=== PATIENT | male | born 1935 | race Caucasian/White ===

== ENCOUNTER 2017-10-26 20:41 | Outpatient (CLI) | payer MEDICARE, OTHER ==
--- NOTE | 2017-10-26 22:54 | Ultrasound Report ---
Procedure Date: 10/26/2017 Accession Number: [id number] / [id number] Procedure: US - Retroperitoneal CPT Code: FULL RESULT: EXAM: RENAL ULTRASOUND EXAM DATE: 10/26/2017 09:22 PM. CLINICAL HISTORY: RENAL TUBULO-INTERSTITIAL DISEASE, UNSPECIFIED. COMPARISON: None. TECHNIQUE: Real-time scanning was performed with static images obtained. FINDINGS: Right Kidney: 9.5 x 5.1 x 5.5 cm. Normal echotexture with no stones, contour-deforming masses, or hydronephrosis. Left Kidney: 10.4 x 4.3 x 4.9 cm. Normal echotexture with no stones, contour-deforming masses, or hydronephrosis. Bladder: Bilateral jets seen. The prevoid bladder volume was 571 cc. The postvoid bladder volume was 405 cc. Other: None. IMPRESSION: 1. Kidneys are unremarkable. 2. Large postvoid residual measuring 405 cc. 3. Bilateral ureteral jets are seen in the bladder. [facility] The call report notification system was initiated by Dr. Dharmesh Thrasher at 22:48 hrs on 10/26/17. The above findings were discussed with Dr. David by Dr. Dharmesh Thrasher at 22:53 hrs on 10/26/17.
== END 2017-10-26 20:42 | disposition home or self-care (01) ==
LOC: DI 20:41
PROVIDERS: ATTEND Specialist
DX: R41.9 Unspecified symptoms and signs involving cognitive functions and awareness (principal); N15.9 Renal tubulo-interstitial disease, unspecified
CPT/HCPCS: 76770

== ENCOUNTER 2017-11-20 08:27 | Outpatient (CLI) | payer MEDICARE, OTHER ==
--- NOTE | 2017-11-20 13:36 | CT Report ---
Procedure Date: 11/20/2017 Accession Number: [id number] / [id number] Procedure: CT - Lumbar Spine W/O CPT Code: FULL RESULT: EXAM: CT LUMBAR SPINE WITHOUT CONTRAST EXAM DATE: 11/20/2017 08:53 AM. CLINICAL HISTORY: Chronic low back pain. COMPARISONS: MRI 02/27/2015. TECHNIQUE: Thin-section axial images were acquired of the lumbar spine from T10 to S1 without contrast. Post-processing: Coronal and sagittal reformats. Other: None. In accordance with CT protocol optimization, one or more of the following dose reduction techniques were utilized for this exam: automated exposure control, adjustment of mA and/or KV based on patient size, or use of iterative reconstructive technique. FINDINGS: Alignment: 11 degrees convex right scoliosis centered at L2. No spondylolisthesis. Bones: Five [id number] lumbar vertebral bodies are present. Osteopenia. New mild to moderate anterior compression fracture at L4, centered toward the left. Subtle sclerosis present at this site. 35% height loss anteriorly. 4 mm retropulsion of the posterior superior aspect. Disk Levels/Facets: Flowing anterior and right lateral osteophytes partially visualized in the lower thoracic spine. T10-T11: Small disk osteophyte complex. Minimal central canal stenosis. Mild bilateral neural foramen stenosis. T11-T12: Small disk osteophyte complex. Minimal central canal stenosis. Mild bilateral neural foramen stenosis. T12-L1: Small disk osteophyte complex. Mild bilateral facet hypertrophy. This is similar. L1-L2: Small disk osteophyte complex. Mild bilateral facet hypertrophy. Minimal central canal stenosis. This is similar. L2-L3: Small disk osteophyte complex. Moderate bilateral facet and ligamentum flavum hypertrophy. Moderate central canal stenosis. Mild right and moderate left neural foramen stenosis. This is similar. L3-L4: Small disk osteophyte complex. Moderate bilateral facet and ligamentum flavum hypertrophy. Retropulsion of the posterior superior aspect of L4 contributes to severe central canal stenosis, progressed. Moderate to severe bilateral neural foramen stenosis, progressed. L4-L5: Small disk osteophyte complex. Right paracentral and foraminal disk protrusion increased in conspicuity. Moderate to severe bilateral facet and ligamentum flavum hypertrophy. At least moderate central canal stenosis, slightly progressed. Moderate to severe right neural foramen stenosis, slightly progressed. L5-S1: Small disk osteophyte complex. Moderate bilateral facet hypertrophy. Moderate bilateral neural foramen stenosis. This is similar. Musculature: Mild fatty atrophy in the posterior paraspinous musculature. Other: Peribronchial thickening partially visualized. Ovoid focus of intermediate attenuation present along the medial aspect right lower lobe measuring approximately 5.8 x 2.4 x 4.3 cm. Curvilinear calcifications present along the distal aspect. This may abut the posterior right aspect of the esophagus. Severe atherosclerosis in the abdominal aorta and bilateral iliac arteries. Moderate to severe degenerative changes at the sacroiliac joints. Degenerative changes partially visualized at the bilateral hips. IMPRESSION: 1. Acute or subacute burst fracture at L4 with mild to moderate anterior height loss. Retropulsion contributes to severe central canal stenosis at L3-L4, progressed from previous. 2. Disk osteophyte complex, right paracentral and foraminal disk protrusion, and facet hypertrophy at L4-L5 result in at least moderate central canal stenosis and moderate to severe right neural foramen stenosis, progressed. 3. Moderate to severe degenerative disk and facet changes. Otherwise similar compared to 2015. 4. 5.8 cm ovoid lesion posterior medial aspect right lower lobe. This is incompletely evaluated on the current exam. This may be due to congenital anomaly such as sequestration or duplication cyst. Soft tissue mass not excluded. Recommend correlation with any prior CT chest. If none has been performed, CT chest with IV contrast recommended for further characterization. [facility]
== END 2017-11-20 08:28 | disposition home or self-care (01) ==
LOC: DI 08:27
PROVIDERS: ATTEND Family Medicine
DX: S32.041A Stable burst fracture of fourth lumbar vertebra, initial encounter for closed fracture (principal); M51.36 Other intervertebral disc degeneration, lumbar region; M48.061 Spinal stenosis, lumbar region without neurogenic claudication; M25.78 Osteophyte, vertebrae
CPT/HCPCS: 72131

== ENCOUNTER 2017-11-26 13:38 | Outpatient (CLI) | payer MEDICARE, OTHER | END 2017-11-26 13:39 | disposition critical access hospital (66) | LOC: EMS 13:38 | PROVIDERS: ATTEND Surgery | DX: M54.9 Dorsalgia, unspecified (principal) | CPT/HCPCS: A0425; A0429 ==

== ENCOUNTER 2017-11-26 13:51 | Emergency (ER) | payer MEDICARE, OTHER ==
--- NOTE | 2017-11-26 14:33 | ED Physician Documentation ---
PD HPI BACK INJURY - Stated complaint Stated Complaint: GLF - History obtained from History obtained from: Patient, EMS - History of Present Illness Location: Lower Type of injury: Fall Where injury occurred: Home Timing - onset: Today, How many days ago (5-6 days ago with initial fall. He had been having general weakness with unsteadiness of gait and had had some falls. He fell about 5-6 days ago with low back pain. He was seen in the office and subsequently had a outpatient CT scan showing an L4 burst fracture. He was prescribed tramadol for the pain. His and he states he was not getting much pain relief with this. He was using a cane or walker to help with ambulating. He fell again today and had increased pain in the low back. He has been having numbness in the legs intermittently over the last week or so. He denies any increase in the symptoms.) Timing - details: Abrupt onset, Still present, Waxing and waning Quality: Pain, Sharp, Aching Improved by: Rest Worsened by: Moving Associated symptoms: Numbness (intermittent in both legs anteriorly the past week.). No: Fever, Weakness, Incontinent of urine Contributing factors: No: Anticoagulated Recently seen: Clinic (primary care with eval of back pain, had outpt CT scan and Rx Tramadol for pain, which was not helping at all.), Other (Has appt with Dr. Madrigal, back surgeon, in [place] tomorrow.) Review of Systems Constitutional: denies: Fever, Chills, Myalgias Nose: denies: Rhinorrhea / runny nose, Congestion Throat: denies: Sore throat Cardiac: denies: Chest pain / pressure Respiratory: denies: Dyspnea, Cough GI: denies: Abdominal Pain, Vomiting : denies: Incontinent Skin: denies: Abrasion (s), Laceration (s) Neurologic: reports: Numbness (intermittently in both legs the past week or so.) . denies: Focal weakness, Altered mental status, Headache, Head injury PD PAST MEDICAL HISTORY - Past Medical History Cardiovascular: High cholesterol Respiratory: None GI: Colon polyps : Benign prostate hypertrophy HEENT: Other Musculoskeletal: Osteoarthritis, Osteoporosis, Other - Past Surgical History General: Colonoscopy Ortho: Other - Present Medications Home Medications: Ambulatory Orders Medication Instructions Recorded Confirmed Aspirin 325 mg PO QDAC 12/31/12 12/31/12 Atorvastatin Calcium [Lipitor] 10 mg PO QDAC 12/31/12 12/31/12 Cholecalciferol (Vitamin D3) 400 unit PO 12/31/12 12/31/12 [Vitamin D] [place]-3 Fatty Acids [Fish Oil] 300 mg PO QDAC 12/31/12 12/31/12 Oxycodone HCl/Acetaminophen 1 each PO Q6H PRN #20 tablet 11/26/17 [Percocet 5-325 mg Tablet] - Allergies Allergies/Adverse Reactions: Allergies Allergy/AdvReac Type Severity Reaction Status Date / Time No Known Drug Allergies Allergy Verified 11/26/17 19:03 PD ED PE NORMAL - Vitals Vital signs reviewed: Yes - General General: Alert and oriented X 3, Well developed/nourished, Other (appears in pain with ROM of the back. ) - HEENT HEENT: Atraumatic - Neck Neck: Supple, no meningeal sign, No bony TTP, No adenopathy - Cardiac Cardiac: RRR, No murmur - Respiratory Respiratory: Clear bilaterally - Abdomen Abdomen: Soft, Non tender - Back Back: No CVA TTP, Other (tender lower lumbar area to palpation and percussion. ) - Derm Derm: Normal color, Warm and dry - Extremities Extremities: No deformity, No tenderness to palpate, Normal ROM s pain, No edema - Neuro Neuro: No motor deficit (he has motion of the legs and feet/ankles. ), Other ( subjective numbness in legs. Can feel sensation in feet and ankles/legs. ) Eye Opening: Spontaneous Motor: Obeys Commands Verbal: Oriented GCS Score: 15 Results - Vitals Vitals: Vital Signs - 24 hr 11/26/17 11/26/17 14:00 17:06 Temperature 36.1 C L 36.0 C L Heart Rate 65 82 Respiratory 18 18 Rate Blood Pressure 119/63 118/67 O2 Saturation 100 99 Oxygen O2 Source Room air - Rads (name of study) lumbar CT Radiology: Prelim report reviewed (stable appearance L4 burst fracture from prior exam last week. ) PD MEDICAL DECISION MAKING - ED course Complexity details: reviewed results, re-evaluated patient (much improved pain with IV meds. Awake and alert. Sitting up with LSO brace comfortably. ), considered differential (He had had back pain from a fall last week and had a CT of it showing the burst fracture. He fell again today with worsening pain. Repeat CT did not show any interval change. He felt much better with some pain medicine and a LSO brace. He had been prescribed tramadol and was not getting much relief with that. He states he felt much better with a little stronger pain medicine here. He was sitting up with the brace on and felt comfortable sitting sitting and standing. He has an appointment with a back specialist tomorrow in [place]. He does have complaint of some numbness in the legs but is able to distinguish light touch and movement. He does not have any obvious weakness in the legs. I think he can be discharged at this time.), d/w patient - Sepsis Event Vital Signs: Vital Signs - 24 hr 11/26/17 11/26/17 14:00 17:06 Temperature 36.1 C L 36.0 C L Heart Rate 65 82 Respiratory 18 18 Rate Blood Pressure 119/63 118/67 O2 Saturation 100 99 Oxygen O2 Source Room air Departure - Departure Disposition: 01 Home, Self Care Clinical Impression: Fall from slip, trip, or stumble Qualifiers: Encounter type: initial encounter Qualified Code(s): W01.0XXA - Fall on same level from slipping, tripping and stumbling without subsequent striking against object, initial encounter Lumbar burst fracture Qualifiers: Encounter type: subsequent encounter Fracture type: closed Fracture healing: with routine healing Qualified Code(s): S32.001D - Stable burst fracture of unspecified lumbar vertebra, subsequent encounter for fracture with routine healing Condition: Stable Record reviewed to determine appropriate education?: Yes Instructions: ED Fx Comp Vertebral Follow-Up: Mesfin Powell DO [Primary Care Provider] - Nan Madrigal MD [Physician No Access] - Prescriptions: Oxycodone HCl/Acetaminophen [Percocet 5-325 mg Tablet] 1 each PO Q6H PRN #20 tablet PRN Reason: Pain Comments: Use a back brace for comfort when up and around and you can wear it when laying down. It is okay to take it off when laying down. Continue your current medications. You can use 1-2 tramadol every 6 hours if needed for pain. Alternatively you can change to a stronger pain medicine oxycodone every 6-8 hours. Follow-up with the back specialist Dr. Madrigal tomorrow as planned in [place]. Discharge Date/Time: 11/26/17 17:34
[2017-11-26] MEDS ORDERED: KETOROLAC 15 MG/ML VIAL IVP STA (14:41)
[2017-11-26] MEDS ORDERED: HYDROmorphone 2 MG/ML VIAL IVP STA (14:41)
--- NOTE | 2017-11-26 16:54 | CT Report ---
Procedure Date: 11/26/2017 Accession Number: [id number] / [id number] Procedure: CT - Lumbar Spine W/O CPT Code: FULL RESULT: EXAM: CT LUMBAR SPINE WITHOUT CONTRAST EXAM DATE: 11/26/2017 03:56 PM. CLINICAL HISTORY: Recent L4 burst fracture and fell again 2 days ago. COMPARISONS: 11/20/2017. TECHNIQUE: Thin-section axial images were acquired of the lumbar spine from T12 to S1 without contrast. Post-processing: Coronal and sagittal reformats. Other: None. In accordance with CT protocol optimization, one or more of the following dose reduction techniques were utilized for this exam: automated exposure control, adjustment of mA and/or KV based on patient size, or use of iterative reconstructive technique. FINDINGS: No significant interval change compared to the exam of 6 days ago. 11 degree convex right scoliosis centered at L2 as before. Stable 35% height loss L4 anteriorly with 4 mm retropulsion of the posterior-superior aspect. Anterior fracture lines slightly more visible than on preceding study, may be technical. Multilevel degenerative changes with disk space narrowing, vacuum phenomenon, and facet joint arthropathy unchanged with similar degree of central spinal stenosis most marked at L3-L4 and L4-L5 . Varying degrees of neural foraminal stenosis also noted. Incompletely seen ovoid posterior medial right lower lobe soft tissue mass as before. Consider evaluation as previously recommended. Markedly distended urinary bladder. IMPRESSION: Markedly distended urinary bladder, new since 11/20/2017. Otherwise stable exam with particular reference to multilevel degenerative change resulting in varying degrees of central spinal and neural foraminal stenosis and stable L4 burst fracture. No new bony findings. [facility]
[2017-11-26 17:07] VITALS: BP 118/67
== END 2017-11-26 17:34 | disposition home or self-care (01) ==
LOC: EDUNIT# → ED 13:51
DX: S32.041A Stable burst fracture of fourth lumbar vertebra, initial encounter for closed fracture (principal); W01.0XXA Fall on same level from slipping, tripping and stumbling without subsequent striking against object, initial encounter; Y92.009 Unspecified place in unspecified non-institutional (private) residence as the place of occurrence of the external cause; R53.1 Weakness; R26.81 Unsteadiness on feet; Z91.81 History of falling; Z79.82 Long term (current) use of aspirin
CPT/HCPCS: 72131; 99283

== ENCOUNTER 2017-11-26 18:44 | Outpatient (CLI) | payer MEDICARE, OTHER | END 2017-11-26 18:45 | disposition critical access hospital (66) | LOC: EMS 18:44 | PROVIDERS: ATTEND Surgery | DX: M54.9 Dorsalgia, unspecified (principal); W01.0XXA Fall on same level from slipping, tripping and stumbling without subsequent striking against object, initial encounter; Z91.81 History of falling; Y92.008 Other place in unspecified non-institutional (private) residence as the place of occurrence of the external cause | CPT/HCPCS: A0425; A0429 ==

== ENCOUNTER 2017-11-26 18:56 | Emergency (ER) | payer MEDICARE, OTHER ==
[2017-11-26 20:32] LABS: BASOPHILS % (AUTO) 0.2 %; EOSINOPHILS % (AUTO) 0.3 %; HGB - HEMOGLOBIN 13.3 g/dL (14.0-18.0); LYMPHOCYTES # (AUTO) 3.7 10^3/uL (1.5-3.5); LYMPHOCYTES % (AUTO) 27.8 %; MEAN CORPUSCULAR HEMOGLOBIN 31.2 pg (27.0-31.0); MEAN CORPUSCULAR HGB CONC 34.8 g/dL (32.0-36.0); MEAN CORPUSCULAR VOLUME 89.9 fL (80.0-94.0); MEAN PLATELET VOLUME 6.9 fL (7.4-11.4); MONOCYTES # (AUTO) 0.7 10^3/uL (0.0-1.0); MONOCYTES % (AUTO) 5.2 %; NEUTROPHILS # (AUTO) 8.9 10^3/uL (1.5-6.6); NEUTROPHILS % (AUTO) 66.5 %; PLT - PLATELET COUNT 314 10^3/uL (130-450); RED BLOOD COUNT 4.27 10^6/uL (4.70-6.10); RED CELL DISTRIBUTION WIDTH 13.7 % (12.0-15.0); WHITE BLOOD COUNT 13.4 x10^3/uL (4.8-10.8)
[2017-11-26 20:41] LABS: BILIRUBIN,URINE NEGATIVE (NEGATIVE); GLUCOSE, URINE (UA) NEGATIVE (NEGATIVE); KETONES,URINE (UA) NEGATIVE (NEGATIVE); LEUKOCYTE ESTERASE, URINE NEGATIVE (NEGATIVE); NITRITE,URINE NEGATIVE (NEGATIVE); OCCULT BLOOD,URINE NEGATIVE (NEGATIVE); PROTEIN,URINE NEGATIVE (NEGATIVE); UROBILINOGEN,URINE 0.2 (NORMAL) E.U./dL (NORMAL)
[2017-11-26 20:45] LABS: CLARITY,URINE CLEAR (CLEAR)
[2017-11-26 20:46] LABS: ALBUMIN 3.5 g/dL (3.2-5.5); ALBUMIN/GLOBULIN RATIO 1.1 (1.0-2.2); BILIRUBIN,TOTAL 1.3 mg/dL (0.2-1.0); CALCIUM 8.9 mg/dL (8.5-10.3); CREATININE 1.3 mg/dL (0.6-1.2); TOTAL PROTEIN 6.8 g/dL (6.7-8.2)
--- NOTE | 2017-11-26 21:21 | XRAY Report ---
Procedure Date: 11/26/2017 Accession Number: [id number] / [id number] Procedure: XR - Chest 1 View X-Ray CPT Code: 46696 FULL RESULT: EXAM: CHEST RADIOGRAPHY EXAM DATE: 11/26/2017 09:00 PM. CLINICAL HISTORY: Hypoxic. COMPARISON: XR CHEST PA AND LAT 04/25/2007. TECHNIQUE: 1 view. FINDINGS: Lungs/Pleura: No focal opacities evident. No pleural effusion. No pneumothorax. Mediastinum: Within exam limitations, the cardiomediastinal contour is normal. Other: None. IMPRESSION: Normal single view chest. [facility]
[2017-11-26 21:57] VITALS: BP 91/63
--- NOTE | 2017-11-26 21:59 | ED Physician Documentation ---
PD HPI BACK INJURY - Stated complaint Stated Complaint: GLF - History obtained from History obtained from: Patient - History of Present Illness Location: Lower Type of injury: Fall Where injury occurred: Home Timing - onset: How many weeks ago (1) Timing - details: Abrupt onset, Still present Quality: Pain, Spasm, Similar to prior episodes Similar symptoms before: Work up / diagnostics, Treatment Recently seen: Emergency Dept - Additional information Additional information: Patient is a 81 year old male presenting to the emergency department for back pain. Patient fell about 6 days ago. At that time he had a lumbar burst fracture. Patient was treated with pain medications and discharged home. patient came back to the emergency department earlier today because he fell again. Patient was placed in a brace and subsequently discharged again. Family reports that the patient started to fall back again today. The patient was caught by . Patient did not develop significant trauma. Patient has follow up tomorrow with spinal surgeon. Patient has had some burning sensation down his legs for the last 6 days that is unchanged. Review of Systems Ten Systems: 10 systems reviewed and negative Constitutional: denies: Fever, Chills Cardiac: denies: Chest pain / pressure, Palpitations Respiratory: denies: Dyspnea, Cough GI: denies: Nausea, Vomiting : reports: Unable to Void Skin: denies: Rash, Lesions, Laceration (s) Musculoskeletal: reports: Back pain Neurologic: reports: Numbness Immunocompromised: denies: Immunocompromised PD PAST MEDICAL HISTORY - Past Medical History Cardiovascular: High cholesterol Respiratory: None GI: Colon polyps : Benign prostate hypertrophy HEENT: Other Musculoskeletal: Osteoarthritis, Osteoporosis, Other - Past Surgical History General: Colonoscopy Ortho: Other - Present Medications Home Medications: Ambulatory Orders Medication Instructions Recorded Confirmed Aspirin 325 mg PO QDAC 12/31/12 12/31/12 Atorvastatin Calcium [Lipitor] 10 mg PO QDAC 12/31/12 12/31/12 Cholecalciferol (Vitamin D3) 400 unit PO 12/31/12 12/31/12 [Vitamin D] [place]-3 Fatty Acids [Fish Oil] 300 mg PO QDAC 12/31/12 12/31/12 Oxycodone HCl/Acetaminophen 1 each PO Q6H PRN #20 tablet 11/26/17 [Percocet 5-325 mg Tablet] - Allergies Allergies/Adverse Reactions: Allergies Allergy/AdvReac Type Severity Reaction Status Date / Time No Known Drug Allergies Allergy Verified 11/26/17 19:03 - Social History Does the pt smoke?: No Smoking Status: Never smoker PD ED PE NORMAL - Vitals Vital signs reviewed: Yes - General General: Alert and oriented X 3, No acute distress - HEENT HEENT: Atraumatic - Cardiac Cardiac: RRR - Respiratory Respiratory: No respiratory distress, Clear bilaterally - Abdomen Abdomen: Soft, Non tender, Non distended - Derm Derm: Normal color - Extremities Extremities: No deformity, No edema - Neuro Neuro: Alert and oriented X 3, Other (mild sensory deficits on bilateral laterl legs) Eye Opening: Spontaneous Motor: Obeys Commands Verbal: Oriented GCS Score: 15 Results - Vitals Vitals: Vital Signs - 24 hr 11/26/17 11/26/17 11/26/17 18:59 20:09 21:55 Temperature 36.4 C L 36.5 C Heart Rate 76 85 87 Respiratory 20 20 20 Rate Blood Pressure 96/58 L 103/59 L 91/63 O2 Saturation 97 97 96 Oxygen O2 Source Room air - Labs Labs: Laboratory Tests 11/26/17 11/26/17 11/26/17 20:10 20:25 20:25 WBC 13.4 H RBC 4.27 L Hgb 13.3 L Hct 38.4 L MCV 89.9 MCH 31.2 H MCHC 34.8 RDW 13.7 Plt Count 314 MPV 6.9 L Neut # (Auto) 8.9 H Lymph # (Auto) 3.7 H Wallace # (Auto) 0.7 Eos # (Auto) 0.0 Baso # (Auto) 0.0 Absolute Nucleated RBC 0.00 Nucleated RBC % 0.0 Sodium 131 L Potassium 3.8 Chloride 92 L Carbon Dioxide 28 Anion Gap 11.0 BUN 28 H Creatinine 1.3 H Estimated GFR (MDRD) 53 L Glucose 101 H Calcium 8.9 Total Bilirubin 1.3 H AST 25 ALT 23 Alkaline Phosphatase 89 Total Protein 6.8 Albumin 3.5 Globulin 3.3 Albumin/Globulin Ratio 1.1 Lipase 28 Urine Color YELLOW Urine Clarity CLEAR Urine pH 7.0 Ur Specific [place] <=1.005 Urine Protein NEGATIVE Urine Glucose (UA) NEGATIVE Urine Ketones NEGATIVE Urine Occult Blood NEGATIVE Urine Nitrite NEGATIVE Urine Bilirubin NEGATIVE Urine Urobilinogen 0.2 (NORMAL) Ur Leukocyte Esterase NEGATIVE Ur Microscopic Review NOT INDICATED Urine Culture Comments NOT INDICATED PD MEDICAL DECISION MAKING - ED course Complexity details: reviewed old records, reviewed results, re-evaluated patient , considered differential, d/w patient, d/w family ED course: Patient was seen and examined at bedside. labs were drawn and urine was collected. A lengthy discussion was had with the patient and family concerning the most appropriate care. While patient did have difficulty with ambulation and pain it was deemed more important to see the spine surgeon tomorrow who could provide the most definitive care. Arrangements were made to help with transport and patient was transported in stable condition. - Sepsis Event Vital Signs: Vital Signs - 24 hr 11/26/17 11/26/17 11/26/17 18:59 20:09 21:55 Temperature 36.4 C L 36.5 C Heart Rate 76 85 87 Respiratory 20 20 20 Rate Blood Pressure 96/58 L 103/59 L 91/63 O2 Saturation 97 97 96 Oxygen O2 Source Room air Departure - Departure Disposition: 01 Home, Self Care Clinical Impression: Lumbar burst fracture Condition: Stable Instructions: ED Fx Comp Vertebral Follow-Up: Mesfin Powell DO [Primary Care Provider] - Comments: it is important that you follow up with your spinal surgeon tomorrow. You should continue with your pain control. You may return to the emergency department at any time for new, worsening or uncontrollable symptoms.
== END 2017-11-26 22:45 | disposition home or self-care (01) ==
LOC: EDUNIT# → ED 18:56
DX: S32.041A Stable burst fracture of fourth lumbar vertebra, initial encounter for closed fracture (principal); W01.0XXA Fall on same level from slipping, tripping and stumbling without subsequent striking against object, initial encounter; Y92.009 Unspecified place in unspecified non-institutional (private) residence as the place of occurrence of the external cause; R53.1 Weakness; R26.81 Unsteadiness on feet; Z91.81 History of falling; Z79.82 Long term (current) use of aspirin
CPT/HCPCS: 36415; 71045; 72131; 80053; 81003; 83690; 85025; 96374; 96375; 99283; 99284; J1170; 81001; 87086

== ENCOUNTER 2017-11-26 22:51 | Outpatient (CLI) | payer MEDICARE, OTHER | END 2017-11-26 22:52 | disposition home or self-care (01) | LOC: EMS 22:51 | PROVIDERS: ATTEND Surgery | DX: M54.9 Dorsalgia, unspecified (principal); W01.0XXA Fall on same level from slipping, tripping and stumbling without subsequent striking against object, initial encounter; Z91.81 History of falling; Y92.008 Other place in unspecified non-institutional (private) residence as the place of occurrence of the external cause | CPT/HCPCS: A0425; A0428; A0429 ==

== ENCOUNTER 2017-12-07 09:15 | Outpatient (CLI) | payer MEDICARE, OTHER ==
[2017-12-07 10:56] LABS: BASOPHILS % (AUTO) 0.1 %; EOSINOPHILS # (AUTO) 0.1 10^3/uL (0.0-0.7); EOSINOPHILS % (AUTO) 0.7 %; HGB - HEMOGLOBIN 13.9 g/dL (14.0-18.0); LYMPHOCYTES # (AUTO) 3.7 10^3/uL (1.5-3.5); MEAN CORPUSCULAR HEMOGLOBIN 31.2 pg (27.0-31.0); MEAN CORPUSCULAR HGB CONC 34.1 g/dL (32.0-36.0); MEAN CORPUSCULAR VOLUME 91.6 fL (80.0-94.0); MEAN PLATELET VOLUME 7.3 fL (7.4-11.4); MONOCYTES # (AUTO) 0.4 10^3/uL (0.0-1.0); MONOCYTES % (AUTO) 3.5 %; NEUTROPHILS # (AUTO) 7.8 10^3/uL (1.5-6.6); NEUTROPHILS % (AUTO) 64.7 %; PLT - PLATELET COUNT 339 10^3/uL (130-450); RED BLOOD COUNT 4.45 10^6/uL (4.70-6.10); RED CELL DISTRIBUTION WIDTH 14.1 % (12.0-15.0); WHITE BLOOD COUNT 12.1 x10^3/uL (4.8-10.8)
[2017-12-07 11:10] LABS: BUN - BLOOD UREA NITROGEN 18 mg/dL (6-20); CARBON DIOXIDE - CO2 27 mmol/L (21-32); CHLORIDE 89 mmol/L (101-111); CREATININE 1.1 mg/dL (0.6-1.2); GFR - MDRD 65 (>89); GLUCOSE 149 mg/dL (70-100); SODIUM 128 mmol/L (135-145)
[2017-12-07 11:28] LABS: CRP - C-REACTIVE PROTEIN < 1.0 mg/dL (0-1.0)
== END 2017-12-07 09:16 | disposition home or self-care (01) ==
LOC: LAB.R 09:15
DX: M51.36 Other intervertebral disc degeneration, lumbar region (principal); D64.9 Anemia, unspecified; I10 Essential (primary) hypertension; R79.82 Elevated C-reactive protein (CRP); R70.0 Elevated erythrocyte sedimentation rate; R68.89 Other general symptoms and signs
CPT/HCPCS: 80048; 85025; 85651; 86140

== ENCOUNTER 2017-12-07 10:22 | Outpatient (CLI) | payer MEDICARE, OTHER ==
[2017-12-07] MEDS ORDERED: GADOBUTROL 10 MMOL/10 ML VIAL ONE (11:02)
[2017-12-07] MEDS ORDERED: GADOBUTROL 10 MMOL/10 ML VIAL IVP ONE (11:17)
--- NOTE | 2017-12-07 13:03 | MRI Report ---
Reason: CLOSED COMPRESSION FRACTURE OF L3 LUMBAR VERTEBRA Procedure Date: 12/07/2017 Accession Number: [id number] / [id number] Procedure: MRI - Lumbar Spine W/WO CPT Code: FULL RESULT: EXAM: MRI LUMBAR SPINE WITHOUT AND WITH CONTRAST EXAM DATE: 12/07/2017 11:08 AM. CLINICAL HISTORY: Closed compression fracture of L3 lumbar vertebra. COMPARISONS: Lumbar spine w/o contrast 11/20/2017 8:41 AM. TECHNIQUE: Multiplanar, multisequence T1-weighted and fluid-sensitive sequences of the lumbar spine from T12 to S1 before and after administration of intravenous contrast. Other: None. IV contrast: 10 mL of Gadavist. FINDINGS: Spinal Canal: The conus terminates at L1-L2. The conus medullaris and cauda equina are unremarkable. Alignment: There is a 16 degree dextroscoliosis centered on L2-L3. There is a 3 mm anterolisthesis at L3-L4. Bone Marrow: Five odx-ejn-ltodvte lumbar vertebral bodies are assumed. There is a subacute, 2-column fracture of the superior endplate of L4. The fracture mainly affects the left side of the endplate, with less than 50% loss of vertebral body height. There is mild edema of the inferior endplate of L3. There is no abnormal marrow signal or enhancement to suggest a pathologic fracture. Disk Levels/Facets: L1-L2: There is a broad-based posterior disk bulge and facet joint osteoarthritis causing mild canal narrowing. There is moderate right and mild left foraminal narrowing. L2-L3: There is a circumferential disk bulge with endplate osteophytes. There is moderate facet joint osteoarthritis with ligamentum flavum redundancy. The findings cause mild canal narrowing. The left lateral recess is narrowed, and the left L3 nerve root is posteriorly displaced. There is moderate bilateral foraminal narrowing. L3-L4: Retropulsed fragments combined with circumferential endplate osteophytes and severe facet joint osteoarthritis with ligamentum flavum redundancy to cause severe spinal canal narrowing. There is minimal CSF visible between the cauda equina nerve roots. There is moderate bilateral foraminal narrowing. Facet joint osteophytes superiorly displace the right L3 nerve root within the neural foramen. L4-L5: There is a broad-based posterior disk bulge with a right paracentral disk protrusion and moderate facet joint osteoarthritis with ligamentum flavum redundancy. The findings cause mild canal narrowing. The disk protrusion contacts the right L5 nerve root in the lateral recess. There is moderate right and mild left foraminal narrowing. L5-S1: There is disk desiccation with loss of disk height. There is mild bilateral facet joint osteoarthritis. There is mild canal narrowing. There is mild bilateral foraminal narrowing. Spinal Canal: No enhancing masses within the spinal canal. No epidural abscess. Musculature: Normal. No edema, abnormal enhancement, or fatty atrophy. Other: The visualized retroperitoneum is unremarkable. IMPRESSION: 1. Subacute, 2-column fracture of the left side of the superior endplate of L4 with mild retropulsion of fragments. 2. 16 degree dextroscoliosis centered on L2-L3. 3. L1-L2: Mild canal narrowing. There is moderate right and mild left foraminal narrowing. 4. L2-L3: Mild canal narrowing. The left lateral recess is narrowed, and the left L3 nerve root is posteriorly displaced. There is moderate bilateral foraminal narrowing. 5. L3-L4: Retropulsed fragments combine with circumferential endplate osteophytes and severe facet joint osteoarthritis with ligamentum flavum redundancy to cause severe spinal canal narrowing. There is minimal CSF visible between the cauda equina nerve roots. There is moderate bilateral foraminal narrowing. Facet joint osteophytes superiorly displace the right L3 nerve root within the neural foramen. 6. L4-L5: Mild canal narrowing secondary to disk and facet joint degeneration. The disk protrusion contacts the right L5 nerve root in the lateral recess. There is moderate right and mild left foraminal narrowing. 7. L5-S1: Mild canal narrowing secondary to disk and facet joint degeneration. There is mild bilateral foraminal narrowing. 8. Severe canal narrowing at L3-L4 was present on the prior study from 2014. Degenerative change at the remaining levels, is largely unaltered when compared with the prior study. Comment: The following findings are so common in adults without low back pain that while we report their presence, they must be interpreted with caution and in the context of the clinical situation. (Reference Acek et al, Spine 2001) Prevalence of findings in patients without low back pain: Disk degeneration (any evidence): 92% Disk desiccation/T2 signal loss: 83% Disk height loss: 56% Disk bulge: 64% Disk protrusion: 32% Annular tear/high intensity zone: 38% RADIA
== END 2017-12-07 10:23 | disposition home or self-care (01) ==
LOC: DI 10:22
PROVIDERS: ATTEND Orthopaedic Surgery
DX: S32.030G Wedge compression fracture of third lumbar vertebra, subsequent encounter for fracture with delayed healing (principal); M51.16 Intervertebral disc disorders with radiculopathy, lumbar region; M51.36 Other intervertebral disc degeneration, lumbar region; M47.816 Spondylosis without myelopathy or radiculopathy, lumbar region; M48.061 Spinal stenosis, lumbar region without neurogenic claudication; M51.37 Other intervertebral disc degeneration, lumbosacral region; M48.07 Spinal stenosis, lumbosacral region; M41.86 Other forms of scoliosis, lumbar region; S32.049A Unspecified fracture of fourth lumbar vertebra, initial encounter for closed fracture; D64.9 Anemia, unspecified; I10 Essential (primary) hypertension; R79.82 Elevated C-reactive protein (CRP); R70.0 Elevated erythrocyte sedimentation rate; R68.89 Other general symptoms and signs
CPT/HCPCS: 72158; 80048; 85025; 85651; 86140; A9585

== ENCOUNTER → 2017-12-07 | Outpatient (CLI) | payer MEDICARE, OTHER | LOC: RT 08:00 | PROVIDERS: ATTEND Family Medicine | DX: Z01.810 Encounter for preprocedural cardiovascular examination (principal); I49.9 Cardiac arrhythmia, unspecified; I50.9 Heart failure, unspecified | CPT/HCPCS: 93005 ==

== ENCOUNTER 2017-12-08 09:32 | Outpatient (CLI) | payer MEDICARE, OTHER | END 2017-12-08 09:33 | disposition home or self-care (01) | LOC: DI 09:32 | PROVIDERS: ATTEND Family Medicine | DX: Z01.810 Encounter for preprocedural cardiovascular examination (principal); I50.9 Heart failure, unspecified | CPT/HCPCS: 93306 ==

== ENCOUNTER 2017-12-13 08:00 | Outpatient (CLI) | payer MEDICARE, OTHER ==
[2017-12-13 20:34] LABS: BILIRUBIN,URINE NEGATIVE (NEGATIVE); GLUCOSE, URINE (UA) NEGATIVE (NEGATIVE); KETONES,URINE (UA) NEGATIVE (NEGATIVE); LEUKOCYTE ESTERASE, URINE NEGATIVE (NEGATIVE); NITRITE,URINE NEGATIVE (NEGATIVE); OCCULT BLOOD,URINE NEGATIVE (NEGATIVE); PROTEIN,URINE NEGATIVE (NEGATIVE); UROBILINOGEN,URINE 0.2 (NORMAL) E.U./dL (NORMAL)
[2017-12-13 20:42] LABS: CLARITY,URINE CLEAR (CLEAR)
== END 2017-12-13 08:01 | disposition home or self-care (01) ==
LOC: LAB.R 08:00
DX: R33.9 Retention of urine, unspecified (principal); R82.90 Unspecified abnormal findings in urine; N39.0 Urinary tract infection, site not specified
CPT/HCPCS: 81001; 81003; 87086

== ENCOUNTER 2017-12-13 11:27 | Outpatient (CLI) | payer MEDICARE, OTHER ==
[2017-12-13] MEDS ORDERED: IOPAMIDOL-300 50 ML VIAL ONE (11:39)
[2017-12-13] MEDS ORDERED: IOPAMIDOL-300 100 ML VIAL ONE (11:39)
--- NOTE | 2017-12-13 17:22 | CT Report ---
Reason: OTHER INTRA-ABDOMINAL AND PELVIC SWELLING, MASS AN Procedure Date: 12/13/2017 Accession Number: [id number] / [id number] Procedure: CT - Abdomen/Pelvis W/ CPT Code: FULL RESULT: EXAM: CT ABDOMEN AND PELVIS EXAM DATE: 12/13/2017 01:32 PM. CLINICAL HISTORY: INTRA-ABDOMINAL AND PELVIC SWELLING, recent lumbar fracture. COMPARISONS: None. TECHNIQUE: Routine helical CT imaging was performed through the abdomen and pelvis. IV contrast: ISOVUE 300 100mL. Enteric contrast: No. Reconstructions: Coronal and sagittal. In accordance with CT protocol optimization, one or more of the following dose reduction techniques were utilized for this exam: automated exposure control, adjustment of mA and/or KV based on patient size, or use of iterative reconstructive technique. FINDINGS: Lung Bases: Focal posterior medial right lower lobe soft tissue density with calcification, question bronchopulmonary sequestration, esophageal diverticulum, atelectasis, etc. Liver: Normal. No masses. Gallbladder/Bile Ducts: Distended, no radiopaque stones Spleen: Normal. Pancreas: Normal. Adrenal Glands: Normal. Kidneys: No masses. Mild bilateral hydronephrosis with a markedly distended urinary bladder.. Peritoneal Cavity/Bowel: Umbilicus fat-containing hernia hiatus measuring approximately 2.2 cm in diameter. Nonobstructing small bowel containing left inguinal hernia. No free fluid, free air or adenopathy. No masses or acute inflammatory process. Pelvic Organs: The bladder measures 18 cm in vertical by 13.6 x 14.4 cm axial, estimated volume 1900 cc's. Vasculature: No aneurysms. Arterial calcification Bones: Stable L4 burst fracture with multilevel degenerative change in the spine resulting in varying degrees of central spinal and neural foraminal stenosis. Dextroscoliosis. Other: None. IMPRESSION: 1. Massively distended urinary bladder volume approximately 1900 cc, consider Gutierrez catheter. 2. Mild bilateral hydronephrosis secondary to the distended urinary bladder. 3. Distended gallbladder without stones. 4. Fat-containing umbilical hernia. 5. Nonobstructing small bowel containing left inguinal hernia. 6. L4 burst fracture with multilevel degenerative change in the spine resulting in varying degrees of central spinal and neural foraminal stenosis with dextroscoliosis. 7. Increased soft tissue density medial right lung base with calcification, question bronchopulmonary sequestration, esophageal diverticulum, atelectasis, etc. Results called to Dr. Gallagher 12/13/17 at 17:20 RADIA
[2017-12-13] MEDS ORDERED: IOPAMIDOL-300 50 ML VIAL PO ONE (19:06)
[2017-12-13] MEDS ORDERED: IOPAMIDOL-300 100 ML VIAL IVP ONE (19:06)
== END 2017-12-13 11:28 | disposition home or self-care (01) ==
LOC: DI 11:27
PROVIDERS: ATTEND Family Medicine
DX: N32.89 Other specified disorders of bladder (principal); N13.39 Other hydronephrosis; K82.8 Other specified diseases of gallbladder; K42.9 Umbilical hernia without obstruction or gangrene; K40.90 Unilateral inguinal hernia, without obstruction or gangrene, not specified as recurrent; S32.041A Stable burst fracture of fourth lumbar vertebra, initial encounter for closed fracture; M48.061 Spinal stenosis, lumbar region without neurogenic claudication; M47.896 Other spondylosis, lumbar region; R91.8 Other nonspecific abnormal finding of lung field; R33.9 Retention of urine, unspecified; R82.90 Unspecified abnormal findings in urine; N39.0 Urinary tract infection, site not specified
CPT/HCPCS: 74177; 81003; Q9967; 81001; 87086

== ENCOUNTER 2017-12-18 08:00 | Outpatient (CLI) | payer MEDICARE, OTHER ==
[2017-12-18 11:30] LABS: CALCIUM 8.8 mg/dL (8.5-10.3); CREATININE 0.6 mg/dL (0.6-1.2)
== END 2017-12-18 08:01 ==
LOC: LAB 08:00
PROVIDERS: ATTEND Family Medicine
DX: N40.1 Benign prostatic hyperplasia with lower urinary tract symptoms (principal); R79.89 Other specified abnormal findings of blood chemistry
CPT/HCPCS: 80048

== ENCOUNTER 2017-12-18 08:00 | Outpatient (CLI) | payer MEDICARE, OTHER ==
[2017-12-18 13:07] LABS: CALCIUM 8.5 mg/dL (8.5-10.3); CREATININE 0.7 mg/dL (0.6-1.2)
== END 2017-12-18 08:01 ==
LOC: LAB.R 08:00
PROVIDERS: ATTEND Family Medicine
DX: N40.1 Benign prostatic hyperplasia with lower urinary tract symptoms (principal); R79.89 Other specified abnormal findings of blood chemistry
CPT/HCPCS: 80048

== ENCOUNTER 2017-12-26 08:00 | Outpatient (CLI) | payer MEDICARE, OTHER ==
[2017-12-26 09:38] LABS: BASOPHILS % (AUTO) 0.1 %; EOSINOPHILS % (AUTO) 0.1 %; HGB - HEMOGLOBIN 12.2 g/dL (14.0-18.0); LYMPHOCYTES # (AUTO) 3.9 10^3/uL (1.5-3.5); LYMPHOCYTES % (AUTO) 20.2 %; MEAN CORPUSCULAR HEMOGLOBIN 30.9 pg (27.0-31.0); MEAN PLATELET VOLUME 7.1 fL (7.4-11.4); MONOCYTES # (AUTO) 0.6 10^3/uL (0.0-1.0); MONOCYTES % (AUTO) 3.2 %; NEUTROPHILS # (AUTO) 14.7 10^3/uL (1.5-6.6); NEUTROPHILS % (AUTO) 76.4 %; PLT - PLATELET COUNT 482 10^3/uL (130-450); RED BLOOD COUNT 3.96 10^6/uL (4.70-6.10); WHITE BLOOD COUNT 19.3 x10^3/uL (4.8-10.8)
== END 2017-12-26 08:01 | disposition home or self-care (01) ==
LOC: LAB.R 08:00
DX: R68.89 Other general symptoms and signs (principal); I10 Essential (primary) hypertension
CPT/HCPCS: 85025

== ENCOUNTER 2017-12-26 15:20 | Outpatient (CLI) | payer MEDICARE, OTHER | END 2017-12-26 15:21 | disposition critical access hospital (66) | LOC: EMS 15:20 | PROVIDERS: ATTEND Surgery | DX: K92.0 Hematemesis (principal); R53.1 Weakness | CPT/HCPCS: A0425; A0429 ==

== ENCOUNTER 2017-12-26 15:29 | Inpatient (IN) | payer MEDICARE, OTHER ==
[2017-12-26] MEDS ORDERED: ONDANSETRON 4 MG/2 ML VIAL IVP STA (16:02)
[2017-12-26] MEDS ORDERED: SODIUM CHLORIDE 0.9% 500 ML IV ONE (16:02)
[2017-12-26] MEDS ORDERED: FAMOTIDINE 20 MG/50 ML 50 ML IV ONE (16:03)
--- NOTE | 2017-12-26 16:04 | ED Physician Documentation ---
PD HPI SKIN - Additional information Additional information: 82-year-old male presents the emergency department with complaints of increasing general weakness and nausea and vomiting patient is status post a recent surgery and currently is in rehab. The patient has been weak for quite some time but has significantly worsened in the past 2 days. The weakness is generalized. The patient now reports having vomiting today and abdominal distention. Staff at the facility reported blood. within the vomit. The patient denies chest pain, cough, fevers or chills.Symptoms are described as severe. No other associated symptoms. No relieving factors. Review of Systems Constitutional: reports: Fatigue. denies: Fever, Chills Eyes: denies: Discharge Ears: denies: Ear pain Nose: denies: Congestion Throat: denies: Sore throat GI: reports: Abdominal Pain, Nausea, Vomiting, Hematemesis : denies: Dysuria Skin: denies: Rash Neurologic: reports: Generalized weakness. denies: Headache, Head injury PD PAST MEDICAL HISTORY - Past Medical History Cardiovascular: High cholesterol Respiratory: None GI: Colon polyps : Benign prostate hypertrophy HEENT: Other Musculoskeletal: Osteoarthritis, Osteoporosis, Other - Past Surgical History General: Colonoscopy Ortho: Other - Present Medications Home Medications: Ambulatory Orders Medication Instructions Recorded Confirmed RX: Aspirin 325 mg PO QDAC 12/31/12 12/31/12 Oxycodone HCl/Acetaminophen 1 each PO Q6H PRN #20 tablet 11/26/17 [Percocet 5-325 mg Tablet] Ondansetron [Zofran Odt] 12/26/17 Polyethylene Glycol 3350 [Miralax] 12/26/17 RX: Duloxetine HCl 12/26/17 RX: Furosemide 12/26/17 RX: Morphine ER BID 12/26/17 RX: Omeprazole [PriLOSEC] 12/26/17 RX: Potassium Chloride [Klor-Con 12/26/17 M20] RX: Senna [Senokot] 12/26/17 RX: Spironolactone 12/26/17 RX: Tamsulosin HCl [Flomax] 12/26/17 RX: traMADol [Ultram] 12/26/17 - Allergies Allergies/Adverse Reactions: Allergies Allergy/AdvReac Type Severity Reaction Status Date / Time No Known Drug Allergies Allergy Verified 12/26/17 18:15 - Social History Does the pt smoke?: No Smoking Status: Never smoker PD ED PE NORMAL - General General: Alert and oriented X 3 - HEENT HEENT: Atraumatic, PERRL, EOMI, Ears normal - Cardiac Cardiac: Other (Tachycardia with an irregular rhythm) - Respiratory Respiratory: No respiratory distress, Clear bilaterally - Abdomen Abdomen: Soft. No: Non tender (Epigastric tenderness), Non distended (Mild distention) - Back Back: Other (There is a midline surgical scar over the lumbar: The wound is clean dry and intact with no erythematous changes or drainage) - Extremities Extremities: No deformity - Neuro Neuro: Alert and oriented X 3, Normal speech - Psych Psych: Normal affect Results - Vitals Vitals: Vital Signs - 24 hr 12/26/17 12/26/17 12/26/17 15:33 17:09 18:52 Temperature 37.2 C Heart Rate 111 H 96 87 Respiratory 12 20 13 Rate Blood Pressure 123/74 114/72 106/54 L O2 Saturation 96 100 100 Oxygen O2 Source Room air - EKG (time done) 16:47 Rate: Rate (enter#) Rhythm: Atrial flutter Ischemia: Non specific changes Compare to prior EKG: Old EKG unavailable - Labs Labs: Laboratory Tests 12/26/17 12/26/17 12/26/17 16:32 16:32 16:32 WBC 21.2 H RBC 4.13 L Hgb 12.7 L Hct 37.6 L MCV 91.1 MCH 30.7 MCHC 33.7 RDW 14.4 Plt Count 510 H MPV 6.6 L Neut # (Auto) 15.9 H Lymph # (Auto) 4.6 H [place] # (Auto) 0.7 Eos # (Auto) 0.0 Baso # (Auto) 0.1 Absolute Nucleated RBC 0.01 Band Neuts % (Manual) Not Reportable Abnorm Lymph % (Manual) Not Reportable Nucleated RBC % 0.0 Neutrophils # (Manual) Not Reportable Lymphocytes # (Manual) Not Reportable Monocytes # (Manual) Not Reportable Eosinophils # (Manual) Not Reportable Basophils # (Manual) Not Reportable Differential Comment MANUAL=AUTO DIFF Manual Slide Review Indicated Platelet Estimate INCREASED (>450,000) Platelet Morphology NORMAL APPEARANCE RBC Morph Micro Appear NORMAL APPEARANCE PT 12.1 INR 1.1 APTT 27.4 Sodium 131 L Potassium 4.3 Chloride 93 L Carbon Dioxide 28 Anion Gap 10.0 BUN 10 Creatinine 0.8 Estimated GFR (MDRD) 93 Glucose 123 H Lactic Acid Calcium 8.6 Total Bilirubin 0.9 AST 21 ALT 15 Alkaline Phosphatase 111 Troponin I Total Protein 6.4 L Albumin 3.1 L Globulin 3.3 Albumin/Globulin Ratio 0.9 L Lipase 24 Urine Color Urine Clarity Urine pH Ur Specific [place] Urine Protein Urine Glucose (UA) Urine Ketones Urine Occult Blood Urine Nitrite Urine Bilirubin Urine Urobilinogen Ur Leukocyte Esterase Urine RBC Urine WBC Urine WBC Clumps Ur Squamous Epith Cells Urine Bacteria Ur Microscopic Review Urine Culture Comments Blood Type Antibody Screen 12/26/17 12/26/17 12/26/17 16:32 16:32 16:32 WBC RBC Hgb Hct MCV MCH MCHC RDW Plt Count MPV Neut # (Auto) Lymph # (Auto) [place] # (Auto) Eos # (Auto) Baso # (Auto) Absolute Nucleated RBC Band Neuts % (Manual) Abnorm Lymph % (Manual) Nucleated RBC % Neutrophils # (Manual) Lymphocytes # (Manual) Monocytes # (Manual) Eosinophils # (Manual) Basophils # (Manual) Differential Comment Manual Slide Review Platelet Estimate Platelet Morphology RBC Morph Micro Appear PT INR APTT Sodium Potassium Chloride Carbon Dioxide Anion Gap BUN Creatinine Estimated GFR (MDRD) Glucose Lactic Acid Calcium Total Bilirubin AST ALT Alkaline Phosphatase Troponin I < 0.04 Total Protein Albumin Globulin Albumin/Globulin Ratio Lipase Urine Color YELLOW Urine Clarity CLOUDY Urine pH 8.0 H Ur Specific [place] 1.015 Urine Protein 30 H Urine Glucose (UA) NEGATIVE Urine Ketones 15 H Urine Occult Blood SMALL H Urine Nitrite NEGATIVE Urine Bilirubin NEGATIVE Urine Urobilinogen 1 (NORMAL) Ur Leukocyte Esterase MODERATE H Urine RBC 6-10 H Urine WBC >25 H Urine WBC Clumps PRESENT Ur Squamous Epith Cells NONE SEEN Urine Bacteria Moderate H Ur Microscopic Review INDICATED Urine Culture Comments INDICATED Blood Type AB POSITIVE Antibody Screen NEGATIVE 12/26/17 17:55 WBC RBC Hgb Hct MCV MCH MCHC RDW Plt Count MPV Neut # (Auto) Lymph # (Auto) [place] # (Auto) Eos # (Auto) Baso # (Auto) Absolute Nucleated RBC Band Neuts % (Manual) Abnorm Lymph % (Manual) Nucleated RBC % Neutrophils # (Manual) Lymphocytes # (Manual) Monocytes # (Manual) Eosinophils # (Manual) Basophils # (Manual) Differential Comment Manual Slide Review Platelet Estimate Platelet Morphology RBC Morph Micro Appear PT INR APTT Sodium Potassium Chloride Carbon Dioxide Anion Gap BUN Creatinine Estimated GFR (MDRD) Glucose Lactic Acid 1.3 Calcium Total Bilirubin AST ALT Alkaline Phosphatase Troponin I Total Protein Albumin Globulin Albumin/Globulin Ratio Lipase Urine Color Urine Clarity Urine pH Ur Specific [place] Urine Protein Urine Glucose (UA) Urine Ketones Urine Occult Blood Urine Nitrite Urine Bilirubin Urine Urobilinogen Ur Leukocyte Esterase Urine RBC Urine WBC Urine WBC Clumps Ur Squamous Epith Cells Urine Bacteria Ur Microscopic Review Urine Culture Comments Blood Type Antibody Screen - Rads (name of study) CT abd/pelvis Radiology: Final report received PD MEDICAL DECISION MAKING - ED course ED course: The patient has multiple acute issues, the patient appears to have a early bowel obstruction and a urinary tract infection which very well could be the source of his weakness. The patient will require admission to the hospital for further management of the acute issues. I discussed the findings and plan with the patient and family who understand and agree to the plan. I discussed the case with the hospitalist Dr. Russell who accepts the patient onto her service - Sepsis Event Vital Signs: Vital Signs - 24 hr 12/26/17 12/26/17 12/26/17 15:33 17:09 18:52 Temperature 37.2 C Heart Rate 111 H 96 87 Respiratory 12 20 13 Rate Blood Pressure 123/74 114/72 106/54 L O2 Saturation 96 100 100 Oxygen O2 Source Room air Departure - Departure Disposition: 66 [facility] DC/Xfer Clinical Impression: SBO (small bowel obstruction), Weakness UTI (urinary tract infection) Qualifiers: Urinary tract infection type: site unspecified Hematuria presence: with hematuria Qualified Code(s): N39.0 - Urinary tract infection, site not specified Condition: Fair Discharge Date/Time: 12/26/17 20:30
[2017-12-26 16:46] LABS: BASOPHILS # (AUTO) 0.1 10^3/uL (0.0-0.1); BASOPHILS % (AUTO) 0.3 %; EOSINOPHILS % (AUTO) 0.1 %; HGB - HEMOGLOBIN 12.7 g/dL (14.0-18.0); LYMPHOCYTES # (AUTO) 4.6 10^3/uL (1.5-3.5); LYMPHOCYTES % (AUTO) 21.7 %; MEAN CORPUSCULAR HEMOGLOBIN 30.7 pg (27.0-31.0); MEAN CORPUSCULAR HGB CONC 33.7 g/dL (32.0-36.0); MEAN CORPUSCULAR VOLUME 91.1 fL (80.0-94.0); MEAN PLATELET VOLUME 6.6 fL (7.4-11.4); MONOCYTES # (AUTO) 0.7 10^3/uL (0.0-1.0); MONOCYTES % (AUTO) 3.1 %; NEUTROPHILS # (AUTO) 15.9 10^3/uL (1.5-6.6); NEUTROPHILS % (AUTO) 74.8 %; PLT - PLATELET COUNT 510 10^3/uL (130-450); RED BLOOD COUNT 4.13 10^6/uL (4.70-6.10); RED CELL DISTRIBUTION WIDTH 14.4 % (12.0-15.0); WHITE BLOOD COUNT 21.2 x10^3/uL (4.8-10.8)
[2017-12-26 16:55] LABS: INR 1.1 (0.8-1.2); PT - PROTHROMBIN TIME 12.1 secs (9.9-12.6)
[2017-12-26 17:03] LABS: ALBUMIN 3.1 g/dL (3.2-5.5); ALBUMIN/GLOBULIN RATIO 0.9 (1.0-2.2); BILIRUBIN,TOTAL 0.9 mg/dL (0.2-1.0); CALCIUM 8.6 mg/dL (8.5-10.3); CREATININE 0.8 mg/dL (0.6-1.2); TOTAL PROTEIN 6.4 g/dL (6.7-8.2)
[2017-12-26 17:05] LABS: PLATELET MORPHOLOGY NORMAL APPEARANCE (NORMAL); RBC MORPHOLOGY (MULTIPLE) NORMAL APPEARANCE (NORMAL)
[2017-12-26 17:06] LABS: DIFFERENTIAL COMMENT MANUAL=AUTO DIFF; PLATELET ESTIMATE, MANUAL INCREASED (>450,000) (NORMAL)
[2017-12-26] MEDS ORDERED: IOPAMIDOL-300 100 ML VIAL ONE (17:08)
[2017-12-26 17:21] LABS: BILIRUBIN,URINE NEGATIVE (NEGATIVE); GLUCOSE, URINE (UA) NEGATIVE (NEGATIVE); KETONES,URINE (UA) 15 mg/dL (NEGATIVE); LEUKOCYTE ESTERASE, URINE MODERATE (NEGATIVE); NITRITE,URINE NEGATIVE (NEGATIVE); OCCULT BLOOD,URINE SMALL (NEGATIVE); PROTEIN,URINE 30 mg/dL (NEGATIVE); UROBILINOGEN,URINE 1 (NORMAL) E.U./dL (NORMAL)
[2017-12-26] MEDS ORDERED: SODIUM CHLORIDE 0.9% 1,000 ML IV ONE (17:25)
[2017-12-26 17:38] LABS: CLARITY,URINE CLOUDY (CLEAR)
[2017-12-26 17:39] LABS: BACTERIA,URINE Moderate /HPF (None Seen); SQUAMOUS EPITHELIAL CELL,UR NONE SEEN (<= Few); WBC CLUMPS,URINE PRESENT
[2017-12-26] MEDS ORDERED: IOPAMIDOL-300 100 ML VIAL IVP ONE (17:48)
--- NOTE | 2017-12-26 18:24 | CT Report ---
Reason: vomiting, abdominal distention Procedure Date: 12/26/2017 Accession Number: [id number] / [id number] Procedure: CT - Abdomen/Pelvis W/ CPT Code: FULL RESULT: EXAM: CT ABDOMEN AND PELVIS EXAM DATE: 12/26/2017 05:46 PM. CLINICAL HISTORY: Vomiting, abdominal distention. Recent lumbar spine surgery. COMPARISONS: ABDOMEN/PELVIS W/ 12/13/2017 1:00 PM. TECHNIQUE: Routine helical CT imaging was performed through the abdomen and pelvis. IV contrast: ISOVUE 300 100mL. Enteric contrast: No. Reconstructions: Coronal and sagittal. In accordance with CT protocol optimization, one or more of the following dose reduction techniques were utilized for this exam: automated exposure control, adjustment of mA and/or KV based on patient size, or use of iterative reconstructive technique. FINDINGS: Lung Bases: New small bilateral pleural effusions. New subsegmental atelectasis left posterior lung base. Increasing segmental consolidation/atelectasis right posterior lung base. Heart is of normal caliber. Liver: Normal. No masses. Gallbladder/Bile Ducts: Unremarkable. Spleen: Normal. Pancreas: Normal. Adrenal Glands: Normal. Kidneys: Normal. No masses or hydronephrosis. Peritoneal Cavity/Bowel: No free air. New small amount of free fluid. New mild dilatation involving the entirety of the small bowel without appreciable small bowel wall thickening. Previously, the 5 cm umbilical hernia only contained fat. Currently, 6 cm loop of mid ileum is within it. Hernia neck is 2.5 cm. There is narrowing of the small bowel as it traverses the hernia neck but the afferent and efferent small bowel are equal in caliber. No transition point of the small bowel. Colon is small in caliber. Multiple diverticula off the colon. Appendix not visualized but no inflammatory changes adjacent to the cecum. No significant adenopathy. Currently, there is only fluid in both small inguinal hernias. That is, no residual small bowel in the left inguinal hernia. Pelvic Organs: Interval placement of a Gutierrez catheter with complete emptying of the urinary bladder. Normal rectum. Small amount of free fluid. Vasculature: No aneurysms or other significant abnormality. Bones: Interval L3 and L4 kyphoplasty, as well as laminectomy. Other: Increasing anasarca now moderate in degree. IMPRESSION: 1. Small bilateral pleural effusions. 2. Segmental right and subsegmental left posterior bibasilar consolidation/atelectasis. 3. New short segment of mildly constricted mid ileum within the umbilical hernia. 4. However, mild dilatation of the entirety of the small bowel such that ileus is favored over mild partial distal (or tandem) small bowel obstruction. 5. Colonic diverticulosis. 6. Small bilateral inguinal hernias without bowel involvement. 7. Small amount of ascites. RADIA
[2017-12-26] MEDS ORDERED: cefTRIAXone 2 GM in SODIUM CHLORIDE 0.9% MINIBAG 100 ML IV STA (18:29)
[2017-12-26] MEDS ORDERED: SODIUM CHLORIDE FLUSH 0.9% 10 ML SYRINGE IVP PRN (19:14)
[2017-12-26] MEDS ORDERED: PROCHLORPERAZINE 10 MG/2 ML VIAL IVP PRN (19:14)
[2017-12-26] MEDS ORDERED: ONDANSETRON 4 MG/2 ML VIAL IVP PRN (19:14)
[2017-12-26] MEDS ORDERED: VANCOMYCIN PER PHARMACY IV SCH (20:00)
[2017-12-26] MEDS ORDERED: SODIUM CHLORIDE 0.9% IV SCH (20:00)
[2017-12-26] MEDS: SODIUM CHLORIDE 0.9% 1,000 ML IV SCH (21:40)
--- NOTE | 2017-12-26 21:52 | HISTORY & PHYSICAL EXAMINATION ---
Chief Complaint - Chief Complaint Chief Complaint: nausea and vomitting History of Present Illness - Admitted From Admitted From:: SNF/ER - History Obtained From Records Reviewed: CIELO Cotto History obtained from: patient and Exam Limitations: none - History of Present Illness HPI Comment/Other: He is an elderly gentleman who lives in his own home with his until recently. He has had 2 major problems over the last year. The first was weight loss. He started out at 240 pounds and an effort to lose weight deliberately dieted by eating smaller portions and never eating seconds. He was successful in his weight loss down to about 190 pounds. He has always had chronic back pain, and that became worse over the last few months. In late October into November he started falling. He had not realized how weak his legs were until he fell in the shower. He then had several subsequent falls in his own home because his legs would not support him. He was seen in our emergency room once and diagnosed as a burst fracture of L3 and another new one of L4. Even before his fall with lumbar compression fractures, he had already been diagnosis lumbar spinal stenosis on CAT scan months ago. After being evaluated by his primary care provider for the weakness and the falls, he was sent to [facility] and admitted from November 27 - November 30 for back pain, urinary retention. Pain was managed by adding long-acting opioid as well as as needed short acting opioid. He underwent steroid epidural shots. A Hensley was placed and Flomax was added for the urinary retention. From [facility] he went to [facility] for a short term of rehab. He continued to have back pain and increasing leg weakness with the right foot drop. He was evaluated by Dr. Carcamo, orthopedics, and readmitted December 18 - December 21 to [facility]. He had an L3 and L4 kyphoplasty with L2-L5 laminectomy. He did very well in the immediate postoperative period and was even starting to have slow recovery of a chronic right foot drop. But he was a 2 person assist still requiring quite a bit of help and was sent back to [facility] on December 21. He tells me that he has been slow to progress. But he has been working with physical therapy. 2 days ago he was able to walk 20 feet with a walker and a physical therapy one-person assist. Yesterday he started getting weak, for no clear reasons, to the point he couldn't get out of bed anymore. And today he started having nausea, vomiting, abdominal distention. No fever, no chills. He states that he has been doing his incentive spirometry and denies coughing or chest congestion. He denies hematemesis but the shelter facility says that there might of been coffee grounds in it. There has been no bloody stool. He had a bowel movement at the shelter facility and had another one in the emergency room. He continues to have a hensley even though the discharge summary from [place] discusses possible bladder training and removal of the hensley. In the emergency room he was evaluated by Dr. Foss. He has an elevated white cell count but no fever. He was normotensive at 123/74 and oxygenating 96% on room air. CT scan was done of the abdomen and the findings were: New small bilateral pleural effusions with subsegmental atelectasis of the left posterior lung base. Increasing segmental consolidation/atelectasis the right posterior lung base. No free air in the peritoneal cavity. New mild dilation involving the entirety of the small bowel without appreciable small bowel thickening. A 6 cm loop of mild ileum is seen in an umbilical hernia. There is narrowing of the small bowel as it transverses the hernia neck but the afferent and efferent small bowel are equal in caliber. No transition point. Small fluid-filled inguinal hernias. A Hensley catheter with complete emptying of urinary bladder. He also has diverticulosis and a small amount of ascites. Urinalysis with a chronic indwelling Hensley has a pH of 8, proteinuria, ketonuria, small occult blood, leukocyte Estrace moderate, 6-10 wet cells, greater than 25 white cells, moderate bacteria, no squamous epithelial cells. The patient is now admitted for ileus versus small bowel obstruction, a urinary tract infection vs. hensley colonization and atelectasis that may be tending toward pneumonia. History - Past Medical History Cardiovascular: reports: Hypertension (listed with [facility] but he and deny), High cholesterol, Atrial fibrillation (per his and seen by Dr. Gentile > 3 years ago) Respiratory: reports: COPD (listed in PM for [facility] but he denies) Neuro: reports: Other (mild cognitive deficit of aging) Endocrine/Autoimmune: reports: None GI: reports: Colon polyps, Other (chronic enlarging umbilical hernia) : reports: Benign prostate hypertrophy, Retention, Frequency HEENT: reports: Other Psych: reports: Depression (with the back pain), Anxiety Musculoskeletal: reports: Osteoarthritis, Osteoporosis, Other Derm: reports: None MRSA Hx?: No - Past Surgical History General: reports: Colonoscopy Ortho: reports: Spine surgery (12/18/17 as above), Other HEENT: reports: Cataracts (removed 2012, with IOL) - Family & Social History Family History Comment/Other: Mom at age 52 of an embolic brain stroke. Dad at age 54 of an enlarged heart. No siblings. 2 daughters. One lives in [place] and is an RN in the clinic. The other daughter lives near [place] and is a retiring police magistrate. He describes her having as some type of congenital anomaly near the subclavian artery requiring surgery. Living arrangement: alf (Since November 27, 2017. Plan is for him to return to home to live with his .) Living Situation: With spouse/s.o. Social History Notes: He was born in [place] and went on to then live in [place]. While in [place] he ended up learning how to fly and join the [employer]. 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 He ended up l iving in [facility] and got tired of the congestion and came to [facility] 15 years ago. He has been to his second for 26 years. While he is always had back pain, he has been independent. Able to do his activities of daily living. It was not until the last year that he has been steadily losing ground with the weight loss, went from using a cane to then a walker by October and November 2017. When he started falling in November 2017 he ended up living in a shelter facility. The plan is for him to go home after he gets enough strength. He started smoking at the age of 16 and quit before he met his second . She thinks he stopped smoking 1 pack per day around 1990. He did smoke a pipe for a couple of years. He also had a problem with alcohol abuse. But when it started affecting his job, and the possibility of losing his pension, he went to a "dry farm" 20 years ago and is never drank since. He denies any other recreational substance abuse. - Substance History Use: Uses substance without health or social issues: NONE Abuse: Recurrent use of substance despite neg consequences: NONE Dependence: Experiences withdrawal or developed tolerances: NONE - POLST Patient has POLST: Yes POLST Status: Full Code (But after discussing the POLST form from [facility], and what he wants out of life, he does NOT want to be resuscitated if he has no pulse or pressure. But before he signs a new POLST, he wants his daughter from [place] to be here when he signs it. He would still like treatment for illness even if it's surgery, ICU, pressors, blood transfusions, and short term of 6 weeks of tube feeds if necessary. But no chest compression, no intubation for cardiopulmonary arrest.) Meds/Allgy - Home Medications Home Medications: Ambulatory Orders Medication Instructions Recorded Confirmed Aspirin 325 mg PO QDAC 12/31/12 12/31/12 Oxycodone HCl/Acetaminophen 1 each PO Q6H PRN #20 tablet 11/26/17 [Percocet 5-325 mg Tablet] Duloxetine HCl 12/26/17 Furosemide 12/26/17 Morphine ER BID 12/26/17 Omeprazole [PriLOSEC] 12/26/17 Ondansetron [Zofran Odt] 12/26/17 Polyethylene Glycol 3350 [Miralax] 12/26/17 Potassium Chloride [Klor-Con M20] 12/26/17 Senna [Senokot] 12/26/17 Spironolactone 12/26/17 Tamsulosin HCl [Flomax] 12/26/17 traMADol [Ultram] 12/26/17 - Allergies Allergies/Adverse Reactions: Allergies Allergy/AdvReac Type Severity Reaction Status Date / Time No Known Drug Allergies Allergy Verified 12/26/17 18:15 Review of Systems - Constitutional Constitutional: reports: Fatigue, Malaise, Weakness, Poor appetite, Weight loss. denies: Fever, Chills, Diaphoresis, Night sweats, Weight gain - Eyes Eyes: denies: Pain, Irritation, Amaurosis, Blurred vision, Spots in vision, Field loss - Ears, Nose & Throat Ears, Nose & Throat: denies: Ear pain, Hearing loss, Hearing aids, Tinnitus, Vertigo, Nasal congestion, Postnasal drainage, Sore throat, Hoarseness - Cardiovascular Cariovascular: reports: Edema (Chronic leg edema treated with spironolactone and Lasix. He is not aware of the diagnosis of chronic congestive heart failure.). denies: Irregular heart rate, Palpitations, Chest pain, Syncope, Exertional dyspnea - Respiratory Respiratory: denies: Cough, Sputum production, Wheezing, Orthopnea, SOB at rest, SOB with exertion - Gastrointestinal Gastrointestinal: reports: Abdominal distention, Constipation, Nausea, Vomiting, Coffee grounds emesis (Maybe), Bloating, Poor appetite. denies: Abdominal pain, Diarrhea, Change in bowel habits, Rectal bleeding, Black stools, Bloody stools, Reflux/heartburn - Genitourinary Genitourinary: reports: Frequency, Urgency, Incontinence, Other (Hensley was placed in November 2017 with his first admission to [facility] because of urgency, hesitancy,). denies: Dysuria, Flank pain, Nocturia, Urethral discharge - Musculoskeletal Musculoskeletal: reports: Back pain, Stiffness, Limited range of motion (Legs are weak with a right foot drop). denies: Muscle pain, Muscle aches, Gout, Joint pain - Integumentary Integumentary: denies: Rash, Pruritis, Lesions, Dryness - Neurological Neurological: reports: General weakness, Focal weakness (Right foot drop), Memory problems (Cognitive deficit of aging). denies: Headache, Dizziness, Numbness, Pre-existing deficit, Abnormal gait, Seizures, Incoordination, Slurred speech - Psychiatric Psychiatric: reports: Depression, Anxiety. denies: Suicidal, Delusions, Hallucinations - Endocrine Endocrine: denies: Polyuria, Polydypsia, Polyphagia - Hematologic/Lymphatic Hematologic/Lymphatic: denies: Anemia, Bruising, Petechiae Exam - Vital Signs Reviewed Vital Signs: Yes Vital Signs: Vital Signs x48h Temp Pulse Pulse Resp BP BP Pulse Ox 12/26/17 20:51 36.7 C 95 14 118/68 93 12/26/17 18:52 87 13 106/54 L 100 12/26/17 17:09 96 20 114/72 100 12/26/17 15:33 37.2 C 111 H 12 123/74 96 - Physical Exam General Appearance: positive: No acute distress, Alert, Other (Tall lanky white male who occasionally grimaces with discomfort (not pain) and uses his arms to grab onto the bed rail roll himself over, reposition himself to be comfortable (without any assist). is at the bedside.) Eyes Bilateral: positive: PERRL, EOMI ENT: positive: Dry mucous membranes Neck: positive: No JVD. negative: Stiff neck, Carotid bruit Respiratory: positive: Chest non-tender, Other (Dull lung bases bilaterally). negative: Wheezes, Rales, Rhonchi Cardiovascular: positive: Regular rate & rhythm, Systolic murmur. negative: Gallop/S4, Friction rub Peripheral Pulses: positive: 1+ Abdomen: positive: Other (Diffusely and softly distended. Not tympanitic. Mild generalized aching but nothing severe. No rebound, no guarding. He is umbilical hernia is easily reducible.) Skin: positive: Warm, Dry Extremities: positive: Non-tender, Pedal edema Neurologic/Psychiatric: positive: Oriented x3, CN's nml (2-12), Weakness (Generalized). negative: Motor nml (Both of his legs cannot be lifted off the bed. He could do it 2 days ago. He has almost complete loss of ability to plantar and dorsiflex the right foot. When he is laying flat on the bed, his left foot can plantar and dorsiflex just fine.), Facial droop, Slurred/abnml speech Conclusion/Plan - Problem List (1) Adynamic ileus Conclusion/Plan: Although the emergency room physician feels the patient has a possible partial small bowel obstruction, I think this patient has ileus from a combination of factors. First of all, he has been placed on long-acting opioids as well as short acting opioids for over a month. Second of all, he has a urinary tract infection, and atelectasis versus incipient pneumonia. He does have an elevated white cell count but does not have a fever. this has resulted ileus with nausea and vomitting. Plan Acute inpatient admission Attestation that the patient will be admitted less than 96 hours No NG tube at this time. While he is having nausea, no emesis since being in the emergency room. He has also had 2 bowel movements. If he does start having emesis will place NG. Expectant improvement with medical management and treatment of symptoms. No surgery consult at this time. However if fever develops or white cell count worsens, will consult. KUB in a.m. to assess partially dilated loops of bowel (2) UTI (urinary tract infection) Conclusion/Plan: Or chronic indwelling Hensley colonization. Plan: Switch out Hensley to new Hensley Urine submitted for culture Treat with IV antibiotics and adjust antibiotics on the basis of identification and sensitivities of the bacteria grown Qualifiers: Urinary tract infection type: acute cystitis Hematuria presence: with hematuria Qualified Code(s): N30.01 - Acute cystitis with hematuria (3) Atelectasis of both lungs Conclusion/Plan: Or early incipient pneumonia. He states that he has been using his incentive spirometry at the [facility]. We will reorder it for use here. He is started on empiric antibiotic therapy for the urinary tract infection as well as possible pneumonia in the form of cefepime and vancomycin. I would usually use Zosyn and vancomycin. However, there is been recent statements in the literature the combination Zosyn and vancomycin increases the risk of kidney injury. (4) Weakness Conclusion/Plan: Generalized weakness in a gentleman who has lost quite a bit of weight over the last year, has suffered compression fractures, back surgery, and most recently ileus over the last day or 2. While he was improving with physical therapy at the [facility], he appears to have had a setback over the last 24 hours. Plan: Hopefully get him out of bed to sit in a chair tomorrow morning. Let nursing know that we expect to see him sitting up in his chair for breakfast. Resume physical therapy while here. is a little alarmed because he was needing so much assist the day before he came in, but we will evaluate, and use a lift as needed. (5) Obstructive uropathy Conclusion/Plan: And his subsequent chronic kidney disease state of stage III. He has had a retroperitoneal ultrasound in the past. That was done October 26, 2017 which confirmed dilated ureters. Of note, once the Hensley was placed his creatinine came down to 0.8 and GFR is now normal. he is felt to have BPH with LUTS. As stated above for urinary tract infection, a new Hensley catheter will be replacing his chronic indwelling one. Consider bladder training and continue flomax. It would be better for him if the hensley could come out. (6) Chronic congestive heart failure Conclusion/Plan: This is a diagnosis placed in his past medical history with his [facility] admission. However the says that the patient has "only pedal edema" and that he does not have congestive heart failure. She also states that the patient was seen by Dr. Gentile 3 years ago for chronic atrial fibrillation but not for congestive heart failure. In looking at his past medical records through the [facility] network, I am not seeing an echocardiogram or a notes from a visit. [facility] does not have an echocardiogram. Will call [facility] cardiology tomorrow and see if we can get those old records. Qualifiers: Heart failure type: unspecified Qualified Code(s): I50.9 - Heart failure, unspecified (7) Chronic atrial fibrillation Conclusion/Plan: [id number] Score for atrial fibrillation stroke risk results in 3 points. A score of 2 or greater is "moderate high" risk and should otherwise be an anticoagulation candidate. The fact that he is not on any chronic anticoagulation, in spite of seeing a traffic rate clerk a few years ago, makes me wonder what the final decision was at that point in time. Again, obtaining his old records from Dr. Gentile will be helpful. (8) Status post laminectomy Conclusion/Plan: Surgery done 12/18/17. Plan: continue PT and OT. (9) Abnormal loss of weight Conclusion/Plan: His initial weight loss is attributed to deliberate dieting on his part. But then it went beyond that. He dropped from the 190 goal to the 170s when he started feeling with regards to his legs, increasing falls. I think a combination of spinal stenosis plus severe weight loss resulted in the weakness and falls. He describes a colonoscopy in the past that was negative. One must think of a neoplasm and you have unanticipated weight loss such as this gentleman is had. Or could his weight loss be simply because he was in so much pain from his back. Plan: CEA and PSA (10) Full code status Conclusion/Plan: per his POLST filled out at [facility]. After discussing the pulsed, going over line item by line on him, he realizes he does not want to be resuscitated if he does not have a pulse or pressure. But he would like everything done up until that point. He wants to be aggressively treated. He would like to fill out a POLST in front of his daughter. He wants to make sure that she, a nurse, understand his reasoning before he signs anything. As such he will remain full code until he knew POLST form can be filled out. - Lab Results Fish Bones: 12/26/17 16:32 12/26/17 16:32 - Diagnostic Imaging Results Diagnostic Imaging Results: positive: Final report reviewed - EKG Results EKG Interpreted Independently: No EKG Comparison: Old EKG unavailable EKG Findings: atrial fibrillation Core Measures - Anticipated LOS I expect patient to be DC'd or transferred within 96 hours.: Yes - DVT/VTE - Prophylaxis VTE/DVT Device ordered at admit?: Yes
[2017-12-26] MEDS ORDERED: WATER FOR INJECTION,STERILE 30 ML ONE ×2 (22:21→23:43)
[2017-12-26] MEDS: CEFEPIME 2 GM in SODIUM CHLORIDE 0.9% MINIBAG 100 ML IV SCH (22:38)
[2017-12-27] MEDS ORDERED: WATER FOR INJECTION,STERILE 40 ML ONE (00:23)
[2017-12-27] MEDS: VANCOMYCIN INJ 1.25 GM in SODIUM CHLORIDE 0.9% 250 ML IV SCH ×2 (00:59→11:35)
[2017-12-27] MEDS: SODIUM CHLORIDE FLUSH 0.9% 10 ML SYRINGE IVP SCH ×3 (01:05→18:19)
[2017-12-27] MEDS: MORPHINE 2 MG/ML CARPUJECT IVP PRN ×5 (01:58→17:05)
[2017-12-27] MEDS: SODIUM CHLORIDE 0.9% 1,000 ML IV SCH ×2 (06:36→18:39)
[2017-12-27 06:49] LABS: BASOPHILS % (AUTO) 0.2 %; EOSINOPHILS # (AUTO) 0.1 10^3/uL (0.0-0.7); EOSINOPHILS % (AUTO) 0.6 %; HGB - HEMOGLOBIN 10.7 g/dL (14.0-18.0); LYMPHOCYTES % (AUTO) 23.4 %; MEAN CORPUSCULAR HEMOGLOBIN 30.9 pg (27.0-31.0); MEAN CORPUSCULAR HGB CONC 33.8 g/dL (32.0-36.0); MEAN CORPUSCULAR VOLUME 91.6 fL (80.0-94.0); MEAN PLATELET VOLUME 6.8 fL (7.4-11.4); MONOCYTES # (AUTO) 0.9 10^3/uL (0.0-1.0); NEUTROPHILS # (AUTO) 12.1 10^3/uL (1.5-6.6); NEUTROPHILS % (AUTO) 70.8 %; PLT - PLATELET COUNT 463 10^3/uL (130-450); RED BLOOD COUNT 3.47 10^6/uL (4.70-6.10); RED CELL DISTRIBUTION WIDTH 14.1 % (12.0-15.0); WHITE BLOOD COUNT 17.1 x10^3/uL (4.8-10.8)
[2017-12-27 06:58] LABS: CREATININE 0.7 mg/dL (0.6-1.2)
[2017-12-27] MEDS: CEFEPIME 2 GM in SODIUM CHLORIDE 0.9% MINIBAG 100 ML IV SCH ×2 (08:56→21:07)
[2017-12-27] MEDS: ENOXAPARIN 40 MG/0.4 ML SYRINGE SUBQ SCH (08:57)
--- NOTE | 2017-12-27 10:36 | XRAY Report ---
Reason: follow sbo Procedure Date: 12/27/2017 Accession Number: [id number] / [id number] Procedure: XR - Abdomen 1 View X-Ray CPT Code: 58158 FULL RESULT: EXAM: ABDOMEN RADIOGRAPHY EXAM DATE: 12/27/2017 10:06 AM. CLINICAL HISTORY: Follow shortness of breath. COMPARISON: Abdomen/pelvis w/contrast 12/26/2017 5:40 PM. TECHNIQUE: 1 view. FINDINGS: Bowel Gas Pattern: While there are no air-fluid levels, there are numerous dilated loops of small bowel with a caliber of up to 3.9 cm. No definite large bowel gas is seen. Other: None. IMPRESSION: Bowel gas pattern compatible with obstruction. Please note that the known umbilical hernia is in a closed loop configuration and demonstrates the equivalent of interloop fluid and fecalization. Therefore, if this hernia is found to be nonreducible on physical examination, it should be intervened upon. CRITICAL RESULT: The findings were discussed with Dr. Mendoza in person on 12/27/2017 at 10:35 AM. NADIRA
[2017-12-27 10:52] LABS: PSA SCREEN (Z12.5) 3.02 ng/mL (0.000-2.000)
[2017-12-27 10:57] LABS: CEA - CARCINOEMBRYONIC ANTIGEN 1.8 ng/mL
[2017-12-27] MEDS ORDERED: ACETAMINOPHEN 325 MG TABLET PO PRN (12:53)
[2017-12-27] MEDS ORDERED: VANCOMYCIN INJ 1.25 GM in SODIUM CHLORIDE 0.9% 250 ML IV SCH (12:58)
[2017-12-27] MEDS: NICOTINE 21 MG PATCH TOP SCH (14:15)
[2017-12-27] MEDS: KETOROLAC 30 MG/ML VIAL IVP PRN ×2 (14:26→21:07)
[2017-12-27] MEDS: oxyCODONE 5 MG TABLET PO PRN ×2 (15:28→22:46)
--- NOTE | 2017-12-27 17:46 | PROVIDER PROGRESS NOTE ---
Assessment/Plan - Problem List (1) Adynamic ileus Assessment/Plan: Patient likely has ileus from a combination of factors. First of all, he has been placed on long-acting opioids as well as short acting opioids for over a month. Second of all, he has a urinary tract infection, and atelectasis versus incipient pneumonia. He does have an elevated white cell count but does not have a fever. this has resulted ileus with nausea and vomitting. Patient is improving He does have a large ventral hernia which the radiologist was concerned maybe incarcerated therefore surgery was consulted and they reduced the hernia but did not feel it was incarcerated and advised continued management for ileus Patients diet will be advanced to clear liquid Pain and nausea is controlled Encourage movement and wean down pain meds (2) UTI (urinary tract infection) Conclusion/Plan: Or chronic indwelling Hensley colonization. Hensley changed Patient on vancomycin and cefepime which will cover any organism that could cause UTI Awaiting urine cx Qualifiers: Urinary tract infection type: acute cystitis Hematuria presence: with hematuria Qualified Code(s): N30.01 - Acute cystitis with hematuria (3) Atelectasis of both lungs Conclusion/Plan: Or early incipient pneumonia. He states that he has been using his incentive spirometry at the [facility]. We will reorder it for use here. He is started on empiric antibiotic therapy for the urinary tract infection as well as possible pneumonia in the form of cefepime and vancomycin. (4) Weakness Conclusion/Plan: Generalized weakness in a gentleman who has lost quite a bit of weight over the last year, has suffered compression fractures, back surgery, and most recently ileus over the last day or 2. While he was improving with physical therapy at the [facility], he appears to have had a setback over the last 24 hours. Plan: Hopefully get him out of bed to sit in a chair daily Resume physical therapy while here. (5) Obstructive uropathy Conclusion/Plan: And his subsequent chronic kidney disease state of stage III. He has had a retroperitoneal ultrasound in the past. That was done October 26, 2017 which confirmed dilated ureters. Of note, once the Hensley was placed his creatinine came down to 0.8 and GFR is now normal. he is felt to have BPH with LUTS. As stated above for urinary tract infection, a new Hensley catheter was placed to replace his chronic indwelling one. Consider bladder training and continue flomax. It would be better for him if the hensley could come out. (6) Chronic congestive heart failure Conclusion/Plan: This is a diagnosis placed in his past medical history with his [facility] admission. However the says that the patient has "only pedal edema" and that he does not have congestive heart failure. She also states that the patient was seen by Dr. Gentile 3 years ago for chronic atrial fibrillation but not for congestive heart failure. In looking at his past medical records through the [facility] network, I am not seeing an echocardiogram or a notes from a visit. [facility] does not have an echocardiogram. Echo ordered and pending Qualifiers: Heart failure type: unspecified Qualified Code(s): I50.9 - Heart failure, unspecified (7) Chronic atrial fibrillation Conclusion/Plan: [id number] Score for atrial fibrillation stroke risk results in 3 points. A score of 2 or greater is "moderate high" risk and should otherwise be an anticoagulation candidate. No anticoagulation just ASA (8) Status post laminectomy Conclusion/Plan: Surgery done 12/18/17. Plan: continue PT and OT. (9) Abnormal loss of weight Conclusion/Plan: His initial weight loss is attributed to deliberate dieting on his part. But then it went beyond that. He dropped from the 190 goal to the 170s when he started feeling with regards to his legs, increasing falls. I think a combination of spinal stenosis plus severe weight loss resulted in the weakness and falls. He describes a colonoscopy in the past that was negative. One must think of a neoplasm and you have unanticipated weight loss such as this gentleman is had. Or could his weight loss be simply because he was in so much pain from his back. Plan: CEA and PSA (10) Full code status Conclusion/Plan: per [facility]. After discussing the pulsed, going over line item by line on him, he realizes he does not want to be resuscitated if he does not have a pulse or pressure. But he would like everything done up until that point. He wants to be aggressively treated. - Current Meds Current Meds: Current Medications Generic Name Dose Route Start Last Admin Trade Name Freq PRN Reason Stop Dose Admin Enoxaparin Sodium 40 mg 12/27/17 09:00 12/27/17 08:57 Lovenox SUBQ 40 mg DAILY YENI Administration Cefepime HCl 2 gm/ Sodium 100 mls @ 200 mls/hr 12/26/17 21:00 12/27/17 09:30 Chloride IV Infused BID YENI Infusion Sodium Chloride 1,000 mls @ 100 mls/hr 12/26/17 20:00 12/27/17 06:36 Normal Saline 0.9% IV 12/28/17 01:59 100 mls/hr .Q10H YENI Administration Ketorolac Tromethamine 30 mg 12/27/17 12:54 12/27/17 14:26 Toradol Inj (30mg) IVP 01/01/18 12:53 30 mg Q6HR PRN Administration PAIN Morphine Sulfate 2 mg 12/26/17 19:14 12/27/17 17:05 Morphine (Carpuject) IVP 2 mg Q2HR PRN Administration Pain 8 to 10 Nicotine 1 patch 12/27/17 14:10 12/27/17 14:15 Nicoderm TOP 1 patch DAILY YENI Administration Ondansetron HCl 4 mg 12/26/17 19:14 12/27/17 12:57 Zofran Inj IVP 4 mg Q6HR PRN Administration Nausea / Vomiting Oxycodone HCl 5 mg 12/27/17 12:54 12/27/17 15:28 Roxicodone PO 5 mg Q4HR PRN Administration PAIN Sodium Chloride 10 ml 12/27/17 01:00 12/27/17 09:00 Normal Saline Flush 0.9% IVP Not Given 0100,0900,1700 YENI Sodium Chloride 10 ml 12/26/17 19:14 12/27/17 01:59 Normal Saline Flush 0.9% IVP 10 ml PRN PRN Administration NEEDED PER PROVIDER ORDERS - Lab Result Lab results reviewed: Yes Fish Bone Diagrams: 12/27/17 05:50 12/27/17 05:50 - Diagnostic Imaging Results Diagnostic Imaging Results: Final report reviewed - Additional Planning Condition/Complexity: Improved My Orders: My Active Orders 12/27/17 12:53 Acetaminophen [Tylenol] 650 mg PO Q4HR PRN 12/27/17 12:54 Ketorolac Inj (30Mg) [Toradol Inj (30Mg)] 30 mg IVP Q6HR PRN oxyCODONE [Roxicodone] 5 mg PO Q4HR PRN 12/27/17 14:10 Nicotine 21 mg Patch [Nicoderm] 1 patch TOP DAILY 12/27/17 Dinner Clear Liquid Diet [DIET] 12/28/17 11:30 VANCOMYCIN TROUGH [CHEM] Timed Consult/Specialty: PT, Surgery Plan Discussed with:: Patient Time Spent: 31-60 minutes Subjective - Subjective Patient Reports: Feeling Better, Abdominal Pain (Improving), Nausea (Improving), Other (Patient had 2 BMs yesterday) Nursing Reports: No Complaints Objective Vital Signs: Vital Signs - 24 hr 12/26/17 12/26/17 12/27/17 18:52 20:51 00:24 Temperature 36.7 C 37.0 C Heart Rate 87 Heart Rate [ 95 98 Brachial] Heart Rate [ Supine] Respiratory 13 14 16 Rate Blood Pressure 106/54 L Blood Pressure 118/68 128/70 [Left Brachial artery] Blood Pressure [Supine] O2 Saturation 100 93 92 12/27/17 12/27/17 12/27/17 09:21 11:25 13:59 Temperature 37 C 36.7 C Heart Rate 98 Heart Rate [ 95 Brachial] Heart Rate [ 79 Supine] Respiratory 18 18 Rate Blood Pressure Blood Pressure 122/60 [Left Brachial artery] Blood Pressure 113/53 L [Supine] O2 Saturation 98 91 L 12/27/17 15:20 Temperature 37.1 C Heart Rate Heart Rate [ 88 Brachial] Heart Rate [ Supine] Respiratory 14 Rate Blood Pressure Blood Pressure 116/50 L [Left Brachial artery] Blood Pressure [Supine] O2 Saturation 96 Oxygen O2 Source Room air I&O (Last 24 Hrs): Intake and Output Totals x24h 12/25/17 12/26/17 12/27/17 23:59 23:59 23:59 Intake Total 1750 1493.333 Output Total 750 1100 Balance 1000 393.333 General: Alert, Oriented x3, Cooperative, No acute distress HEENT: Atraumatic, PERRLA, EOMI, Other (Dry mucus membranes) Neck: Supple, No JVD, No thyromegaly, +2 carotid pulse wo bruit, No LAD Lymphatic: no adenopathy Neuro: Alert, Non Focal, CN 2-12 Grossly Intact, Oriented Times 3 Cardiovascular: No murmurs, Other (Irregularly irregular) Respiratory: Chest non-tender, No respiratory distress, Breath sounds nml Abdomen: Other (Distended abd with minimal tenderness, hernia has been reduced) Extremities: No clubbing, No cyanosis, No edema, Normal pulses Skin: No rashes, No breakdown - Results Results: Laboratory Results WBC 17.1 x10^3/uL (4.8-10.8) H 12/27/17 05:50 RBC 3.47 10^6/uL (4.70-6.10) L 12/27/17 05:50 Hgb 10.7 g/dL (14.0-18.0) L 12/27/17 05:50 Hct 31.8 % (42.0-52.0) L 12/27/17 05:50 MCV 91.6 fL (80.0-94.0) 12/27/17 05:50 MCH 30.9 pg (27.0-31.0) 12/27/17 05:50 MCHC 33.8 g/dL (32.0-36.0) 12/27/17 05:50 RDW 14.1 % (12.0-15.0) 12/27/17 05:50 Plt Count 463 10^3/uL (130-450) H 12/27/17 05:50 MPV 6.8 fL (7.4-11.4) L 12/27/17 05:50 Neut # (Auto) 12.1 10^3/uL (1.5-6.6) H 12/27/17 05:50 Lymph # (Auto) 4.0 10^3/uL (1.5-3.5) H 12/27/17 05:50 [place] # (Auto) 0.9 10^3/uL (0.0-1.0) 12/27/17 05:50 Eos # (Auto) 0.1 10^3/uL (0.0-0.7) 12/27/17 05:50 Baso # (Auto) 0.0 10^3/uL (0.0-0.1) 12/27/17 05:50 Absolute Nucleated RBC 0.01 x10^3/uL 12/27/17 05:50 Band Neuts % (Manual) Not Reportable 12/26/17 16:32 Abnorm Lymph % (Manual) Not Reportable 12/26/17 16:32 Nucleated RBC % 0.0 /100WBC 12/27/17 05:50 Neutrophils # (Manual) Not Reportable 12/26/17 16:32 Lymphocytes # (Manual) Not Reportable 12/26/17 16:32 Monocytes # (Manual) Not Reportable 12/26/17 16:32 Eosinophils # (Manual) Not Reportable 12/26/17 16:32 Basophils # (Manual) Not Reportable 12/26/17 16:32 Differential Comment MANUAL=AUTO DIFF 12/26/17 16:32 Manual Slide Review Indicated 12/26/17 16:32 Platelet Estimate INCREASED (>450,000) (NORMAL) 12/26/17 16:32 Platelet Morphology NORMAL APPEARANCE (NORMAL) 12/26/17 16:32 RBC Morph Micro Appear NORMAL APPEARANCE (NORMAL) 12/26/17 16:32 PT 12.1 secs (9.9-12.6) 12/26/17 16:32 INR 1.1 (0.8-1.2) 12/26/17 16:32 APTT 27.4 secs (24.9-33.3) 12/26/17 16:32 Sodium 135 mmol/L (135-145) 12/27/17 05:50 Potassium 3.9 mmol/L (3.5-5.0) 12/27/17 05:50 Chloride 104 mmol/L (101-111) 12/27/17 05:50 Carbon Dioxide 24 mmol/L (21-32) 12/27/17 05:50 Anion Gap 7.0 (6-13) 12/27/17 05:50 BUN 10 mg/dL (6-20) 12/27/17 05:50 Creatinine 0.7 mg/dL (0.6-1.2) 12/27/17 05:50 Estimated GFR (MDRD) 109 (>89) 12/27/17 05:50 Glucose 101 mg/dL (70-100) H 12/27/17 05:50 Lactic Acid 1.3 mmol/L (0.5-2.2) 12/26/17 17:55 Calcium 8.0 mg/dL (8.5-10.3) L 12/27/17 05:50 Total Bilirubin 0.9 mg/dL (0.2-1.0) 12/26/17 16:32 AST 21 IU/L (10-42) 12/26/17 16:32 ALT 15 IU/L (10-60) 12/26/17 16:32 Alkaline Phosphatase 111 IU/L (42-121) 12/26/17 16:32 Troponin I < 0.04 ng/mL (<0.49) 12/26/17 16:32 Total Protein 6.4 g/dL (6.7-8.2) L 12/26/17 16:32 Albumin 3.1 g/dL (3.2-5.5) L 12/26/17 16:32 Globulin 3.3 g/dL (2.1-4.2) 12/26/17 16:32 Albumin/Globulin Ratio 0.9 (1.0-2.2) L 12/26/17 16:32 Lipase 24 U/L (22-51) 12/26/17 16:32 Carcinoembryonic Ag 1.8 ng/mL 12/27/17 09:39 PSA Screen 3.020 ng/mL (0.000-2.000) H 12/27/17 09:39 Urine Color YELLOW 12/26/17 16:32 Urine Clarity CLOUDY (CLEAR) 12/26/17 16:32 Urine pH 8.0 PH (5.0-7.5) H 12/26/17 16:32 Ur Specific [place] 1.015 (1.002-1.030) 12/26/17 16:32 Urine Protein 30 mg/dL (NEGATIVE) H 12/26/17 16:32 Urine Glucose (UA) NEGATIVE mg/dL (NEGATIVE) 12/26/17 16:32 Urine Ketones 15 mg/dL (NEGATIVE) H 12/26/17 16:32 Urine Occult Blood SMALL (NEGATIVE) H 12/26/17 16:32 Urine Nitrite NEGATIVE (NEGATIVE) 12/26/17 16:32 Urine Bilirubin NEGATIVE (NEGATIVE) 12/26/17 16:32 Urine Urobilinogen 1 (NORMAL) E.U./dL (NORMAL) 12/26/17 16:32 Ur Leukocyte Esterase MODERATE (NEGATIVE) H 12/26/17 16:32 Urine RBC 6-10 /HPF (0-5) H 12/26/17 16:32 Urine WBC >25 /HPF (0-3) H 12/26/17 16:32 Urine WBC Clumps PRESENT 12/26/17 16:32 Ur Squamous Epith Cells NONE SEEN (<= Few) 12/26/17 16:32 Urine Bacteria Moderate /HPF (None Seen) H 12/26/17 16:32 Ur Microscopic Review INDICATED 12/26/17 16:32 Urine Culture Comments INDICATED 12/26/17 16:32 Blood Type AB POSITIVE 12/26/17 16:32 Antibody Screen NEGATIVE 12/26/17 16:32 - Procedures Procedures: Procedures CATARAC PHACOEMULS/ASPIR (02/12/13) INSERT LENS AT CATAR EXT (02/12/13) ABX Reporting Has patient been on IV antibiotics over the past 48 hours?: No Current Medications - Current Medications Current Medications: Active Medications Generic Name Dose Route Start Last Admin Trade Name Freq PRN Reason Stop Dose Admin Acetaminophen 650 mg 12/27/17 12:53 Tylenol PO Q4HR PRN Pain or Fever > 38C (100.4F) Duloxetine HCl 20 mg 12/28/17 09:00 Cymbalta PO DAILY YEIN Enoxaparin Sodium 40 mg 12/27/17 09:00 12/27/17 08:57 Lovenox SUBQ 40 mg DAILY YENI Administration Cefepime HCl 2 gm/ Sodium 100 mls @ 200 mls/hr 12/26/17 21:00 12/27/17 09:30 Chloride IV Infused BID YENI Infusion Sodium Chloride 1,000 mls @ 100 mls/hr 12/26/17 20:00 12/27/17 06:36 Normal Saline 0.9% IV 12/28/17 01:59 100 mls/hr .Q10H YENI Administration Vancomycin HCl 1.25 gm/ Sodium 250 mls @ 167 mls/hr 12/27/17 12:58 Chloride IV 0000,1200 YENI Ketorolac Tromethamine 30 mg 12/27/17 12:54 12/27/17 14:26 Toradol Inj (30mg) IVP 01/01/18 12:53 30 mg Q6HR PRN Administration PAIN Morphine Sulfate 2 mg 12/26/17 19:14 12/27/17 17:05 Morphine (Carpuject) IVP 2 mg Q2HR PRN Administration Pain 8 to 10 Nicotine 1 patch 12/27/17 14:10 12/27/17 14:15 Nicoderm TOP 1 patch DAILY YENI Administration Ondansetron HCl 4 mg 12/26/17 19:14 12/27/17 12:57 Zofran Inj IVP 4 mg Q6HR PRN Administration Nausea / Vomiting Oxycodone HCl 5 mg 12/27/17 12:54 12/27/17 15:28 Roxicodone PO 5 mg Q4HR PRN Administration PAIN Prochlorperazine Edisylate 10 mg 12/26/17 19:14 Compazine Inj IVP Q6HR PRN Nausea / Vomiting Sodium Chloride 10 ml 12/27/17 01:00 12/27/17 09:00 Normal Saline Flush 0.9% IVP Not Given 0100,0900,1700 YENI Sodium Chloride 10 ml 12/26/17 19:14 12/27/17 01:59 Normal Saline Flush 0.9% IVP 10 ml PRN PRN Administration NEEDED PER PROVIDER ORDERS Aspirin 325 mg PO QDAC 12/31/12 Duloxetine HCl 20 mg PO DAILY 12/26/17 Furosemide 40 mg PO DAILY 12/26/17 Morphine ER 15 mg PO BID 12/26/17 Omeprazole [PriLOSEC] 20 mg PO DAILY 12/26/17 Ondansetron [Zofran Odt] 8 mg PO TID PRN 12/26/17 Polyethylene Glycol 3350 [Miralax] 17 gm PO DAILY 12/26/17 Potassium Chloride [Klor-Con M20] 20 meq PO DAILY 12/26/17 Senna [Senokot] 8.6 mg PO BID PRN 12/26/17 Spironolactone 50 mg PO BID 12/26/17 Tamsulosin HCl [Flomax] 0.8 mg PO DAILY 12/26/17 traMADol [Ultram] 50 mg PO QID PRN 12/26/17
--- NOTE | 2017-12-27 19:25 | CONSULTATION NOTE ---
Referring Provider Name of Referring Provider:: Daniel Mendoza Chief Complaint - Chief Complaint Chief Complaint: ileus vs SBO History of Present Illness - History of Present Illness HPI Comment/Other: This is a very pleasant 82 year old male who recently underwent extensive spinal surgery and was recovering at [facility] when he developed abdominal pain and vomiting and was transferred to [facility] yesterday. He has been on large doses of narcotics for pain control post operatively, and has not been able to able to ambulate without assistance since surgery. On evaluation in the ER a CT was performed which demonstrated dilated loops of bowel, with an associated umbilical hernia containing small bowel but with dilation proximal and distal to the herniated bowel. He was admitted to the medical service. He has been NPO on IV fluids. He underwent an abdominal xray today and the radiological read was a possible "closed loop obstruction". A surgical consultation was obtained. Upon my evaluation of the patient he is resting in a chair comfortably with minimal abdominal pain. He had a bowel movement this am and also passed flatus. History - Past Medical History Cardiovascular: reports: Hypertension, High cholesterol, Atrial fibrillation Respiratory: reports: COPD (listed in PMH for [facility] but he denies) Neuro: reports: Other (mild cognitive deficit of aging) Endocrine/Autoimmune: reports: None GI: reports: Colon polyps, Other (chronic enlarging umbilical hernia) : reports: Benign prostate hypertrophy, Retention, Frequency HEENT: reports: Other Psych: reports: Depression, Anxiety Musculoskeletal: reports: Osteoarthritis, Osteoporosis, Other Derm: reports: None MRSA Hx?: No - Past Surgical History General: reports: Colonoscopy Ortho: reports: Spine surgery, Other HEENT: reports: Cataracts (removed 2012, with IOL) - Family & Social History Family History Comment/Other: Mom at age 52 of an embolic brain stroke. Dad at age 54 of an enlarged heart. No siblings. 2 daughters. One lives in [place] and is an RN in the clinic. The other daughter lives near [place] and is a retiring police captain precinct. He describes her having as some type of congenital anomaly near the subclavian artery requiring surgery. Living arrangement: [facility] (Since November 27, 2017. Plan is for him to return to home to live with his .) Living Situation: With spouse/s.o. Social History Notes: He was born in [place] and went on to then live in [place]. While in [place] he ended up learning how to fly and join the [employer]. 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 He ended up living in [facility] and got tired of the congestion and came to [facility] 15 years ago. He has been to his second for 26 years. While he is always had back pain, he has been independent. Able to do his activities of daily living. It was not until the last year that he has been steadily losing ground with the weight loss, went from using a cane to then a walker by October and November 2017. When he started falling in November 2017 he ended up living in a intermediate facility. The plan is for him to go home after he gets enough strength. He started smoking at the age of 16 and quit before he met his second . She thinks he stopped smoking 1 pack per day around 1990. He did smoke a pipe for a couple of years. He also had a problem with alcohol abuse. But when it started affecting his job, and the possibility of losing his pension, he went to a "[place]" 20 years ago and is never drank since. He denies any other recreational substance abuse. - Substance History Use: Uses substance without health or social issues: NONE Abuse: Recurrent use of substance despite neg consequences: NONE Dependence: Experiences withdrawal or developed tolerances: NONE - POLST Patient has POLST: Yes POLST Status: Full Code (But after discussing the POLST form from [facility], and what he wants out of life, he does NOT want to be resuscitated if he has no pulse or pressure. But before he signs a new POLST, he wants his daughter from [place] to be here when he signs it. He would still like treatment for illness even if it's surgery, ICU, pressors, blood transfusions, and short term of 6 weeks of tube feeds if necessary. But no chest compression, no intubation for ca rdiopulmonary arrest.) Meds/Allgy - Home Medications Home Medications: Ambulatory Orders Medication Instructions Recorded Confirmed Aspirin 325 mg PO QDAC 12/31/12 12/27/17 Oxycodone HCl/Acetaminophen 1 each PO Q6H PRN #20 tablet 11/26/17 12/27/17 [Percocet 5-325 mg Tablet] Duloxetine HCl 20 mg PO DAILY 12/26/17 12/27/17 Furosemide 40 mg PO DAILY 12/26/17 12/27/17 Morphine ER 15 mg PO BID 12/26/17 12/27/17 Omeprazole [PriLOSEC] 20 mg PO DAILY 12/26/17 12/27/17 Ondansetron [Zofran Odt] 8 mg PO TID PRN 12/26/17 12/27/17 Polyethylene Glycol 3350 [Miralax] 17 gm PO DAILY 12/26/17 12/27/17 Potassium Chloride [Klor-Con M20] 20 meq PO DAILY 12/26/17 12/27/17 Senna [Senokot] 8.6 mg PO BID PRN 12/26/17 12/27/17 Spironolactone 50 mg PO BID 12/26/17 12/27/17 Tamsulosin HCl [Flomax] 0.8 mg PO DAILY 12/26/17 12/27/17 traMADol [Ultram] 50 mg PO QID PRN 12/26/17 12/27/17 - Allergies Allergies/Adverse Reactions: Allergies Allergy/AdvReac Type Severity Reaction Status Date / Time No Known Drug Allergies Allergy Verified 12/26/17 18:15 Exam - Vital Signs Vital Signs: Vital Signs x48h Temp Pulse Pulse Resp BP BP Pulse Ox 12/27/17 15:20 37.1 C 88 14 116/50 L 96 12/27/17 13:59 36.7 C 95 18 122/60 91 L 12/27/17 11:25 79 113/53 L - Physical Exam General Appearance: positive: No acute distress Respiratory: positive: No respiratory distress Abdomen: positive: Other (softly distended with a palpable umbilical hernia with bowel contents which was easily reducible with pressure.) Neurologic/Psychiatric: positive: Oriented x3 Conclusion/Plan - Diagnosis Diagnosis: Ileus - Plan Plan: Mr. Barbosa has an easily reducible umbilical hernia containing bowel in the setting of an ileus. I recommend treatment for his ileus with reduction, or preferably, discontinuation of narcotics with substitution of other analgesics, stool softeners, laxatives and hydration. If his umbilical hernia becomes irreducible please re-consult surgery. If the hernia remains easily reducible it will not interfere with passage of enteric contents and does not require repair. - Lab Results Lab results reviewed: Yes Fish Bones: 12/27/17 05:50 12/27/17 05:50
--- NOTE | 2017-12-27 22:15 | PROVIDER PROGRESS NOTE ---
Hospitalist Cross-cover Note - Cross-Cover Note Cross-Cover Note: The patient has been developing a rash over the course of the day. The night nurses asked me to come examine him because it may be getting a little worse. He is on cefepime and vancomycin. Over the course of the day he has been seen by general surgery and he has an easily reducible umbilical hernia. He has had more bowel movements. In general surgery feels that it is ileus not bowel obstruction. He tells me he just feels "rough". He says he kind of aches all over. He is tired. But otherwise a nausea and vomiting have gone. He has no chest pain, abdominal pain. Urine is a little darker. He denies having any itching or pruritus of any kind with this rash. Temperature is 37.1. Pulse is 88. Blood pressure 116/50. Respirations 14. 96% on room air. On general examination he is more alert than last night. Temperature is 37.1, pulse is 88, blood pressure 116/50, respirations 14 and unlabored, 96% on room air. Tells us that "I have the good life here, why cannot I just stay here". He laughs as he says that. Cheeks are flushed tonight. They were not last night. Lungs still have dull bases but no hypoxia No labored respiration, comfortable Abdomen continues to have the easily reducible umbilical hernia, not distended, not tender and normal bowel sounds neck His chest wall, tops of his arms and down into his upper abdominal skin is covered with a flat, raised, confluent, blanching, morbilliform rash compatible with a drug rash. It is not involving his mucosa such as his lips or the soles and palms of his feet Assessment/plan: I think it is a drug rash. Most likely cause will be the cefepime because of the cephalosporin. This is not red man syndrome so I do not suspect vancomycin. Antibiotics are being used to treat possible hospital-acquired pneumonia versus atelectasis, UTI, but no bowel obstruction. Changed to Levaquin and vancomycin to cover lungs and urine. Once his cultures come back he may be able to come off the vancomycin. Give Benadryl p.o. as needed itching and give 1 dose of Kenalog IM Continue to monitor to make sure rash is not worsening or patient is developing more symptoms such as wheezing or peeling of the rash
[2017-12-27] MEDS ORDERED: TRIAMCINOLONE IM ONE (22:21)
[2017-12-27] MEDS ORDERED: diphenhydrAMINE 25 MG CAPSULE PO PRN (22:21)
[2017-12-27] MEDS ORDERED: levoFLOXacin 750 MG/150 ML 750 MG/150 ML BAG IV SCH (23:00)
[2017-12-28] MEDS ORDERED: methylPREDNISolone SUCCINATE 40 MG/ML VIAL IVP STA (00:07)
[2017-12-28] MEDS: SODIUM CHLORIDE FLUSH 0.9% 10 ML SYRINGE IVP SCH ×4 (00:36→16:58)
[2017-12-28] MEDS: MORPHINE 2 MG/ML CARPUJECT IVP PRN (00:58)
[2017-12-28] MEDS: oxyCODONE 5 MG TABLET PO PRN ×2 (04:32→09:13)
[2017-12-28 06:14] LABS: EOSINOPHILS % (AUTO) 0.2 %; LYMPHOCYTES # (AUTO) 3.2 10^3/uL (1.5-3.5); LYMPHOCYTES % (AUTO) 25.5 %; MEAN CORPUSCULAR HEMOGLOBIN 31.1 pg (27.0-31.0); MEAN CORPUSCULAR HGB CONC 34.2 g/dL (32.0-36.0); MEAN PLATELET VOLUME 6.3 fL (7.4-11.4); MONOCYTES # (AUTO) 0.1 10^3/uL (0.0-1.0); MONOCYTES % (AUTO) 0.7 %; NEUTROPHILS # (AUTO) 9.4 10^3/uL (1.5-6.6); NEUTROPHILS % (AUTO) 73.6 %; PLT - PLATELET COUNT 414 10^3/uL (130-450); RED BLOOD COUNT 3.22 10^6/uL (4.70-6.10); RED CELL DISTRIBUTION WIDTH 14.1 % (12.0-15.0); WHITE BLOOD COUNT 12.7 x10^3/uL (4.8-10.8)
[2017-12-28 06:26] LABS: CALCIUM 7.5 mg/dL (8.5-10.3); CREATININE 0.7 mg/dL (0.6-1.2)
[2017-12-28] MEDS: KETOROLAC 30 MG/ML VIAL IVP PRN ×2 (06:30→13:21)
--- NOTE | 2017-12-28 07:34 | XRAY Report ---
Reason: follow sbo Procedure Date: 12/28/2017 Accession Number: [id number] / [id number] Procedure: XR - Abdomen 1 View X-Ray CPT Code: 99179 FULL RESULT: EXAM: ABDOMEN RADIOGRAPHY EXAM DATE: 12/28/2017 06:13 AM. CLINICAL HISTORY: Follow sbo. COMPARISON: 12/26/2017. TECHNIQUE: 1 view. FINDINGS: Bowel Gas Pattern: Mildly dilated small bowel loops measuring to 2.7 cm similar. There is air in colon. Other: Post vertebroplasty. Degenerative changes spine, hips. Right sided infiltrate. Bilateral pleural effusions IMPRESSION: 1. Dilated small bowel loops similar. RADIA
[2017-12-28] MEDS: DOCUSATE SODIUM 250 MG CAPSULE PO SCH (08:07)
[2017-12-28] MEDS: NICOTINE 21 MG PATCH TOP SCH (08:07)
[2017-12-28] MEDS: DULoxetine 20 MG CAPSULE PO SCH (08:07)
[2017-12-28] MEDS: ENOXAPARIN 40 MG/0.4 ML SYRINGE SUBQ SCH (08:10)
[2017-12-28] MEDS ORDERED: VANCOMYCIN INJ 1.25 GM in SODIUM CHLORIDE 0.9% 250 ML IV SCH (12:00)
--- NOTE | 2017-12-28 12:35 | PROVIDER PROGRESS NOTE ---
Assessment/Plan - Problem List (1) Adynamic ileus Assessment/Plan: Patient likely has ileus from a combination of factors. First of all, he has been placed on long-acting opioids as well as short acting opioids for over a month. Second of all, he has a urinary tract infection, and atelectasis versus incipient pneumonia. He does have an elevated white cell count but does not have a fever. this has resulted ileus with nausea and vomitting. He does have a large ventral hernia which the radiologist was concerned maybe incarcerated therefore surgery was consulted and they reduced the hernia but did not feel it was incarcerated and advised continued management for ileus Patients diet will be advanced to full liquid if he tolerates then will advance to regular diet tonight Pain and nausea is controlled Encourage movement and wean down pain meds Patient continues to improve (2) UTI (urinary tract infection) Conclusion/Plan: Or chronic indwelling Hensley colonization. Hensley changed Urine cx grew ESBL producing klebsiella which is susceptible to levaquin Will place on PO levaquin if patients WBC still improving and clinically continues to improve then discharge tomorrow Patient is improving with decreasing WBC and no fevers Qualifiers: Urinary tract infection type: acute cystitis Hematuria presence: with hematuria Qualified Code(s): N30.01 - Acute cystitis with hematuria (3) Atelectasis of both lungs Conclusion/Plan: Or early incipient pneumonia. He states that he has been using his incentive spirometry at the [facility]. We will reorder it for use here. He was started on empiric antibiotic therapy for the urinary tract infection as well as possible pneumonia in the form of cefepime and vancomycin. Patient had a drug reaction rash last night and cefepime was stopped. Today patient grew ESBL producing klebsiella on urine cx and vanco also stopped. Patient will continue levaquin PO. He is not hypoxic or febrile and WBC is improving. (4) Weakness Conclusion/Plan: Generalized weakness in a gentleman who has lost quite a bit of weight over the last year, has suffered compression fractures, back surgery, and most recently ileus over the last day or 2. While he was improving with physical therapy at the [facility], he appears to have had a setback over the last 24 hours. Plan: PT daily [facility] (5) Obstructive uropathy Conclusion/Plan: And his subsequent chronic kidney disease state of stage III. He has had a retroperitoneal ultrasound in the past. That was done October 26, 2017 which confirmed dilated ureters. Of note, once the Hensley was placed his creatinine came down to 0.8 and GFR is now normal. he is felt to have BPH with LUTS. As stated above for urinary tract infection, a new Hensley catheter was placed to replace his chronic indwelling one. Continue flomax. It would be better for him if the hensley could come out. (6) Chronic congestive heart failure Conclusion/Plan: This is a diagnosis placed in his past medical history with his [facility] admission. However the says that the patient has "only pedal edema" and that he does not have congestive heart failure. She also states that the p ricki was seen by Dr. Gentile 3 years ago for chronic atrial fibrillation but not for congestive heart failure. In looking at his past medical records through the [facility] network, I am not seeing an echocardiogram or a notes from a visit. [facility] does not have an echocardiogram. Echo ordered and pending Qualifiers: Heart failure type: unspecified Qualified Code(s): I50.9 - Heart failure, unspecified (7) Chronic atrial fibrillation Conclusion/Plan: [id number] Score for atrial fibrillation stroke risk results in 3 points. A score of 2 or greater is "moderate high" risk and should otherwise be an anticoagulation candidate. No anticoagulation just ASA (8) Status post laminectomy Conclusion/Plan: Surgery done 12/18/17. Plan: continue PT and OT. (9) Abnormal loss of weight Conclusion/Plan: His initial weight loss is attributed to deliberate dieting on his part. But then it went beyond that. He dropped from the 190 goal to the 170s when he started feeling with regards to his legs, increasing falls. I think a combination of spinal stenosis plus severe weight loss resulted in the weakness and falls. He describes a colonoscopy in the past that was negative. One must think of a neoplasm and you have unanticipated weight loss such as this gentleman is had. Or could his weight loss be simply because he was in so much pain from his back. Plan: CEA negative PSA mildly elevated will need to be followed up as outpatient and in setting of UTI with BPH could be elevated (10) Full code status Conclusion/Plan: per his POLST filled out at [facility]. After discussing the pulsed, going over line item by line on him, he realizes he does not want to be resuscitated if he does not have a pulse or pressure. But he would like everything done up until that point. He wants to be aggressively treated. - Current Meds Current Meds: Current Medications Generic Name Dose Route Start Last Admin Trade Name Freq PRN Reason Stop Dose Admin Diphenhydramine HCl 25 mg 12/27/17 22:21 12/27/17 22:46 Benadryl PO 25 mg Q4HR PRN Administration Allergy Symptoms Docusate Sodium 250 - 500 mg 12/28/17 09:00 12/28/17 08:07 Colace 250mg Capsule PO 250 mg DAILY YENI Administration Duloxetine HCl 20 mg 12/28/17 09:00 12/28/17 08:07 Cymbalta PO 20 mg DAILY YENI Administration Enoxaparin Sodium 40 mg 12/27/17 09:00 12/28/17 08:10 Lovenox SUBQ 40 mg DAILY YENI Administration Ketorolac Tromethamine 30 mg 12/27/17 12:54 12/28/17 06:30 Toradol Inj (30mg) IVP 01/01/18 12:53 30 mg Q6HR PRN Administration PAIN Morphine Sulfate 2 mg 12/26/17 19:14 12/28/17 00:58 Morphine (Carpuject) IVP 2 mg Q2HR PRN Administration Pain 8 to 10 Nicotine 1 patch 12/27/17 14:10 12/28/17 08:07 Nicoderm TOP 1 patch DAILY YENI Administration Ondansetron HCl 4 mg 12/26/17 19:14 12/27/17 12:57 Zofran Inj IVP 4 mg Q6HR PRN Administration Nausea / Vomiting Oxycodone HCl 5 mg 12/27/17 12:54 12/28/17 09:13 Roxicodone PO 5 mg Q4HR PRN Administration PAIN Sodium Chloride 10 ml 12/27/17 01:00 12/28/17 10:58 Normal Saline Flush 0.9% IVP Not Given 0100,0900,1700 YENI Sodium Chloride 10 ml 12/26/17 19:14 12/27/17 01:59 Normal Saline Flush 0.9% IVP 10 ml PRN PRN Administration NEEDED PER PROVIDER ORDERS - Lab Result Lab results reviewed: Yes Fish Bone Diagrams: 12/28/17 05:55 12/28/17 05:55 - Diagnostic Imaging Results Diagnostic Imaging Results: Final report reviewed - Additional Planning Condition/Complexity: Improved My Orders: My Active Orders 12/27/17 12:53 Acetaminophen [Tylenol] 650 mg PO Q4HR PRN 12/27/17 12:54 Ketorolac Inj (30Mg) [Toradol Inj (30Mg)] 30 mg IVP Q6HR PRN oxyCODONE [Roxicodone] 5 mg PO Q4HR PRN 12/27/17 14:10 Nicotine 21 mg Patch [Nicoderm] 1 patch TOP DAILY 12/28/17 09:00 Docusate Sodium 250Mg Capsule [Colace 250Mg Capsule] 250 - 500 mg PO DAILY 12/28/17 21:00 levoFLOXacin [Levaquin] 750 mg PO QPM 12/28/17 Lunch Full Liquid Diet [DIET] Consult/Specialty: PT Plan Discussed with:: Patient Time Spent: 31-60 minutes Subjective - Subjective Patient Reports: Feeling Better, Resting Comfortably, Back Pain (Continues to have back pain), Other (No nausea, vomiting or abdominal pain) Nursing Reports: No Complaints Objective Vital Signs: Vital Signs - 24 hr 12/27/17 12/27/17 12/28/17 13:59 15:20 00:06 Temperature 36.7 C 37.1 C 36.5 C Heart Rate [ 95 88 84 Brachial] Respiratory 18 14 18 Rate Blood Pressure 122/60 116/50 L 105/61 [Left Brachial artery] O2 Saturation 91 L 96 96 12/28/17 07:45 Temperature 36.6 C Heart Rate [ 88 Brachial] Respiratory 20 Rate Blood Pressure 102/60 [Left Brachial artery] O2 Saturation 95 Oxygen O2 Source Room air I&O (Last 24 Hrs): Intake and Output Totals x24h 12/26/17 12/27/17 12/28/17 23:59 23:59 23:59 Intake Total 1750 3163.333 1880.000 Output Total 750 1250 550 Balance 1000 8822.234 9671.000 General: Alert, Oriented x3, Cooperative, No acute distress HEENT: Atraumatic, PERRLA, EOMI, Mucous membr. moist/pink Neck: Supple, No JVD, No thyromegaly, +2 carotid pulse wo bruit, No LAD Lymphatic: no adenopathy Neuro: Alert, Non Focal, CN 2-12 Grossly Intact, Oriented Times 3 Cardiovascular: No murmurs, Other (Irregularly irregular) Respiratory: Chest non-tender, No respiratory distress, Rhonchi (Bases) Abdomen: Normal bowel sounds, Soft, Other (Distended, non tender) Extremities: No cyanosis, No edema, Normal pulses Skin: No rashes, No breakdown - Results Results: Laboratory Results WBC 12.7 x10^3/uL (4.8-10.8) H 12/28/17 05:55 RBC 3.22 10^6/uL (4.70-6.10) L 12/28/17 05:55 Hgb 10.0 g/dL (14.0-18.0) L 12/28/17 05:55 Hct 29.3 % (42.0-52.0) L 12/28/17 05:55 MCV 91.0 fL (80.0-94.0) 12/28/17 05:55 MCH 31.1 pg (27.0-31.0) H 12/28/17 05:55 MCHC 34.2 g/dL (32.0-36.0) 12/28/17 05:55 RDW 14.1 % (12.0-15.0) 12/28/17 05:55 Plt Count 414 10^3/uL (130-450) 12/28/17 05:55 MPV 6.3 fL (7.4-11.4) L 12/28/17 05:55 Neut # (Auto) 9.4 10^3/uL (1.5-6.6) H 12/28/17 05:55 Lymph # (Auto) 3.2 10^3/uL (1.5-3.5) 12/28/17 05:55 [place] # (Auto) 0.1 10^3/uL (0.0-1.0) 12/28/17 05:55 Eos # (Auto) 0.0 10^3/uL (0.0-0.7) 12/28/17 05:55 Baso # (Auto) 0.0 10^3/uL (0.0-0.1) 12/28/17 05:55 Absolute Nucleated RBC 0.00 x10^3/uL 12/28/17 05:55 Band Neuts % (Manual) Not Reportable 12/26/17 16:32 Abnorm Lymph % (Manual) Not Reportable 12/26/17 16:32 Nucleated RBC % 0.0 /100WBC 12/28/17 05:55 Neutrophils # (Manual) Not Reportable 12/26/17 16:32 Lymphocytes # (Manual) Not Reportable 12/26/17 16:32 Monocytes # (Manual) Not Reportable 12/26/17 16:32 Eosinophils # (Manual) Not Reportable 12/26/17 16:32 Basophils # (Manual) Not Reportable 12/26/17 16:32 Differential Comment MANUAL=AUTO DIFF 12/26/17 16:32 Manual Slide Review Indicated 12/26/17 16:32 Platelet Estimate INCREASED (>450,000) (NORMAL) 12/26/17 16:32 Platelet Morphology NORMAL APPEARANCE (NORMAL) 12/26/17 16:32 RBC Morph Micro Appear NORMAL APPEARANCE (NORMAL) 12/26/17 16:32 PT 12.1 secs (9.9-12.6) 12/26/17 16:32 INR 1.1 (0.8-1.2) 12/26/17 16:32 APTT 27.4 secs (24.9-33.3) 12/26/17 16:32 Sodium 135 mmol/L (135-145) 12/28/17 05:55 Potassium 3.9 mmol/L (3.5-5.0) 12/28/17 05:55 Chloride 106 mmol/L (101-111) 12/28/17 05:55 Carbon Dioxide 23 mmol/L (21-32) 12/28/17 05:55 Anion Gap 6.0 (6-13) 12/28/17 05:55 BUN 11 mg/dL (6-20) 12/28/17 05:55 Creatinine 0.7 mg/dL (0.6-1.2) 12/28/17 05:55 Estimated GFR (MDRD) 109 (>89) 12/28/17 05:55 Glucose 110 mg/dL (70-100) H 12/28/17 05:55 Lactic Acid 1.3 mmol/L (0.5-2.2) 12/26/17 17:55 Calcium 7.5 mg/dL (8.5-10.3) L 12/28/17 05:55 Total Bilirubin 0.9 mg/dL (0.2-1.0) 12/26/17 16:32 AST 21 IU/L (10-42) 12/26/17 16:32 ALT 15 IU/L (10-60) 12/26/17 16:32 Alkaline Phosphatase 111 IU/L (42-121) 12/26/17 16:32 Troponin I < 0.04 ng/mL (<0.49) 12/26/17 16:32 Total Protein 6.4 g/dL (6.7-8.2) L 12/26/17 16:32 Albumin 3.1 g/dL (3.2-5.5) L 12/26/17 16:32 Globulin 3.3 g/dL (2.1-4.2) 12/26/17 16:32 Albumin/Globulin Ratio 0.9 (1.0-2.2) L 12/26/17 16:32 Lipase 24 U/L (22-51) 12/26/17 16:32 Carcinoembryonic Ag 1.8 ng/mL 12/27/17 09:39 PSA Screen 3.020 ng/mL (0.000-2.000) H 12/27/17 09:39 Urine Color YELLOW 12/26/17 16:32 Urine Clarity CLOUDY (CLEAR) 12/26/17 16:32 Urine pH 8.0 PH (5.0-7.5) H 12/26/17 16:32 Ur Specific [place] 1.015 (1.002-1.030) 12/26/17 16:32 Urine Protein 30 mg/dL (NEGATIVE) H 12/26/17 16:32 Urine Glucose (UA) NEGATIVE mg/dL (NEGATIVE) 12/26/17 16:32 Urine Ketones 15 mg/dL (NEGATIVE) H 12/26/17 16:32 Urine Occult Blood SMALL (NEGATIVE) H 12/26/17 16:32 Urine Nitrite NEGATIVE (NEGATIVE) 12/26/17 16:32 Urine Bilirubin NEGATIVE (NEGATIVE) 12/26/17 16:32 Urine Urobilinogen 1 (NORMAL) E.U./dL (NORMAL) 12/26/17 16:32 Ur Leukocyte Esterase MODERATE (NEGATIVE) H 12/26/17 16:32 Urine RBC 6-10 /HPF (0-5) H 12/26/17 16:32 Urine WBC >25 /HPF (0-3) H 12/26/17 16:32 Urine WBC Clumps PRESENT 12/26/17 16:32 Ur Squamous Epith Cells NONE SEEN (<= Few) 12/26/17 16:32 Urine Bacteria Moderate /HPF (None Seen) H 12/26/17 16:32 Ur Microscopic Review INDICATED 12/26/17 16:32 Urine Culture Comments INDICATED 12/26/17 16:32 Blood Type AB POSITIVE 12/26/17 16:32 Antibody Screen NEGATIVE 12/26/17 16:32 - Procedures Procedures: Procedures CATARAC PHACOEMULS/ASPIR (02/12/13) INSERT LENS AT CATAR EXT (02/12/13) ABX Reporting Has patient been on IV antibiotics over the past 48 hours?: No Current Medications - Current Medications Current Medications: Active Medications Generic Name Dose Route Start Last Admin Trade Name Freq PRN Reason Stop Dose Admin Acetaminophen 650 mg 12/27/17 12:53 Tylenol PO Q4HR PRN Pain or Fever > 38C (100.4F) Diphenhydramine HCl 25 mg 12/27/17 22:21 12/27/17 22:46 Benadryl PO 25 mg Q4HR PRN Administration Allergy Symptoms Docusate Sodium 250 - 500 mg 12/28/17 09:00 12/28/17 08:07 Colace 250mg Capsule PO 250 mg DAILY YENI Administration Duloxetine HCl 20 mg 12/28/17 09:00 12/28/17 08:07 Cymbalta PO 20 mg DAILY YENI Administration Enoxaparin Sodium 40 mg 12/27/17 09:00 12/28/17 08:10 Lovenox SUBQ 40 mg DAILY YENI Administration Ketorolac Tromethamine 30 mg 12/27/17 12:54 12/28/17 06:30 Toradol Inj (30mg) IVP 01/01/18 12:53 30 mg Q6HR PRN Administration PAIN Levofloxacin 750 mg 12/28/17 21:00 Levaquin PO QPM [facility] Morphine Sulfate 2 mg 12/26/17 19:14 12/28/17 00:58 Morphine (Carpuject) IVP 2 mg Q2HR PRN Administration Pain 8 to 10 Nicotine 1 patch 12/27/17 14:10 12/28/17 08:07 Nicoderm TOP 1 patch DAILY YENI Administration Ondansetron HCl 4 mg 12/26/17 19:14 12/27/17 12:57 Zofran Inj IVP 4 mg Q6HR PRN Administration Nausea / Vomiting Oxycodone HCl 5 mg 12/27/17 12:54 12/28/17 09:13 Roxicodone PO 5 mg Q4HR PRN Administration PAIN Prochlorperazine Edisylate 10 mg 12/26/17 19:14 Compazine Inj IVP Q6HR PRN Nausea / Vomiting Sodium Chloride 10 ml 12/27/17 01:00 12/28/17 10:58 Normal Saline Flush 0.9% IVP Not Given 0100,0900,1700 YENI Sodium Chloride 10 ml 12/26/17 19:14 12/27/17 01:59 Normal Saline Flush 0.9% IVP 10 ml PRN PRN Administration NEEDED PER PROVIDER ORDERS Aspirin 325 mg PO QDAC 12/31/12 Duloxetine HCl 20 mg PO DAILY 12/26/17 Furosemide 40 mg PO DAILY 12/26/17 Morphine ER 15 mg PO BID 12/26/17 Omeprazole [PriLOSEC] 20 mg PO DAILY 12/26/17 Ondansetron [Zofran Odt] 8 mg PO TID PRN 12/26/17 Polyethylene Glycol 3350 [Miralax] 17 gm PO DAILY 12/26/17 Potassium Chloride [Klor-Con M20] 20 meq PO DAILY 12/26/17 Senna [Senokot] 8.6 mg PO BID PRN 12/26/17 Spironolactone 50 mg PO BID 12/26/17 Tamsulosin HCl [Flomax] 0.8 mg PO DAILY 12/26/17 traMADol [Ultram] 50 mg PO QID PRN 12/26/17
[2017-12-28] MEDS ORDERED: levoFLOXacin 250 MG TABLET PO SCH (21:00)
[2017-12-29] MEDS: SODIUM CHLORIDE FLUSH 0.9% 10 ML SYRINGE IVP SCH (00:07)
[2017-12-29] MEDS: oxyCODONE 5 MG TABLET PO PRN ×2 (05:17→11:37)
[2017-12-29 06:03] LABS: BASOPHILS % (AUTO) 0.2 %; EOSINOPHILS # (AUTO) 0.1 10^3/uL (0.0-0.7); EOSINOPHILS % (AUTO) 0.9 %; HGB - HEMOGLOBIN 9.7 g/dL (14.0-18.0); LYMPHOCYTES # (AUTO) 3.9 10^3/uL (1.5-3.5); LYMPHOCYTES % (AUTO) 33.1 %; MEAN CORPUSCULAR HEMOGLOBIN 30.9 pg (27.0-31.0); MEAN CORPUSCULAR HGB CONC 33.8 g/dL (32.0-36.0); MEAN CORPUSCULAR VOLUME 91.5 fL (80.0-94.0); MEAN PLATELET VOLUME 6.3 fL (7.4-11.4); MONOCYTES # (AUTO) 0.5 10^3/uL (0.0-1.0); MONOCYTES % (AUTO) 4.3 %; NEUTROPHILS # (AUTO) 7.2 10^3/uL (1.5-6.6); NEUTROPHILS % (AUTO) 61.5 %; PLT - PLATELET COUNT 424 10^3/uL (130-450); RED BLOOD COUNT 3.16 10^6/uL (4.70-6.10); RED CELL DISTRIBUTION WIDTH 14.2 % (12.0-15.0); WHITE BLOOD COUNT 11.7 x10^3/uL (4.8-10.8)
[2017-12-29 06:16] LABS: CALCIUM 7.6 mg/dL (8.5-10.3); CREATININE 0.6 mg/dL (0.6-1.2)
[2017-12-29 07:29] VITALS: BP 121/66
[2017-12-29] MEDS: DOCUSATE SODIUM 250 MG CAPSULE PO SCH (08:50)
[2017-12-29] MEDS: DULoxetine 20 MG CAPSULE PO SCH (08:50)
[2017-12-29] MEDS: NICOTINE 21 MG PATCH TOP SCH (08:51)
[2017-12-29] MEDS: ENOXAPARIN 40 MG/0.4 ML SYRINGE SUBQ SCH (08:56)
--- NOTE | 2017-12-29 10:10 | Discharge Plan ---
"Discharge Plan [facility] SNF / [facility] - Discharge Plan And Transition Orders Condition: Fair Allergies and Adverse Reactions: Allergies Allergy/AdvReac Type Severity Reaction Status Date / Time cefepime Allergy Rash Verified 12/27/17 22:38 - SNF / CORRECTION Transition Orders Admit to (Facility): [facility] Under the care of (Name): Will Gallagher MD Discharge Diagnosis: 1. Adynamic ileus 2. Urinary tract infection 3. Atelectasis of both lungs 4. Weakness 5. Obstructive uropathy 6. Congestive heart failure 7. Chronic atrial fibrillation 8. Status post laminectomy 9. Abnormal loss of weight 10. Full CODE STATUS Medicare Certification Statement: I certify that [facility] al[facility] care is medically necessary on a continuing basis for any of the conditions for which she/he is receiving care during hospitalization. Notify PCP of admission and forward orders to primary provider for signature. Weight on admission and: Weekly Call PCP immediately if weight increases by: 2.268 kg Other Notification Orders: Call PCP immediately if patient develops dyspnea, chest pain/tightness or edema. House Bowel Program: Yes Additional Bowel Program Orders: If no BM after 2 days, nurse may give M.O.M. 30ml PO PRN and/or ducolax Supp 1 AK and/or DELROY 250mg P.O., and/or senna 1-2 tabs PO. On day 3 nurse may give repeat above order until residents constipation is resolved. Annual Influenza Vaccine (between Dec 08 and July 07): Yes Two-step PPD per [facility] [id number] or approved exception documents: Yes Treatments & Other Orders: Continue hensley catheter. Continue PO levaquin for 10 days Oxygen Orders: None Lab Tests or X-ray Orders: None Medication Orders: PLEASE REFER TO THE DISCHARGE MEDICATION LIST. Insulin Orders?: No - Medications New Prescriptions: Morphine ER 15 mg PO BID #6 tablet Oxycodone HCl/Acetaminophen [Percocet 5-325 mg Tablet] 1 each PO Q6H PRN #10 tablet PRN Reason: Pain - Diet Type: No added salt Texture: Regular Liquids: Thin May have monthly special meal: Yes - Therapies | Activity Therapy: Evaluation | Treat if indicated: PT, OT Rehabilitation Potential: Maximize functional status Activity: Activity as Tolerated Assistance Devices: Walker Follow Up: Patient to follow up with PCP once discharged from [facility]"
[2017-12-29] MEDS ORDERED: POTASSIUM CHLORIDE 20 MEQ TABLET PO ONE (10:11)
--- NOTE | 2017-12-29 10:26 | DISCHARGE SUMMARY ---
Discharge Summary Admit Date: 12/26/17 Discharge Date: 12/29/17 Discharging Provider: Roger Mendoza MD Primary Care Provider: Mesfin Powell MD Code Status: Attempt Resuscitation Condition at Discharge: Fair Discharge Disposition: 03 SNF DC/Xfer Discharge Facility Name: [facility] - DIAGNOSES Admission Diagnoses: 1. Adynamic ileus 2. Urinary tract infection 3. Atelectasis of both lung 4. Weakness 5. Obstructive uropathy 6. Chronic congestive heart failure 7. Chronic atrial fibrillation 8. Status post laminectomy 9. Abnormal weight loss 10. Full CODE STATUS Discharge Diagnoses with Status of Each Condition: 1. Adynamic ileus: Improved 2. Urinary tract infection: Stable 3. Atelectasis of both lung: Stable 4. Weakness: Stable 5. Obstructive uropathy: Stable 6. Chronic congestive heart failure: Stable 7. Chronic atrial fibrillation: Stable 8. Status post laminectomy: Stable 9. Abnormal weight loss: Stable - HPI History of Present Illness: He is an elderly gentleman who lives in his own home with his until recently. He has had 2 major problems over the last year. The first was weight loss. He started out at 240 pounds and an effort to lose weight deliberately dieted by eating smaller portions and never eating seconds. He was successful in his weight loss down to about 190 pounds. He has always had chronic back pain, and that became worse over the last few months. In late October into November he started falling. He had not realized how weak his legs were until he fell in the shower. He then had several subsequent falls in his own home because his legs would not support him. He was seen in our emergency room once and diagnosed as a burst fracture of L3 and another new one of L4. Even before his fall with lumbar compression fractures, he had already been diagnosis lumbar spinal stenosis on CAT scan months ago. After being evaluated by his primary care provider for the weakness and the falls, he was sent to [facility] and admitted from November 27 - November 30 for back pain, urinary retention. Pain was managed by adding long-acting opioid as well as as needed short acting opioid. He underwent steroid epidural shots. A Hensley was placed and Flomax was added for the urinary retention. From [facility] he went to [facility] for a short term of rehab. He continued to have back pain and increasing leg weakness with the right foot drop. He was evaluated by Dr. Carcamo, orthopedics, and readmitted December 18 - December 21 to [facility]. He had an L3 and L4 kyphoplasty with L2-L5 laminectomy. He did very well in the immediate postoperative period and was even starting to have slow recovery of a chronic right foot drop. But he was a 2 person assist still requiring quite a bit of help and was sent back to [facility] on December 21. He tells me that he has been slow to progress. But he has been working with physical therapy. 2 days ago he was able to walk 20 feet with a walker and a physical therapy one-person assist. Yesterday he started getting w eak, for no clear reasons, to the point he couldn't get out of bed anymore. And today he started having nausea, vomiting, abdominal distention. No fever, no chills. He states that he has been doing his incentive spirometry and denies coughing or chest congestion. He denies hematemesis but [facility] says that there might of been coffee grounds in it. There has been no bloody stool. He had a bowel movement at the [facility] facility and had another one in the emergency room. He continues to have a hensley even though the discharge summary from [place] discusses possible bladder training and removal of the hensley. In the emergency room he was evaluated by Dr. Foss. He has an elevated white cell count but no fever. He was normotensive at 123/74 and oxygenating 96% on room air. CT scan was done of the abdomen and the findings were: New small bilateral pleural effusions with subsegmental atelectasis of the left posterior lung base. Increasing segmental consolidation/atelectasis the right posterior lung base. No free air in the peritoneal cavity. New mild dilation involving the entirety of the small bowel without appreciable small bowel thickening. A 6 cm loop of mild ileum is seen in an umbilical hernia. There is narrowing of the small bowel as it transverses the hernia neck but the afferent and efferent small bowel are equal in caliber. No transition point. Small fluid-filled inguinal hernias. A Hensley catheter with complete emptying of urinary bladder. He also has diverticulosis and a small amount of ascites. Urinalysis with a chronic indwelling Hensley has a pH of 8, proteinuria, ketonuria, small occult blood, leukocyte Estrace moderate, 6-10 wet cells, greater than 25 white cells, moderate bacteria, no squamous epithelial cells. The patient is now admitted for ileus versus small bowel obstruction, a urinary tract infection vs. hensley colonization and atelectasis that may be tending toward pneumonia. - HOSPITAL COURSE Hospital Course: (1) Adynamic ileus Assessment/Plan: Patient likely has ileus from a combination of factors. First of all, he has been placed on long-acting opioids as well as short acting opioids for over a month. Second of all, he has a urinary tract infection, and atelectasis versus incipient pneumonia. He does have an elevated white cell count but does not have a fever. this has resulted ileus with nausea and vomitting. He does have a large ventral hernia which the radiologist was concerned maybe incarcerated therefore surgery was consulted and they reduced the hernia but did not feel it was incarcerated and advised continued management for ileus Patients diet was advanced to a regular diet and he was able to tolerate it well Pain and nausea both resolved Patient had several BMs Resolved (2) UTI (urinary tract infection) Conclusion/Plan: Patient had a chronic hensley catheter on presentation Hensley was changed Urine cx grew ESBL producing klebsiella which was susceptible to levaquin Placed on PO levaquin and patients WBC continued to improve down to 11.7 from 21.2 at discharge Patient was much improved and discharged on 10 additional days of PO levaquin as he had a complicated UTI for total of 14 days of treatment He was discharged back to [facility] Qualifiers: Urinary tract infection type: acute cystitis Hematuria presence: with hematuria Qualified Code(s): N30.01 - Acute cystitis with hematuria (3) Atelectasis of both lungs Conclusion/Plan: Concerning for early pneumonia. He states that he has been using his incentive spirometry at the [facility] facility. We will reorder it for use here. He was started on empiric antibiotic therapy for the urinary tract infection as well as possible pneumonia in the form of cefepime and vancomycin. Patient had a drug reaction rash and cefepime was stopped. Then patient grew ESBL producing klebsiella on urine cx and vanco was also stopped. Patient will continue levaquin PO. He is not hypoxic or febrile and WBC is improving. Continue Levaquin for 10 more days as above. (4) Weakness Conclusion/Plan: Generalized weakness in a gentleman who has lost quite a bit of weight over the last year, has suffered compression fractures, back surgery, and most recently ileus over the last day or 2. Likely secondary to UTI and ileus Improved during hospitalization but patient still needs further PT/OT Discharged to [facility] for PT/OT (5) Obstructive uropathy Conclusion/Plan: And his subsequent chronic kidney disease state of stage III. He has had a retroperitoneal ultrasound in the past. That was done October 26, 2017 which confirmed dilated ureters. Of note, once the Hensley was placed his creatinine came down to 0.8 and GFR is now normal. he is felt to have BPH with LUTS. As stated above for urinary tract infection, a new Hensley catheter was placed to replace his chronic indwelling one. Continue flomax. Continue chronic hensley catheter at discharge (6) Chronic congestive heart failure Conclusion/Plan: This is a diagnosis placed in his past medical history with his [facility] admission. However the says that the patient has "only pedal edema" and that he does not have congestive heart failure. She also states that the patient was seen by Dr. Gentile 3 years ago for chronic atrial fibrillation but not for congestive heart failure. Echo from earlier this month shows normal EF Continue spironolactone and lasix Qualifiers: Heart failure type: unspecified Qualified Code(s): I50.9 - Heart failure, unspecified (7) Chronic atrial fibrillation Conclusion/Plan: [id number] Score for atrial fibrillation stroke risk results in 3 points. A score of 2 or greater is "moderate high" risk and should otherwise be an anticoagulation candidate. No anticoagulation just ASA (8) Status post laminectomy Conclusion/Plan: Surgery done 12/18/17. Continue PT and OT at [facility] (9) Abnormal loss of weight Conclusion/Plan: His initial weight loss is attributed to deliberate dieting on his part. But then it went beyond that. He dropped from the 190 goal to the 170s when he started feeling with regards to his legs, increasing falls. I think a combination of spinal stenosis plus severe weight loss resulted in the weakness and falls. He describes a colonoscopy in the past that was negative. One must think of a neoplasm and you have unanticipated weight loss such as this gentleman is had. Or could his weight loss be simply because he was in so much pain from his back. Plan: CEA negative PSA mildly elevated will need to be followed up as outpatient and in setting of UTI with BPH could be elevated (10) Full code status Conclusion/Plan: per his POLST filled out at [facility] munira Chandra. After discussing the POLST going over line item by line on him, he realizes he does not want to be resuscitated if he does not have a pulse or pressure. But he would like everything done up until that point. He wants to be aggressively treated. - ALLERGIES Allergies/Adverse Reactions: Allergies Allergy/AdvReac Type Severity Reaction Status Date / Time cefepime Allergy Rash Verified 12/27/17 22:38 - MEDICATIONS Home Medications: Ambulatory Orders Medication Instructions Recorded Confirmed Aspirin 325 mg PO QDAC 12/31/12 12/27/17 Duloxetine HCl 20 mg PO DAILY 12/26/17 12/27/17 Furosemide 40 mg PO DAILY 12/26/17 12/27/17 Omeprazole [PriLOSEC] 20 mg PO DAILY 12/26/17 12/27/17 Ondansetron [Zofran Odt] 8 mg PO TID PRN 12/26/17 12/27/17 Polyethylene Glycol 3350 [Miralax] 17 gm PO DAILY 12/26/17 12/27/17 Potassium Chloride [Klor-Con M20] 20 meq PO DAILY 12/26/17 12/27/17 Senna [Senokot] 8.6 mg PO BID PRN 12/26/17 12/27/17 Spironolactone 50 mg PO BID 12/26/17 12/27/17 Tamsulosin HCl [Flomax] 0.8 mg PO DAILY 12/26/17 12/27/17 traMADol [Ultram] 50 mg PO QID PRN 12/26/17 12/27/17 Morphine ER 15 mg PO BID #6 tablet 12/29/17 Nicotine 21 mg Patch [Nicoderm] 1 patch TOP DAILY patch 12/29/17 Oxycodone HCl/Acetaminophen 1 each PO Q6H PRN #10 tablet 12/29/17 [Percocet 5-325 mg Tablet] levoFLOXacin [Levaquin] 750 mg PO QPM tablet 12/29/17 - PHYSICAL EXAM AT DISCHARGE General Appearance: positive: No acute distress, Alert Eyes Bilateral: positive: Normal inspection, PERRL, EOMI, No lid inflammation, Conjunctivae nml, No scleral icterus ENT: positive: ENT inspection nml, Pharynx nml, No signs of dehydration. negative: Purulent nasal drainage, Pharyngeal erythema, Oral lesions Neck: positive: Nml inspection, Thyroid nml, No JVD, Trachea midline. negative: Thyromegaly, Lymphadenopathy (R), Lymphadenopathy (L), Stiff neck, Carotid bruit, Tracheal deviation Respiratory: positive: Chest non-tender, No respiratory distress, Breath sounds nml, Rales (Bases). negative: Wheezes, Rhonchi Cardiovascular: positive: No murmur, No gallop, Irregularly irregular Peripheral Pulses: positive: 2+ Abdomen: positive: Non-tender, No organomegaly, Nml bowel sounds, No distention. negative: Guarding, Rebound, Hepatomegaly Back: positive: Nml inspection. negative: CVA tenderness (R), CVA tenderness (L) Skin: positive: Color nml, No rash, Warm Extremities: positive: Non-tender, Full ROM, Nml appearance, Pedal edema (Bilateral 2+) Neurologic/Psychiatric: positive: Oriented x3, CN's nml (2-12), Motor nml, Sensation nml, Mood/affect nml - LABS Result Diagrams: 12/29/17 05:40 12/29/17 05:40 Other Lab Results: Laboratory Results WBC 11.7 x10^3/uL (4.8-10.8) H 12/29/17 05:40 RBC 3.16 10^6/uL (4.70-6.10) L 12/29/17 05:40 Hgb 9.7 g/dL (14.0-18.0) L 12/29/17 05:40 Hct 28.9 % (42.0-52.0) L 12/29/17 05:40 MCV 91.5 fL (80.0-94.0) 12/29/17 05:40 MCH 30.9 pg (27.0-31.0) 12/29/17 05:40 MCHC 33.8 g/dL (32.0-36.0) 12/29/17 05:40 RDW 14.2 % (12.0-15.0) 12/29/17 05:40 Plt Count 424 10^3/uL (130-450) 12/29/17 05:40 MPV 6.3 fL (7.4-11.4) L 12/29/17 05:40 Neut # (Auto) 7.2 10^3/uL (1.5-6.6) H 12/29/17 05:40 Lymph # (Auto) 3.9 10^3/uL (1.5-3.5) H 12/29/17 05:40 [place] # (Auto) 0.5 10^3/uL (0.0-1.0) 12/29/17 05:40 Eos # (Auto) 0.1 10^3/uL (0.0-0.7) 12/29/17 05:40 Baso # (Auto) 0.0 10^3/uL (0.0-0.1) 12/29/17 05:40 Absolute Nucleated RBC 0.01 x10^3/uL 12/29/17 05:40 Band Neuts % (Manual) Not Reportable 12/26/17 16:32 Abnorm Lymph % (Manual) Not Reportable 12/26/17 16:32 Nucleated RBC % 0.1 /100WBC 12/29/17 05:40 Neutrophils # (Manual) Not Reportable 12/26/17 16:32 Lymphocytes # (Manual) Not Reportable 12/26/17 16:32 Monocytes # (Manual) Not Reportable 12/26/17 16:32 Eosinophils # (Manual) Not Reportable 12/26/17 16:32 Basophils # (Manual) Not Reportable 12/26/17 16:32 Differential Comment MANUAL=AUTO DIFF 12/26/17 16:32 Manual Slide Review Indicated 12/26/17 16:32 Platelet Estimate INCREASED (>450,000) (NORMAL) 12/26/17 16:32 Platelet Morphology NORMAL APPEARANCE (NORMAL) 12/26/17 16:32 RBC Morph Micro Appear NORMAL APPEARANCE (NORMAL) 12/26/17 16:32 PT 12.1 secs (9.9-12.6) 12/26/17 16:32 INR 1.1 (0.8-1.2) 12/26/17 16:32 APTT 27.4 secs (24.9-33.3) 12/26/17 16:32 Sodium 132 mmol/L (135-145) L 12/29/17 05:40 Potassium 3.3 mmol/L (3.5-5.0) L 12/29/17 05:40 Chloride 102 mmol/L (101-111) 12/29/17 05:40 Carbon Dioxide 23 mmol/L (21-32) 12/29/17 05:40 Anion Gap 7.0 (6-13) 12/29/17 05:40 BUN 13 mg/dL (6-20) 12/29/17 05:40 Creatinine 0.6 mg/dL (0.6-1.2) 12/29/17 05:40 Estimated GFR (MDRD) 130 (>89) 12/29/17 05:40 Glucose 97 mg/dL (70-100) 12/29/17 05:40 Lactic Acid 1.3 mmol/L (0.5-2.2) 12/26/17 17:55 Calcium 7.6 mg/dL (8.5-10.3) L 12/29/17 05:40 Total Bilirubin 0.9 mg/dL (0.2-1.0) 12/26/17 16:32 AST 21 IU/L (10-42) 12/26/17 16:32 ALT 15 IU/L (10-60) 12/26/17 16:32 Alkaline Phosphatase 111 IU/L (42-121) 12/26/17 16:32 Troponin I < 0.04 ng/mL (<0.49) 12/26/17 16:32 Total Protein 6.4 g/dL (6.7-8.2) L 12/26/17 16:32 Albumin 3.1 g/dL (3.2-5.5) L 12/26/17 16:32 Globulin 3.3 g/dL (2.1-4.2) 12/26/17 16:32 Albumin/Globulin Ratio 0.9 (1.0-2.2) L 12/26/17 16:32 Lipase 24 U/L (22-51) 12/26/17 16:32 Carcinoembryonic Ag 1.8 ng/mL 12/27/17 09:39 PSA Screen 3.020 ng/mL (0.000-2.000) H 12/27/17 09:39 Urine Color YELLOW 12/26/17 16:32 Urine Clarity CLOUDY (CLEAR) 12/26/17 16:32 Urine pH 8.0 PH (5.0-7.5) H 12/26/17 16:32 Ur Specific Brooks 1.015 (1.002-1.030) 12/26/17 16:32 Urine Protein 30 mg/dL (NEGATIVE) H 12/26/17 16:32 Urine Glucose (UA) NEGATIVE mg/dL (NEGATIVE) 12/26/17 16:32 Urine Ketones 15 mg/dL (NEGATIVE) H 12/26/17 16:32 Urine Occult Blood SMALL (NEGATIVE) H 12/26/17 16:32 Urine Nitrite NEGATIVE (NEGATIVE) 12/26/17 16:32 Urine Bilirubin NEGATIVE (NEGATIVE) 12/26/17 16:32 Urine Urobilinogen 1 (NORMAL) E.U./dL (NORMAL) 12/26/17 16:32 Ur Leukocyte Esterase MODERATE (NEGATIVE) H 12/26/17 16:32 Urine RBC 6-10 /HPF (0-5) H 12/26/17 16:32 Urine WBC >25 /HPF (0-3) H 12/26/17 16:32 Urine WBC Clumps PRESENT 12/26/17 16:32 Ur Squamous Epith Cells NONE SEEN (<= Few) 12/26/17 16:32 Urine Bacteria Moderate /HPF (None Seen) H 12/26/17 16:32 Ur Microscopic Review INDICATED 12/26/17 16:32 Urine Culture Comments INDICATED 12/26/17 16:32 Blood Type AB POSITIVE 12/26/17 16:32 Antibody Screen NEGATIVE 12/26/17 16:32 - DIAGNOSTIC IMAGING Diagnostic Imaging Results: Final report reviewed Diagnostic Imaging Results Comments: CT abdomen/pelvis Impression: 1. Small bilateral pleural effusions. 2. Segmental right and subsegmental left posterior basilar consolidation/atelectasis. 3. New short segment of mildly constricted mid ileum within the umbilical hernia. 4. However, mild dilation of the parity of the small bowel such that ileus is f avored over mild partial distal small bowel obstruction. 5. Colonic diverticulosis 6. Small bilateral inguinal hernias without bowel involvement 7. Small amount of ascites Abdominal x-ray Impression bowel gas pattern compatible with obstruction. Please note that the known umbilical hernia is in a closed loop configuration and demonstrates the equivalent of interloop fluid and if equalization. Therefore if this hernia is found to be nonreducible on physical examination it should be intervened upon. Abdominal x-ray Impression: 1. Dilated small bowel loops similar. - FOLLOW UP Follow Up: Patient presented with adynamic ileus and urinary tract infection with bilateral lung atelectasis and possible early pneumonia. Patient was treated with IV flu ids and antibiotics. The patient had resolution of his ileus and had improvement in symptoms of his infection. Patient grew out ESBL producing Klebsiella which was susceptible to Levaquin. The patient was placed on Levaquin for 2 weeks and was discharged back to [facility]. Patient was stable at the time of discharge. - TIME SPENT Time Spent in Discharge (Minutes): 45
== END 2017-12-29 12:17 | DRG 389 ==
LOC: ED 15:29 → MS2 19:14
PROVIDERS: ADMIT Specialist; ATTEND Internal Medicine
DX: K56.609 Unspecified intestinal obstruction, unspecified as to partial versus complete obstruction (principal); N39.0 Urinary tract infection, site not specified; R31.29 Other microscopic hematuria; R53.1 Weakness; Z98.890 Other specified postprocedural states; K56.0 Paralytic ileus; N30.01 Acute cystitis with hematuria; N13.8 Other obstructive and reflux uropathy; I13.0 Hypertensive heart and chronic kidney disease with heart failure and stage 1 through stage 4 chronic kidney disease, or unspecified chronic kidney disease; J98.11 Atelectasis; I50.32 Chronic diastolic (congestive) heart failure; T40.2X5A Adverse effect of other opioids, initial encounter; I48.2 Chronic atrial fibrillation; R63.4 Abnormal weight loss; B96.1 Klebsiella pneumoniae [K. pneumoniae] as the cause of diseases classified elsewhere; S32.031D Stable burst fracture of third lumbar vertebra, subsequent encounter for fracture with routine healing; S32.041D Stable burst fracture of fourth lumbar vertebra, subsequent encounter for fracture with routine healing; N18.3 Chronic kidney disease, stage 3 (moderate); N40.1 Benign prostatic hyperplasia with lower urinary tract symptoms; N39.498 Other specified urinary incontinence; R39.11 Hesitancy of micturition; R39.15 Urgency of urination; R35.0 Frequency of micturition; L27.1 Localized skin eruption due to drugs and medicaments taken internally; T36.1X5A Adverse effect of cephalosporins and other beta-lactam antibiotics, initial encounter; Y92.230 Patient room in hospital as the place of occurrence of the external cause; G89.28 Other chronic postprocedural pain; M21.371 Foot drop, right foot; K57.90 Diverticulosis of intestine, part unspecified, without perforation or abscess without bleeding; I48.91 Unspecified atrial fibrillation; E78.00 Pure hypercholesterolemia, unspecified; F32.9 Major depressive disorder, single episode, unspecified; K42.9 Umbilical hernia without obstruction or gangrene; F41.9 Anxiety disorder, unspecified; R41.89 Other symptoms and signs involving cognitive functions and awareness; Z16.12 Extended spectrum beta lactamase (ESBL) resistance; Z96.0 Presence of urogenital implants; Z68.25 Body mass index [BMI] 25.0-25.9, adult; Z91.81 History of falling; Z79.82 Long term (current) use of aspirin; Z79.899 Other long term (current) drug therapy; R68.89 Other general symptoms and signs; I10 Essential (primary) hypertension; Z87.891 Personal history of nicotine dependence
CPT/HCPCS: 36415; 74018; 74177; 80048; 80053; 80202; 81001; 81003; 82378; 83605; 83690; 84153; 84484; 85025; 85610; 85730; 86850; 86900; 86901; 87040; 87077; 87086; 87181; 93005; 96365; 96366; 96367; 96375; 99283; 99284

== ENCOUNTER 2018-01-01 21:45 | Outpatient (CLI) | payer MEDICARE, OTHER ==
[2018-01-01 00:21] LABS: CALCIUM 8.1 mg/dL (8.5-10.3); CREATININE 0.8 mg/dL (0.6-1.2)
== END 2018-01-01 21:46 | disposition home or self-care (01) ==
LOC: LAB.R 21:45
PROVIDERS: ATTEND Family Medicine
DX: N40.1 Benign prostatic hyperplasia with lower urinary tract symptoms (principal)
CPT/HCPCS: 80048

== ENCOUNTER 2018-01-07 15:09 | Outpatient (CLI) | payer MEDICARE, OTHER | END 2018-01-07 15:10 | disposition critical access hospital (66) | LOC: EMS 15:09 | PROVIDERS: ATTEND Surgery | DX: M54.5 Low back pain (principal); R19.8 Other specified symptoms and signs involving the digestive system and abdomen | CPT/HCPCS: A0425; A0429 ==

== ENCOUNTER 2018-01-07 15:19 | Inpatient (IN) | payer MEDICARE, OTHER ==
[2018-01-07] MEDS ORDERED: SODIUM CHLORIDE 0.9% 1,000 ML IV ONE (15:27)
[2018-01-07] MEDS ORDERED: LORazepam 2 MG/ML VIAL IVP STA (15:28)
[2018-01-07] MEDS ORDERED: MORPHINE 10 MG/ML VIAL IVP STA (15:28)
[2018-01-07] MEDS ORDERED: PROMETHAZINE INJ 12.5 MG in SODIUM CHLORIDE 0.9% 50 ML IV STA (15:28)
[2018-01-07 15:57] LABS: BASOPHILS % (AUTO) 0.1 %; HGB - HEMOGLOBIN 12.9 g/dL (14.0-18.0); LYMPHOCYTES % (AUTO) 16.3 %; MEAN CORPUSCULAR HEMOGLOBIN 30.3 pg (27.0-31.0); MEAN CORPUSCULAR HGB CONC 33.9 g/dL (32.0-36.0); MEAN CORPUSCULAR VOLUME 89.6 fL (80.0-94.0); MEAN PLATELET VOLUME 6.7 fL (7.4-11.4); MONOCYTES % (AUTO) 1.1 %; NEUTROPHILS % (AUTO) 82.5 %; PLT - PLATELET COUNT 532 10^3/uL (130-450); RED BLOOD COUNT 4.26 10^6/uL (4.70-6.10); RED CELL DISTRIBUTION WIDTH 14.4 % (12.0-15.0)
[2018-01-07 15:59] LABS: ABNORMAL LYMPHS % (MANUAL) 0 %
[2018-01-07 16:00] LABS: ALBUMIN/GLOBULIN RATIO 0.6 (1.0-2.2); BILIRUBIN,TOTAL 0.4 mg/dL (0.2-1.0); CALCIUM 7.9 mg/dL (8.5-10.3); CREATININE 1.3 mg/dL (0.6-1.2); TOTAL PROTEIN 5.4 g/dL (6.7-8.2)
[2018-01-07 16:13] LABS: BAND NEUTROPHILS % (MANUAL) 31 %; LYMPHOCYTES # (MANUAL) 2.3 10^3/uL (1.5-3.5); LYMPHOCYTES % (MANUAL) 5 %; NEUTROPHILS # (MANUAL) 44.1 10^3/uL (1.5-6.6); NEUTROPHILS % (MANUAL) 64 %
[2018-01-07 16:14] LABS: DIFFERENTIAL COMMENT MANUAL DIFFERENTIAL; PLATELET ESTIMATE, MANUAL INCREASED (>450,000) (NORMAL); PLATELET MORPHOLOGY NORMAL APPEARANCE (NORMAL); RBC MORPHOLOGY (MULTIPLE) NORMAL APPEARANCE (NORMAL)
[2018-01-07] MEDS ORDERED: VANCOMYCIN INJ 1 GM in SODIUM CHLORIDE 0.9% 250 ML IV STA (16:24)
[2018-01-07] MEDS ORDERED: metroNIDAZOLE 500 MG/100 ML 500 MG/100 ML BAG IV STA (16:24)
[2018-01-07] MEDS ORDERED: ERTAPENEM 1 GM in SODIUM CHLORIDE 0.9% MINIBAG 100 ML IV STA (16:26)
[2018-01-07] MEDS ORDERED: SODIUM CHLORIDE 0.9% 1,600 ML IV ONE (16:27)
[2018-01-07] MEDS ORDERED: NALOXONE 0.4 MG/ML VIAL IVP STA (16:31)
--- NOTE | 2018-01-07 16:35 | CT Report ---
Reason: distened abd hypotensive tachy Procedure Date: 01/07/2018 Accession Number: [id number] / [id number] Procedure: CT - Abdomen/Pelvis W/O CPT Code: FULL RESULT: EXAM: CT ABDOMEN AND PELVIS EXAM DATE: 01/07/2018 04:11 PM. CLINICAL HISTORY: Distended abd hypotensive tachy. COMPARISONS: 12/26/2017. TECHNIQUE: Routine helical CT imaging was performed through the abdomen and pelvis. IV contrast: None. Enteric contrast: No. Reconstructions: Coronal and sagittal. In accordance with CT protocol optimization, one or more of the following dose reduction techniques were utilized for this exam: automated exposure control, adjustment of mA and/or KV based on patient size, or use of iterative reconstructive technique. FINDINGS: Lung Bases: Continued moderate right and small left pleural effusions with underlying consolidation, right more than left. Liver: Normal. No masses. Gallbladder/Bile Ducts: Diffusely increased intraluminal density, sludge versus secondary excretion of contrast. No ductal dilation. Spleen: Normal. Pancreas: Normal. Adrenal Glands: Normal. Kidneys: Normal. No masses or hydronephrosis. Peritoneal Cavity/Bowel: Marked distention of the colon with transverse colon measuring 11 cm in diameter, with multiple air-fluid levels. Distention extends to the proximal descending colon. No small bowel dilation. Trace free fluid, less than in the previous exam. No free air or lymphadenopathy. Unremarkable region of appendix. Pelvic Organs: Decompressed urinary bladder with Gutierrez catheter in place and small amount of air in the bladder. Vasculature: No aneurysms or other significant abnormality. Bones: Degenerative changes. Previous vertebroplasty of L3 and L4. Other: Bilateral inguinal hernias with fluid in the hernia sacs, but no definite bowel involvement. Previous bowel involvement with the small umbilical hernia has resolved. IMPRESSION: 1. Marked distention of the colon, most likely ileus, versus partial distal colon obstruction. 2. Continued bilateral pleural effusions with underlying consolidation, right more than left. 3. Resolution of bowel involvement and umbilical hernia; continued fluid in bilateral inguinal hernias. RADIA
[2018-01-07 17:34] LABS: BILIRUBIN,URINE NEGATIVE (NEGATIVE); GLUCOSE, URINE (UA) NEGATIVE (NEGATIVE); KETONES,URINE (UA) NEGATIVE (NEGATIVE); LEUKOCYTE ESTERASE, URINE NEGATIVE (NEGATIVE); NITRITE,URINE NEGATIVE (NEGATIVE); OCCULT BLOOD,URINE NEGATIVE (NEGATIVE); PH,URINE 5.5 PH (5.0-7.5); PROTEIN,URINE NEGATIVE (NEGATIVE); UROBILINOGEN,URINE 0.2 (NORMAL) E.U./dL (NORMAL)
[2018-01-07 17:39] LABS: CLARITY,URINE CLEAR (CLEAR)
--- NOTE | 2018-01-07 17:40 | ED Physician Documentation ---
History of Present Illness - Stated complaint Stated Complaint: ABD PX - Chief complaint Chief Complaint: Abd Pain - Additonal information Additional information: hx from pt, family, [facility] physician, and [facility] charge nurse documentaion 82 male Pmhx HTN HLD afib no anticoag except asa, COPD BPH chronic retention and hensley, umb hernia, OA osteoprosis, L spine fx and surgery, depression s/p L spine surgery at [facility] 12/18/17 then subsequently admitted to [facility] for post op ileus, UTI, afib, CHF - had surgical consult by Dr Todd dced back to [facility] no with abd distension and pain, dec bowel sounds, tachycardia since yesterday, hypotension and AMS today nausea and some vomiting, coffee grounds per transfer note ? when last BM has indwelling hensley pt denies [employer] CP on on percocet and morphine ER and tramadol urine cx from last admit was ESBL klebsiella and he is on levaquin still POLST = full code but both Dr Todd an Dr Apple note he would not want CPR or intubation if he codess, but POLST has not been updated yet, IVF ab enteric feedings pressors, transfusions OK per prior notes Review of Systems Constitutional: reports: Fatigue. denies: Fever Cardiac: denies: Chest pain / pressure, Palpitations Respiratory: denies: Dyspnea, Cough GI: reports: Abdominal Pain, Nausea, Vomiting, Hematemesis (maybe coffee grounds). denies: Diarrhea : reports: Other (hensley) Musculoskeletal: reports: Back pain Neurologic: reports: Generalized weakness Endocrine: denies: Easy bruising / bleeding Immunocompromised: denies: Immunocompromised PD PAST MEDICAL HISTORY - Past Medical History Past Medical History: Yes Cardiovascular: Hypertension, High cholesterol, Atrial fibrillation Respiratory: COPD Neuro: Other Endocrine/Autoimmune: None GI: Colon polyps, Other : Benign prostate hypertrophy, Retention, Frequency HEENT: Other Psych: Depression, Anxiety Musculoskeletal: Osteoarthritis, Osteoporosis, Other Derm: None - Past Surgical History Past Surgical History: Yes General: Colonoscopy Ortho: Spine surgery, Other HEENT: Cataracts - Present Medications Home Medications: Ambulatory Orders Medication Instructions Recorded Confirmed Aspirin 325 mg PO QDAC 12/31/12 12/27/17 Duloxetine HCl 20 mg PO DAILY 12/26/17 12/27/17 Furosemide 40 mg PO DAILY 12/26/17 12/27/17 Omeprazole [PriLOSEC] 20 mg PO DAILY 12/26/17 12/27/17 Ondansetron [Zofran Odt] 8 mg PO TID PRN 12/26/17 12/27/17 Polyethylene Glycol 3350 [Miralax] 17 gm PO DAILY 12/26/17 12/27/17 Potassium Chloride [Klor-Con M20] 20 meq PO DAILY 12/26/17 12/27/17 Senna [Senokot] 8.6 mg PO BID PRN 12/26/17 12/27/17 Spironolactone 50 mg PO BID 12/26/17 12/27/17 Tamsulosin HCl [Flomax] 0.8 mg PO DAILY 12/26/17 12/27/17 traMADol [Ultram] 50 mg PO QID PRN 12/26/17 12/27/17 Morphine ER 15 mg PO BID #6 tablet 12/29/17 Nicotine 21 mg Patch [Nicoderm] 1 patch TOP DAILY patch 12/29/17 Oxycodone HCl/Acetaminophen 1 each PO Q6H PRN #10 tablet 12/29/17 [Percocet 5-325 mg Tablet] levoFLOXacin [Levaquin] 750 mg PO QPM tablet 12/29/17 - Allergies Allergies/Adverse Reactions: Allergies Allergy/AdvReac Type Severity Reaction Status Date / Time cefepime Allergy Rash Verified 01/07/18 15:27 - Social History Does the pt smoke?: No Smoking Status: Never smoker Does the pt drink ETOH?: No Does the pt have substance abuse?: No - Immunizations Immunizations are current?: No Immunizations: TDAP >10years/unknown - POLST Patient has POLST: Yes POLST Status: Full Code (But after discussing the POLST form from [facility], and what he wants out of life, he does NOT want to be resuscitated if he has no pulse or pressure. But before he signs a new POLST, he wants his daughter from [place] to be here when he signs it. He would still like treatment for illness even if it's surgery, ICU, pressors, blood transfusions, and short term of 6 weeks of tube feeds if necessary. But no chest compression, no intubation for cardiopulmonary arrest.) PD ED PE NORMAL - Vitals Vital signs reviewed: Yes (tachy hypotensive) - General General: Other (alert able to answer questions) - HEENT HEENT: Atraumatic - Neck Neck: Supple, no meningeal sign - Cardiac Cardiac: RRR (tachy) - Respiratory Respiratory: No respiratory distress, Clear bilaterally - Abdomen Abdomen: Other (markedly distended, dec bowel sounds, reducible umbilical hernia, no inguinal hernia, swoolen foreskin but no phimosis or paraphomosis) - Rectal Rectal: Other (soft yellow occult blood positive) - Back Back: Other (sutures still in, no erythema or swelling) Results - Vitals Vitals: Vital Signs - 24 hr 01/07/18 15:18 Temperature 36 C L Heart Rate 113 H Respiratory 24 Rate Blood Pressure 95/70 O2 Saturation 98 Oxygen O2 Source Room air - Labs Labs: Laboratory Tests 01/07/18 01/07/18 01/07/18 15:42 15:42 15:42 WBC 46.4 H* RBC 4.26 L Hgb 12.9 L Hct 38.1 L MCV 89.6 MCH 30.3 MCHC 33.9 RDW 14.4 Plt Count 532 H MPV 6.7 L Neut # (Auto) Not Reportable Lymph # (Auto) Not Reportable Camden # (Auto) Not Reportable Eos # (Auto) Not Reportable Baso # (Auto) Not Reportable Absolute Nucleated RBC Not Reportable Total Counted 100 Band Neuts % (Manual) 31 H Abnorm Lymph % (Manual) 0 Nucleated RBC % Not Reportable Neutrophils # (Manual) 44.1 H Lymphocytes # (Manual) 2.3 Monocytes # (Manual) 0.0 Eosinophils # (Manual) 0.0 Basophils # (Manual) 0.0 Differential Comment MANUAL DIFFERENTIAL Manual Slide Review Indicated WBC Morphology TOXIC GRANULATION Platelet Estimate INCREASED (>450,000) Platelet Morphology NORMAL APPEARANCE RBC Morph Micro Appear NORMAL APPEARANCE Sodium 122 L Potassium 5.0 Chloride 90 L Carbon Dioxide 21 Anion Gap 11.0 BUN 40 H Creatinine 1.3 H Estimated GFR (MDRD) 53 L Glucose 134 H Lactic Acid Calcium 7.9 L Total Bilirubin 0.4 AST 31 ALT 21 Alkaline Phosphatase 94 B-Natriuretic Peptide 109 H Total Protein 5.4 L Albumin 2.0 L Globulin 3.4 Albumin/Globulin Ratio 0.6 L Lipase 24 01/07/18 15:42 WBC RBC Hgb Hct MCV MCH MCHC RDW Plt Count MPV Neut # (Auto) Lymph # (Auto) Camden # (Auto) Eos # (Auto) Baso # (Auto) Absolute Nucleated RBC Total Counted Band Neuts % (Manual) Abnorm Lymph % (Manual) Nucleated RBC % Neutrophils # (Manual) Lymphocytes # (Manual) Monocytes # (Manual) Eosinophils # (Manual) Basophils # (Manual) Differential Comment Manual Slide Review WBC Morphology Platelet Estimate Platelet Morphology RBC Morph Micro Appear Sodium Potassium Chloride Carbon Dioxide Anion Gap BUN Creatinine Estimated GFR (MDRD) Glucose Lactic Acid 2.4 H Calcium Total Bilirubin AST ALT Alkaline Phosphatase B-Natriuretic Peptide Total Protein Albumin Globulin Albumin/Globulin Ratio Lipase - Rads (name of study) CT AP Radiology: See rad report (marked distension colon likely ileus vs partial colon obstruction, cecile pleural effusions R > L, fluid containing inguinal hernias, no bowel in umbilical hernia, no ortho hardware in spine) CTA chest Radiology: See rad report (no dissection, small parallel linear abn artic root believed to be artifact coul get echo if still concerned, small RLL PE, effsuions, infiltrate vs atelectasis vs infarct) CTA AP Radiology: See rad report (no mesenteric ischemia, no perf, wall thickening of colon in pelvis, infiltrate of prescral fat and a fluid collection approx 3.5 cm possibly a perirectal abscess, ) PD MEDICAL DECISION MAKING - ED course ED course: septic shock gave 30 cc/kg IVF and invanz vanco flagyl BP better still tachy CTAP neg for sorce - pleural effusion and ileus per rad read surgical site s infection neg UA major abnormality is abd pain distension and NV pt had to be sedated for CT as he is terrified of the machine 2/2 prior bad experience, takes morphine and oxy already, only gave morphine 2 and ativan 1 but he was diff to arouse req narcan, never needed resp support, rechecks = improved mental status with narcan then back to minimally responsive, maintaining airway occult blood +, hx a fib, consider ischemia so back for angio called surgeon Dr Contreras at 1830 to consult re possible abd source for sepsis - he advises to wait for CTA, continue resusc as above, admit to hospitalist with surgical consult as pt not stable for OR of surgical source, he did evaluate the pt in person including rectal exam, reviewing all images and discussing with rads on phone - he does not think the pt has a perirectal abscess based on exam so called hospitalist Dr Mendoza who will admit pt since no surgery tonight will discuss lovenox for the PE - but also with GIB so maybe heparin which can be stopped and reversed would be better - d/w Dr Mendoza he prefers heparin and will order it - likely 2/2 surgery and immobilization inpt and SNF - but also consider septic pulm emboli maybe get an echo appears pt has a bone marrow bx with his spine surgery - report states neg for carcinoma but also states worrisome for low grade B cell lymphoproliferative disorder with ddx including CLL - so perhaps that explains some of the marked leukocytosis ordered EKG for admit - pt heading to inpt now - nurse will advise ICU to get it - Sepsis Event Vital Signs: Vital Signs - 24 hr 01/07/18 15:18 Temperature 36 C L Heart Rate 113 H Respiratory 24 Rate Blood Pressure 95/70 O2 Saturation 98 Oxygen O2 Source Room air Departure - Departure Disposition: 66 [facility] DC/Xfer Clinical Impression: Abdominal distension, Renal insufficiency Sepsis Qualifiers: Sepsis type: sepsis due to unspecified organism Qualified Code(s): A41.9 - Sepsis, unspecified organism Pulmonary embolism Qualifiers: Pulmonary embolism type: other Chronicity: acute Acute cor pulmonale presence: without acute cor pulmonale Qualified Code(s): I26.99 - Other pulmonary embolism without acute cor pulmonale Leukocytosis Qualifiers: Leukocytosis type: bandemia Qualified Code(s): D72.825 - Bandemia Discharge Date/Time: 01/07/18 21:10
[2018-01-07] MEDS ORDERED: IOPAMIDOL-300 100 ML VIAL ONE (18:15)
[2018-01-07] MEDS ORDERED: IOPAMIDOL-300 100 ML VIAL IVP ONE (18:57)
--- NOTE | 2018-01-07 20:04 | CT Report ---
Reason: afib abd pain distension GIB sepsis ? ischemia Procedure Date: 01/07/2018 Accession Number: [id number] / [id number] Procedure: CT - Abdomen/Pelvis Angio CPT Code: FULL RESULT: EXAM: CT ANGIOGRAM CHEST, ABDOMEN AND PELVIS EXAM DATE: 01/07/2018 06:51 PM. CLINICAL HISTORY: Afib abd pain distension GIB sepsis ? ischemia. COMPARISONS: Abdomen pelvis CT of this same date. Also abdomen and pelvis CT dated 12/26/2017. TECHNIQUE: Routine axial helical CT angiographic imaging was performed through the chest, abdomen, and pelvis. IV Contrast: ISOVUE 300 100mL. Reconstructions: Coronal, sagittal, and 3D MIP reconstructions of the aorta. In accordance with CT protocol optimization, one or more of the following dose reduction techniques were utilized for this exam: automated exposure control, adjustment of mA and/or KV based on patient size, or use of iterative reconstructive technique. FINDINGS: Vascular Structures: Mild dilation of ascending thoracic aorta measuring 3.7 cm. Circumferential or parallel collections of contrast are seen at the aortic root, probably related to motion artifact. Otherwise unremarkable aorta. No aneurysm, definite dissection, or significant atherosclerotic disease of the thoracic aorta, abdominal aorta, or iliac arteries. The visualized mesenteric, and solid organ vascular structures are also within normal limits. Pulmonary arteries generally well opacified; suspicion of small segmental to subsegmental emboli as exemplified on series 4 image 95 in the right base. Small subsegmental vessels in the bases are not opacified and may be involved. No large or central lesions. Lungs/Pleura: Large right and small to moderate left pleural effusions with underlying atelectasis and consolidation, right more than left. Consolidation may contribute to poor opacification of small vessels. Mild atelectasis versus dependent infiltrate in right upper lobe. Clear left upper lobe. No pneumothorax. Mediastinum: Borderline cardiomegaly. No pericardial effusion. At least one vessel coronary artery calcification. No lymphadenopathy. Fluid-filled esophagus most likely due to reflux. Abdominal Organs: See separate report. Peritoneal Cavity: See separate report; large bowel dilation with trace ascites. Pelvic Organs: Decompressed urinary bladder with Gutierrez catheter in place. Mild diffuse wall thickening of distal sigmoid and rectum measuring about 9 mm with apparent thickening at the level of the anus. Hazy infiltration of presacral fat with fluid collections at the level of the anus measuring about 3.5 x 2.0 cm on each side, extending to the right and to the left. Bones: Degenerative changes and other chronic findings. Other: Fluid in bilateral inguinal hernias. IMPRESSION: 1. Essentially negative aortic angiogram and branch vessels. Apparent parallel tracks at the aortic root are believed artifactual due to motion. If clinical suspicion of disease at this level is high, repeat gated study or echocardiogram may be helpful. 2. Small amount of pulmonary emboli in right lung base; associated consolidation may contribute to this appearance. 3. Mild diffuse wall thickening in the rectum with retrorectal and perianal infiltration and fluid collections suspicious for abscess. Correlation with physical exam may be helpful. 4. Large right and small left pleural effusions with associated atelectasis and consolidation, right more than left. 5. Other chronic or incidental findings. RADIA The above findings were discussed with Hallie Preston by Dr. Fady Conti at 20:02 hrs on 01/07/18.
[2018-01-07] MEDS ORDERED: SODIUM CHLORIDE 0.9% 2,500 ML IV SCH (20:27)
[2018-01-07] MEDS ORDERED: HYDROcod/ACETAM 5/325 MG TABLET PO PRN (20:27)
[2018-01-07] MEDS ORDERED: ACETAMINOPHEN 325 MG TABLET PO PRN (20:27)
[2018-01-07] MEDS ORDERED: PROMETHAZINE 25 MG/1 ML VIAL IM PRN (20:27)
[2018-01-07] MEDS ORDERED: VANCOMYCIN PER PHARMACY 0.1 GM in SODIUM CHLORIDE 0.9% 250 ML IV STA (20:27)
--- NOTE | 2018-01-07 20:32 | CONSULTATION NOTE ---
Referring Provider Name of Referring Provider:: Dr. Preston Consult Date: 01/07/18 Chief Complaint - Chief Complaint Chief Complaint: sepsis and abdominal distention History of Present Illness - Admitted From Admitted From:: ER - History Obtained From Records Reviewed: yes History obtained from: family, ER MD, records Exam Limitations: pt is obtunded, difficult to arouse, and unable to give a hx - History of Present Illness HPI Comment/Other: 82 yo male with complex PMH including lower back surgery 2 weeks ago at [facility] for spinal stenosis with findings on bx concerning for B cell lymphoma, recovering at [facility], with recent admission 1 week ago for weakness, abd pain, N/V, thought due to acute urinary retention and ileus from narcotic med ications. He was treated with a course of levofloxacin for ESBL producing K. pneumonia in his urine. He was noted to have increasing abdominal distention and edema over the past several days prompting a reevaluation in the [facility] ER today. According to his , he has been moving his bowels but apparently did not c/o abd pain; there has been no melena/BRBPR or fever, N/V. He has had progressive major wt loss over the past year or so. He has had a favorable colonoscopy in the past, date uncertain. History - Past Medical History Cardiovascular: reports: Hypertension, High cholesterol, Atrial fibrillation Respiratory: reports: COPD Neuro: reports: Other Endocrine/Autoimmune: reports: None GI: reports: Colon polyps, Other : reports: Benign prostate hypertrophy, Retention, Frequency HEENT: reports: Other Psych: reports: Depression, Anxiety Musculoskeletal: reports: Osteoarthritis, Osteoporosis, Other Derm: reports: None MRSA Hx?: No - Past Surgical History General: reports: Colonoscopy Ortho: reports: Spine surgery, Other HEENT: reports: Cataracts - Family & Social History Family History Comment/Other: Mom at age 52 of an embolic brain stroke. Dad at age 54 of an enlarged heart. No siblings. 2 daughters. One lives in [place] and is an RN in the clinic. The other daughter lives near [place] and is a retiring master police detective. He describes her having as some type of congenital anomaly near the subclavian artery requiring surgery. Social History Notes: He was born in [place] and went on to then live in [place]. While in [place] he ended up learning how to fly and join the [employer]. 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 He ended up living in [facility] and got tired of the congestion and came to [facility] 15 years ago. He has been to his second for 26 years. While he is always had back pain, he has been independent. Able to do his activities of daily living. It was not until the last year that he has been steadily losing ground with the weight loss, went from using a cane to then a walker by October and November 2017. When he started falling in November 2017 he ended up living in a group home facility. The plan is for him to go home after he gets enough strength. He started smoking at the age of 16 and quit before he met his second . She thinks he stopped smoking 1 pack per day around 1990. He did smoke a pipe for a couple of years. He also had a problem with alcohol abuse. But when it started affecting his job, and the possibility of losing his pension, he went to a "[employer]" 20 years ago and is never drank since. He denies any other recreational substance abuse. - Substance History Use: Uses substance without health or social issues: NONE - POLST Patient has POLST: Yes POLST Status: Full Code (But after discussing the POLST form from [facility], and what he wants out of life, he does NOT want to be resuscitated if he has no pulse or pressure. But before he signs a new POLST, he wants his daughter from [place] to be here when he signs it. He would still like treatment for illness ev en if it's surgery, ICU, pressors, blood transfusions, and short term of 6 weeks of tube feeds if necessary. But no chest compression, no intubation for cardiopulmonary arrest.) Meds/Allgy - Home Medications Home Medications: Ambulatory Orders Medication Instructions Recorded Confirmed Aspirin 325 mg PO QDAC 12/31/12 12/27/17 Duloxetine HCl 20 mg PO DAILY 12/26/17 12/27/17 Furosemide 40 mg PO DAILY 12/26/17 12/27/17 Omeprazole [PriLOSEC] 20 mg PO DAILY 12/26/17 12/27/17 Ondansetron [Zofran Odt] 8 mg PO TID PRN 12/26/17 12/27/17 Polyethylene Glycol 3350 [Miralax] 17 gm PO DAILY 12/26/17 12/27/17 Potassium Chloride [Klor-Con M20] 20 meq PO DAILY 12/26/17 12/27/17 Senna [Senokot] 8.6 mg PO BID PRN 12/26/17 12/27/17 Spironolactone 50 mg PO BID 12/26/17 12/27/17 Tamsulosin HCl [Flomax] 0.8 mg PO DAILY 12/26/17 12/27/17 traMADol [Ultram] 50 mg PO QID PRN 12/26/17 12/27/17 Morphine ER 15 mg PO BID #6 tablet 12/29/17 Nicotine 21 mg Patch [Nicoderm] 1 patch TOP DAILY patch 12/29/17 Oxycodone HCl/Acetaminophen 1 each PO Q6H PRN #10 tablet 12/29/17 [Percocet 5-325 mg Tablet] levoFLOXacin [Levaquin] 750 mg PO QPM tablet 12/29/17 - Allergies Allergies/Adverse Reactions: Allergies Allergy/AdvReac Type Severity Reaction Status Date / Time cefepime Allergy Rash Verified 01/07/18 15:27 Review of Systems - All Other Systems All Other Systems: reports: Other (unobtainable) Exam - Vital Signs Reviewed Vital Signs: Yes Vital Signs: Vital Signs x48h Temp Pulse Resp BP Pulse Ox 01/07/18 19:00 115 H 19 99 01/07/18 18:30 116 H 19 93 01/07/18 18:00 115 H 20 105/86 H 97 01/07/18 17:30 116 H 21 97 01/07/18 17:24 116 H 21 97 01/07/18 16:54 119 H 22 90 L 01/07/18 16:24 119 H 17 99/62 01/07/18 16:00 120 H 91 L 01/07/18 15:26 114 H 24 104/54 L 98 01/07/18 15:18 36 C L 113 H 24 95/70 98 - Physical Exam General Appearance: positive: No acute distress, Lethargic Eyes Bilateral: positive: Conjunctivae nml, No scleral icterus ENT: positive: Dry mucous membranes Neck: positive: Nml inspection, No JVD, Trachea midline. negative: Lymphadenopathy (R), Lymphadenopathy (L) Respiratory: positive: Chest non-tender, No respiratory distress, Breath sounds nml. negative: Wheezes, Rales, Rhonchi Cardiovascular: positive: Other (distant heart sounds) Abdomen: positive: Tenderness (he has a tender reducible umbilical hernia; abd ow non-tender, soft, no peritoneal signs), Abnml bowel sounds (hypoactive). negative: No distention (marked abd distention), Guarding, Rebound, Hep atomegaly, Splenomegaly, Mass Rectal: positive: Non-tender, Enlarged prostate, Other (good exam; no evidence of focal tenderness, mass, or perirectal abscess; liquid brown green stool is expressed during exam). negative: Black stool, Bloody stool, Tenderness, Mass, Tender prostate Back: positive: Other (pitting edema presacrally) Skin: positive: Other (cool, dry extremities) Extremities: positive: Non-tender, Pedal edema, Other (edema of both upper and lower extremities, cw anasarca). negative: Calf tenderness Conclusion/Plan - Diagnosis Diagnosis: 82 yo with apparent septic shock of unclear etiology. Concurrent additional potential diagnoses include pneumonia, Oglevie's syndrome (colonic pseudoobstruction), possible underlying lymphoma, CHF, anasarca. There is no evidence of an acute abdomen or obvious source of intraabdominal sepsis at present. - Plan Plan: Agree with admission, bowel rest, supportive measures, empiric therapy with broad spectrum antibiotics; will follow. Thanks, - Lab Results Fish Bones: 01/07/18 15:42 01/07/18 15:42 Other Lab Results: Lactate 2.4; alb 2.0; lft's nl; lipase nl; UA neg x SG 1.020. - Diagnostic Imaging Results Diagnostic Imaging Results: positive: Final report reviewed, Discussed with radiologist, Read independently Diagnostic Imaging Results Comments: CHEST CT: RLL atelectasis/infiltrate/effusion; small PE ABD/PELVIS CT: dilated proximal colon, possible thickening of descending, sigmoid colon and rectum; possible bilateral perirectal abscesses; small amt free fluid in abdomen; no free air or intraabdominal abscess; gallbladder with sludge, ow neg. - EKG Results EKG Interpreted Independently: No
[2018-01-07 21:07] LABS: WHITE BLOOD COUNT 46.4 x10^3/uL (4.8-10.8)
[2018-01-07] MEDS ORDERED: VANCOMYCIN PER PHARMACY 0.1 GM in SODIUM CHLORIDE 0.9% 250 ML IV SCH (21:53)
--- NOTE | 2018-01-07 22:29 | HISTORY & PHYSICAL EXAMINATION ---
Chief Complaint - Chief Complaint Chief Complaint: Abdominal distension History of Present Illness - Admitted From Admitted From:: Emergency Department - History Obtained From Records Reviewed: Yes History obtained from: Patients as patient had decreased level of consciousness Exam Limitations: Patient septic with lethargy and unable to provide history - History of Present Illness HPI Comment/Other: Patient is a very unfortunate 82-year-old gentleman with an extensive past medical history which includes hypertension, hyperlipidemia, chronic atrial fibrillation, beta cell lymphoproliferative disorder awaiting evaluation with the [facility] clinic on February 06, COPD, BPH with recent urinary retention and a chronic Gutierrez catheter, recent spinal surgery with kyphoplasty of L3 and L4 and laminectomy of L2 through L5 in December and recent hospitalization at [facility] on 12/26/2017 discharged back to [facility] on 12/29/2017 after being treated for a small bowel ileus and ESBL producing Klebsiella pn eumonia UTI. He was brought into the emergency department today with increasing abdominal distention. The patient has had a major decline in his health over the last 2 years which is beautifully documented in Dr. Russell's history and physical dictated on 12/26/2017 please refer to that. According to the patient's since his discharge from [facility] back over to [facility] initially the patient was doing much better. He was starting to participate more with physical therapy he had been having increasing bowel movements. She states however over the last 4 days the patient has been complaining of increasing pain in his back which is been gradually getting worse. She states that he has been increasingly drowsy and over the last 2 days was particularly quiet and less interactive which is not his norm. She states he was able to do less and less with physical therapy the last 2 days. She states that his last bowel movement was 3 days ago. She states that yesterday evening she began to notice that he had increasing swelling in his legs and his abdomen was becoming distended. She states that he did not have any vomiting nor did he complain of any abdominal pain but he was increasingly drowsy. She states that when she came to see him this morning his abdominal distention was much worse and he was very difficult to arouse. She also noted that his right arm was swollen. He was also having increasing nausea and vomiting. The patient's states that the physician in charge of [facility] Dr. Gallagher saw the patient today and noted the abdominal distention therefore he sent him to the emergency department. The patient was not able to provide any history due to his decreased level of consciousness and what appears to be metabolic encephalopathy. On presentation to the emergency department the patient was afebrile however he was tachycardic with a heart rate up to 120, tachypneic with respiratory rate of 24 and borderline hypotensive with blood pressures in the 90s. The patient underwent routine lab work which revealed a leukocytosis of 46.4 with a 31% bandemia, a creatinine that was elevated at 1.3 from a baseline of 0.8 just 1 week ago. An elevated lactic acid of 2.4 and a sodium of 122. The patient was encephalopathic and difficult to arouse and was assumed to be septic. The emergency room physician was concerned given the patient's abdominal distention, nausea and vomiting that the source was intra-abdominal therefore she got a CT of his abdomen which revealed marked distention of the colon most likely from ileus or partial distal colon obstruction. The patient was also found to have bilateral pleural effusions with underlying consolidation right more than left. The patient also underwent a CT angiogram of his abdomen which was negative for mesenteric ischemia but did reveal a small amount of pulmonary emboli in the rig ht base as well as diffuse wall thickening in the rectum with retrorectal and perianal infiltration and fluid collections suspicious for abscess. Given the suspicion for a perirectal abscess general surgery was consulted and Dr. Contreras did examine the patient in the emergency department. He did not feel that this was a rectal abscess as there was no rectal abscess found on examination and the patient did not have significant pain on rectal examination. The patient was admitted for severe sepsis with presumed source being a healthcare associated pneumonia. The patient was given ertapenem and vancomycin along with Flagyl in the emergency department. Blood cultures were drawn before giving antibiotics. Given the severity of the patient's condition he was admitted to the intensive care unit. History - Past Medical History Cardiovascular: reports: Hypertension, High cholesterol, Atrial fibrillation Respiratory: reports: COPD Neuro: reports: Other Endocrine/Autoimmune: reports: None GI: reports: Colon polyps, Other : reports: Benign prostate hypertrophy, Retention, Frequency HEENT: reports: Other Psych: reports: Depression, Anxiety Musculoskeletal: reports: Osteoarthritis, Osteoporosis, Other Derm: reports: None MRSA Hx?: No Other Past Medical History: Beta cell lymphoproliferative disorder - Past Surgical History General: reports: Colonoscopy Ortho: reports: Spine surgery, Other HEENT: reports: Cataracts - Family & Social History Family History Comment/Other: Mom at age 52 of an embolic brain stroke. Dad at age 54 of an enlarged heart. No siblings. 2 daughters. One lives in [place] and is an RN in the clinic. The other daughter lives near [place] and is a retiring mill stenciler. He describes her having as some type of congenital anomaly near the subclavian artery requiring surgery. Social History Notes: He was born in [place] and went on to then live in [place]. While in [place] he ended up learning how to fly and join the [employer] 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 He ended up living in [facility] and got tired of the congestion and came to [facility] 15 years ago. He has been to his second for 26 years. While he has always had back pain, he has been independent. Able to do his activities of daily living. It was not until the last year that he has been steadily losing ground with the weight loss, went from using a cane to then a walker by October and November 2017. When he started falling in November 2017 he ended up living in a half-way facility. The plan is for him to go home after he gets enough strength. He started smoking at the age of 16 and quit before he met his second . She thinks he stopped smoking 1 pack per day around 1990. He did smoke a pipe for a couple of years. He also had a problem with alcohol abuse. But when it started affecting his job, and the possibility of losing his pension, he went to a "dry farm" 20 years ago and is never drank since. He denies any other recreational substance abuse. - Substance History Use: Uses substance without health or social issues: NONE - POLST Patient has POLST: Yes POLST Status: Full Code (But after discussing the POLST form from [facility], and what he wants out of life, he does NOT want to be resuscitated if he has no pulse or pressure. But before he signs a new POLST, he wants his daughter from [place] to be here when he signs it. He would still like treatment for illness even if it's surgery, ICU, pressors, blood transfusions, and short term of 6 weeks of tube feeds if necessary. But no chest compression, no intubation for cardiopulmonary arrest.) Meds/Allgy - Home Medications Home Medications: Ambulatory Orders Medication Instructions Recorded Confirmed Aspirin 325 mg PO QDAC 12/31/12 12/27/17 Duloxetine HCl 20 mg PO DAILY 12/26/17 12/27/17 Furosemide 40 mg PO DAILY 12/26/17 12/27/17 Omeprazole [PriLOSEC] 20 mg PO DAILY 12/26/17 12/27/17 Ondansetron [Zofran Odt] 8 mg PO TID PRN 12/26/17 12/27/17 Polyethylene Glycol 3350 [Miralax] 17 gm PO DAILY 12/26/17 12/27/17 Potassium Chloride [Klor-Con M20] 20 meq PO DAILY 12/26/17 12/27/17 Senna [Senokot] 8.6 mg PO BID PRN 12/26/17 12/27/17 Spironolactone 50 mg PO BID 12/26/17 12/27/17 Tamsulosin HCl [Flomax] 0.8 mg PO DAILY 12/26/17 12/27/17 traMADol [Ultram] 50 mg PO QID PRN 12/26/17 12/27/17 Morphine ER 15 mg PO BID #6 tablet 12/29/17 Nicotine 21 mg Patch [Nicoderm] 1 patch TOP DAILY patch 12/29/17 Oxycodone HCl/Acetaminophen 1 each PO Q6H PRN #10 tablet 12/29/17 [Percocet 5-325 mg Tablet] levoFLOXacin [Levaquin] 750 mg PO QPM tablet 12/29/17 - Allergies Allergies/Adverse Reactions: Allergies Allergy/AdvReac Type Severity Reaction Status Date / Time cefepime Allergy Rash Verified 01/07/18 15:27 Review of Systems - Other Findings Other Findings: Patient is unable to provide a conference of review of systems due to a decreased level of consciousness from ongoing sepsis. The patient's history is provided by his and is stated above in the HPI. Prior Level of Functionality: While he has always had back pain, he has been independent. Able to do his activities of daily living. It was not until the last year that he has been steadily losing ground with the weight loss, went from using a cane to then a walker by October and November 2017. When he started falling in November 2017 he ended up living in a half-way facility where he has been since trying to get physical therapy to get back to independent living. Exam - Vital Signs Reviewed Vital Signs: Yes Vital Signs: Vital Signs x48h Temp Pulse Resp BP Pulse Ox 01/07/18 20:30 36.2 C L 116 H 18 103/66 92 01/07/18 20:00 36.3 C L 109 H 19 98/90 H 94 01/07/18 19:30 36.2 C L 110 H 18 105/86 H 95 01/07/18 19:00 115 H 19 99 01/07/18 18:30 116 H 19 93 01/07/18 18:00 115 H 20 105/86 H 97 01/07/18 17:30 116 H 21 97 01/07/18 17:24 116 H 21 97 01/07/18 16:54 119 H 22 90 L 01/07/18 16:24 119 H 17 99/62 01/07/18 16:00 120 H 91 L 01/07/18 15:26 114 H 24 104/54 L 98 01/07/18 15:18 36 C L 113 H 24 95/70 98 - Physical Exam General Appearance: positive: Moderate distress, Lethargic, Other (Responds to tactile stimuli and voice but only with grimacing and moaning. Not following commands.) Eyes Bilateral: positive: Normal inspection, PERRL, EOMI, No lid inflammation, Conjunctivae nml, No scleral icterus ENT: positive: ENT inspection nml, Pharynx nml, Dry mucous membranes. negative: Purulent nasal drainage, Pharyngeal erythema, Oral lesions Neck: positive: Nml inspection, Thyroid nml, No JVD, Trachea midline. negative: Lymphadenopathy (R), Lymphadenopathy (L), Stiff neck, Carotid bruit, Tracheal deviation Respiratory: positive: Chest non-tender, No respiratory distress, Rales (Mild at bases), Rhonchi (Bases right worse than left). negative: Wheezes Cardiovascular: positive: No murmur, No gallop, Irregularly irregular, Tachycardia, Systolic murmur Peripheral Pulses: positive: 2+ Abdomen: positive: No organomegaly, Tenderness (Patient grimaces with palpation of his abdomen, diffuse), Abnml bowel sounds (Decreased bowel sounds), Other (Abdomen is distended but soft with no rebound or guarding. There is no peritoneal signs). negative: Guarding, Rebound Rectal: positive: Non-tender, Stool - heme POS Back: positive: Other (Patient has dressing over surgical site in the lumbar spine. On removal of dressing there is no evidence of erythema or drainage nor is there is swelling to suggest the patient has a infection of the surgical site.). negative: CVA tenderness (R), CVA tenderness (L) Skin: positive: Dry, Other (Patient has skin breakdown on his right arm with area concerning for pressure wound near his right wrist). negative: Cyanosis, Diaphoresis Extremities: positive: Non-tender, Full ROM, Nml appearance, Pedal edema (Bilateral dependent edema) Neurologic/Psychiatric: positive: Other (Difficult to obtain a thorough neurologic exam. According to the patient's the patient continues to have weakness in his right foot which was present prior to his spinal surgery. The patient otherwise is moving his extremities but he is lethargic and responding to tactile and verbal stimuli. His response is limited to moaning. He is not opening his eyes. He is not following any commands.) Conclusion/Plan - Problem List (1) Severe sepsis Conclusion/Plan: Patient presented to the emergency department with severe sepsis with heart rate in the 120s, respiratory rate of 24, hypotension and leukocytosis of 46.4 with a 31% bandemia. The patient also had lethargy due to metabolic encephalopathy, acute kidney injury and an elevated lactic acid of 2.4 on presentation. The patient was recently hospitalized for UTI with ESBL producing Klebsiella pneumonia. The patient's urinalysis on presentation however was negative. The patient presented with abdominal distention, abdominal pain, back pain, nausea a nd vomiting. Initially the source of the patient's infection was thought to likely be an intra-abdominal source. Patient underwent CT of his abdomen and pelvis as well as CT angiogram of chest abdomen and pelvis. The imaging revealed a partial distal colonic obstruction, consolidation of the lower lungs and right sided pulmonary emboli. Given these findings likely source is healthcare associated pneumonia given the patient's recent hospitalization. However the patient also had recent spinal surgery and the pulmonary emboli could be septic emboli. It is therefore also imperative that we rule out possibility of spinal abscess as well as possibility of endocarditis. The patient also was found to have possible rectal abscess with CT however surgery was consulted and ruled out the possibility of a rectal abscess at this time. Plan: Treat with broad-spectrum IV antibiotics vancomycin and meropenem IV fluids Blood cultures Echocardiogram MRI lumbar spine Monitor closely in the intensive care unit Central line placement (2) HCAP (healthcare-associated pneumonia) Conclusion/Plan: The patient presented with severe sepsis with unclear source. Currently the only possible source that has been found is pneumonia. The patient's CT abdomen pelvis revealed bilateral pleural effusions with underlying consolidation right more than left. Given that the patient has been bedbound on narcotics and dealing with the pain he was at high risk for pneumonia. He has had likely atelectasis and may have developed pneumonia which could have been the cause of his presenting sepsis. The patient is only mildly hypoxic and was tachypneic on presentation. The patient has not been having fevers. The patient has not been having significant respiratory distress. The patient was recently hospitalized and therefore will be treated as a healthcare associated pneumonia. Plan IV antibiotics with vancomycin and meropenem for broad coverage IV fluids Supplemental oxygen Blood cultures (3) Bowel obstruction Conclusion/Plan: Patient had a recent admission where he had a small bowel obstruction secondary to ileus which appeared to have resolved. Now patient has had no bowel movement for the last 3 days and has been having increasing abdominal distention, abdominal pain and nausea and vomiting. The patient's CT of the abdomen reveals a distended colon concerning for likely ileus versus partial distal colon obstruction. Most likely this is secondary to a ileus given his risk factors of having had a recent spinal surgery, being primarily bedbound with decreased ambulation, being on chronic opioids and with ongoing sepsis. Plan: IV fluids N.p.o. Surgical consult Limit IV narcotics IV antiemetics Once patient is improved encourage ambulation. Qualifiers: Intestinal obstruction type: unspecified ileus Qualified Code(s): K56.7 - Ileus, unspecified (4) Pulmonary embolism Conclusion/Plan: The patient had a recent spinal surgery in December and has been primarily bedbound since the surgery limited to a bed and wheelchair with limited ability to participate in physical therapy. The patient is very high risk for a pulmonary embolism and CT angiogram done of the abdomen shows small right sided pulmonary emboli. Patient will be treated with anticoagulation. For now we will place him on IV heparin infusion in case patient needs any surgical intervention. Patient will get an echocardiogram to look for right heart strain. There is also possibility of these being septic emboli given the patient is septic and echocardiogram will be needed to rule out endocarditis. Qualifiers: Pulmonary embolism type: other Chronicity: acute Acute cor pulmonale presence: without acute cor pulmonale Qualified Code(s): I26.99 - Other pulmonary embolism without acute cor pulmonale (5) Metabolic encephalopathy Conclusion/Plan: The patient appears to have metabolic encephalopathy which is likely secondary to sepsis. Although the patient is also on narcotics which could also be contributing to his lethargy. For now while patient is lethargic his narcotics will be held. We will treat his sepsis with IV antibiotics and fluids. We will continue to monitor the patient's encephalopathy. If the patient continues to have lethargy despite treatment we will need to consider getting a CT of his head. (6) AGUEDA (acute kidney injury) Conclusion/Plan: On presentation to the emergency department the patient does have acute kidney injury with a creatinine of 1.3 which is elevated from his baseline of 0.6. Patient's renal failure appears to be prerenal secondary to dehydration from sepsis. Plan: IV fluids Monitor creatinine Avoid nephrotoxic agents Hold diuretics (7) Hyponatremia Conclusion/Plan: The patient presents with hyponatremia. His sodium on presentation is 122 which is significantly below his baseline. The patient appears to have hypovolemic hyponatremia as he is very dry on exam and patient and hypotensive on presentation. This is likely secondary to sepsis. Patient will be given IV fluids and we will continue to monitor his sodium. (8) B-cell lymphoproliferative disorder Conclusion/Plan: The patient underwent a bone marrow biopsy in December when he had his spinal surgery. 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 The patient is to follow-up in the [facility] clinic on February 06 for initial assessment. The patient has a leukocytosis of 46.4 on presentation however speaking to the lab there are no abnormal cells or blasts and the differential looks very much like inflammation or infection with a significant bandemia. For now plan will be for patient to follow-up as an outpatient with oncology regarding his bone marrow biopsy. Patient's current leukocytosis appears to be secondary to sepsis and not related to his lymphoproliferative disorder. (9) Chronic atrial fibrillation Conclusion/Plan: The patient has a history of chronic atrial fibrillation. He is not on Coumadin nor is he on anything for rate control. On presentation to the emergency department the patient is tachycardic with heart rate in the 120s. This appears to be a normal response to his sepsis rather than A. fib with rapid ventricular rate. We will continue to monitor the patient on telemetry and patient will get an echocardiogram while he is hospitalized. The patient will be started on anticoagulation given his finding of pulmonary embolism and there will need to be further discussion with his primary care physician as to whether the patient should be on chronic anticoagulation with his history of A. fib. (10) Obstructive uropathy Conclusion/Plan: The patient recently has developed obstructive uropathy for which he has an indwelling Gutierrez catheter. The patient was recently admitted with urinary tract infection growing ESBL producing Klebsiella pneumonia. Patient's obstructive uropathy is likely secondary to his BPH but also likely worsened due to his need for chronic opioids due to his back pain. We will continue with his chronic Gutierrez catheter. (11) Status post laminectomy Conclusion/Plan: Surgery done 12/18/2017 Given the patient's ongoing sepsis we will get an MRI of the patient's lumbar spine to rule out a spinal abscess although given the patient's symptoms this does appear to be less likely. Once patient is recovering from sepsis we will need to restart physical therapy. Patient will be continued on narcotics for pain relief once he is more alert and awake. (12) UTI (urinary tract infection) Conclusion/Plan: Patient was recently admitted for urinary tract infection. The patient's urine culture grew ESBL producing Klebsiella pneumonia which was susceptible to Levaquin and patient completed treatment. The patient's urinalysis is negative on presentation despite presenting with sepsis. The patient's sepsis appears to be from other source. The patient continues to have an indwelling Gutierrez catheter. Resolved - Lab Results Fish Bones: 01/07/18 15:42 01/07/18 15:42 Other Lab Results: Laboratory Tests 01/07/18 01/07/18 01/07/18 15:42 15:42 15:42 WBC 46.4 H* RBC 4.26 L Hgb 12.9 L Hct 38.1 L MCV 89.6 MCH 30.3 MCHC 33.9 RDW 14.4 Plt Count 532 H MPV 6.7 L Neut # (Auto) Not Reportable Lymph # (Auto) Not Reportable Hardy # (Auto) Not Reportable Eos # (Auto) Not Reportable Baso # (Auto) Not Reportable Absolute Nucleated RBC Not Reportable Total Counted 100 Band Neuts % (Manual) 31 H Abnorm Lymph % (Manual) 0 Nucleated RBC % Not Reportable Neutrophils # (Manual) 44.1 H Lymphocytes # (Manual) 2.3 Monocytes # (Manual) 0.0 Eosinophils # (Manual) 0.0 Basophils # (Manual) 0.0 Differential Comment MANUAL DIFFERENTIAL Manual Slide Review Indicated WBC Morphology TOXIC GRANULATION Platelet Estimate INCREASED (>450,000) Platelet Morphology NORMAL APPEARANCE RBC Morph Micro Appear NORMAL APPEARANCE Sodium 122 L Potassium 5.0 Chloride 90 L Carbon Dioxide 21 Anion Gap 11.0 BUN 40 H Creatinine 1.3 H Estimated GFR (MDRD) 53 L Glucose 134 H Lactic Acid Calcium 7.9 L Total Bilirubin 0.4 AST 31 ALT 21 Alkaline Phosphatase 94 B-Natriuretic Peptide 109 H Total Protein 5.4 L Albumin 2.0 L Globulin 3.4 Albumin/Globulin Ratio 0.6 L Lipase 24 Urine Color Urine Clarity Urine pH Ur Specific [place] Urine Protein Urine Glucose (UA) Urine Ketones Urine Occult Blood Urine Nitrite Urine Bilirubin Urine Urobilinogen Ur Leukocyte Esterase Ur Microscopic Review Urine Culture Comments 01/07/18 01/07/18 15:42 17:30 WBC RBC Hgb Hct MCV MCH MCHC RDW Plt Count MPV Neut # (Auto) Lymph # (Auto) Hardy # (Auto) Eos # (Auto) Baso # (Auto) Absolute Nucleated RBC Total Counted Band Neuts % (Manual) Abnorm Lymph % (Manual) Nucleated RBC % Neutrophils # (Manual) Lymphocytes # (Manual) Monocytes # (Manual) Eosinophils # (Manual) Basophils # (Manual) Differential Comment Manual Slide Review WBC Morphology Platelet Estimate Platelet Morphology RBC Morph Micro Appear Sodium Potassium Chloride Carbon Dioxide Anion Gap BUN Creatinine Estimated GFR (MDRD) Glucose Lactic Acid 2.4 H Calcium Total Bilirubin AST ALT Alkaline Phosphatase B-Natriuretic Peptide Total Protein Albumin Globulin Albumin/Globulin Ratio Lipase Urine Color DARK YELLOW Urine Clarity CLEAR Urine pH 5.5 Ur Specific [place] 1.020 Urine Protein NEGATIVE Urine Glucose (UA) NEGATIVE Urine Ketones NEGATIVE Urine Occult Blood NEGATIVE Urine Nitrite NEGATIVE Urine Bilirubin NEGATIVE Urine Urobilinogen 0.2 (NORMAL) Ur Leukocyte Esterase NEGATIVE Ur Microscopic Review NOT INDICATED Urine Culture Comments NOT INDICATED - Diagnostic Imaging Results Diagnostic Imaging Results: positive: Final report reviewed Diagnostic Imaging Results Comments: EXAM: CT ABDOMEN AND PELVIS EXAM DATE: 01/07/2018 04:11 PM. CLINICAL HISTORY: Distended abd hypotensive tachy. COMPARISONS: 12/26/2017. TECHNIQUE: Routine helical CT imaging was performed through the abdomen and pelvis. IV contrast: None. Enteric contrast: No. Reconstructions: Coronal and sagittal. In accordance with CT protocol optimization, one or more of the following dose reduction techniques were utilized for this exam: automated exposure control, adjustment of mA and/or KV based on patient size, or use of iterative reconstructive technique. FINDINGS: Lung Bases: Continued moderate right and small left pleural effusions with underlying consolidation, right more than left. Liver: Normal. No masses. Gallbladder/Bile Ducts: Diffusely increased intraluminal density, sludge versus secondary excretion of contrast. No ductal dilation. Spleen: Normal. Pancreas: Normal. Adrenal Glands: Normal. Kidneys: Normal. No masses or hydronephrosis. Peritoneal Cavity/Bowel: Marked distention of the colon with transverse colon measuring 11 cm in diameter, with multiple air-fluid levels. Distention extends to the proximal descending colon. No small bowel dilation. Trace free fluid, less than in the previous exam. No free air or lymphadenopathy. Unremarkable region of appendix. Pelvic Organs: Decompressed urinary bladder with Gutierrez catheter in place and small amount of air in the bladder. Vasculature: No aneurysms or other significant abnormality. Bones: Degenerative changes. Previous vertebroplasty of L3 and L4. Other: Bilateral inguinal hernias with fluid in the hernia sacs, but no definite bowel involvement. Previous bowel involvement with the small umbilical hernia has resolved. IMPRESSION: 1. Marked distention of the colon, most likely ileus, versus partial distal colon obstruction. 2. Continued bilateral pleural effusions with underlying consolidation, right more than left. 3. Resolution of bowel involvement and umbilical hernia; continued fluid in bilateral inguinal hernias. EXAM: CT ANGIOGRAM CHEST, ABDOMEN AND PELVIS EXAM DATE: 01/07/2018 06:51 PM. CLINICAL HISTORY: Afib abd pain distension GIB sepsis ? ischemia. COMPARISONS: Abdomen pelvis CT of this same date. Also abdomen and pelvis CT dated 12/26/2017. TECHNIQUE: Routine axial helical CT angiographic imaging was performed through the chest, abdomen, and pelvis. IV Contrast: ISOVUE 300 100mL. Reconstructions: Coronal, sagittal, and 3D MIP reconstructions of the aorta. In accordance with CT protocol optimization, one or more of the following dose reduction techniques were utilized for this exam: automated exposure control, adjustment of mA and/or KV based on patient size, or use of iterative reconstructive technique. FINDINGS: Vascular Structures: Mild dilation of ascending thoracic aorta measuring 3.7 cm. Circumferential or parallel collections of contrast are seen at the aortic root, probably related to motion artifact. Otherwise unremarkable aorta. No aneurysm, definite dissection, or significant atherosclerotic disease of the thoracic aorta, abdominal aorta, or iliac arteries. The visualized mesenteric, and solid organ vascular structures are also within normal limits. Pulmonary arteries generally well opacified; suspicion of small segmental to subsegmental emboli as exemplified on series 4 image 95 in the right base. Small subsegmental vessels in the bases are not opacified and may be involved. No large or central lesions. Lungs/Pleura: Large right and small to moderate left pleural effusions with underlying atelectasis and consolidation, right more than left. Consolidation may contribute to poor opacification of small vessels. Mild atelectasis versus dependent infiltrate in right upper lobe. Clear left upper lobe. No pneumothorax. Mediastinum: Borderline cardiomegaly. No pericardial effusion. At least one vessel coronary artery calcification. No lymphadenopathy. Fluid-filled esophagus most likely due to reflux. Abdominal Organs: See separate report. Peritoneal Cavity: See separate report; large bowel dilation with trace ascites. Pelvic Organs: Decompressed urinary bladder with Gutierrez catheter in place. Mild diffuse wall thickening of distal sigmoid and rectum measuring about 9 mm with apparent thickening at the level of the anus. Hazy infiltration of presacral fat with fluid collections at the level of the anus measuring about 3.5 x 2.0 cm on each side, extending to the right and to the left. Bones: Degenerative changes and other chronic findings. Other: Fluid in bilateral inguinal hernias. IMPRESSION: 1. Essentially negative aortic angiogram and branch vessels. Apparent parallel tracks at the aortic root are believed artifactual due to motion. If clinical suspicion of disease at this level is high, repeat gated study or echocardiogram may be helpful. 2. Small amount of pulmonary emboli in right lung base; associated consolidation may contribute to this appearance. 3. Mild diffuse wall thickening in the rectum with retrorectal and perianal infiltration and fluid collections suspicious for abscess. Correlation with physical exam may be helpful. 4. Large right and small left pleural effusions with associated atelectasis and consolidation, right more than left. 5. Other chronic or incidental findings. EXAM: CHEST RADIOGRAPHY EXAM DATE: 01/07/2018 11:49 PM. CLINICAL HISTORY: Central line placement. COMPARISON: CHEST 1 VIEW 01/07/2018 9:49 PM, ABDOMEN/PELVIS ANGIO 01/07/2018 6:36 P, CHEST 1 VIEW 11/26/2017 8:50 PM. TECHNIQUE: 1 view. FINDINGS IMPRESSION: 1. There is a right IJ central venous catheter with the tip projecting over the upper SVC. No definite evidence of a pneumothorax seen on this examination. 2. Small amount of soft tissue gas projects over the right upper chest, potentially related to vascular access attempts. 3. Hazy opacification of the right hemithorax is noted, likely due to a small layering effusion. 4. Bilateral perihilar streaky opacities, probably related to pulmonary venous congestion. There is at least mild enlargement of the cardiac silhouette as before. 5. Rounded ossific objects projecting over the shoulders bilaterally may be para-articular calcifications or artifact on the imaging plate. These are not seen on the prior studies from 11/26/2017. 6. Possible trace left effusion. EXAM: CHEST RADIOGRAPHY EXAM DATE: 01/07/2018 10:03 PM. CLINICAL HISTORY: Sepsis. Shortness of breath. COMPARISON: CHEST 1 VIEW 11/26/2017 8:50 PM. TECHNIQUE: 1 view. FINDINGS: Lungs/Pleura: Small lung volumes. Pulmonary vascular congestion with possible pulmonary edema. Small right pleural effusion. No pneumothorax. Mediastinum: Rotated. Within exam limitations, heart appears mildly enlarged. Tortuous ectatic atherosclerotic aorta. Other: Osteopenia. IMPRESSION: 1. Cardiomegaly and pulmonary vascular congestion with possible pulmonary edema. 2. Small right pleural effusion. - EKG Results EKG Interpreted Independently: Yes Core Measures - Anticipated LOS I expect patient to be DC'd or transferred within 96 hours.: Yes - DVT/VTE - Prophylaxis VTE/DVT Prophylaxis med ordered at admit?: Yes
[2018-01-07] MEDS: SODIUM CHLORIDE FLUSH 0.9% 10 ML SYRINGE IVP SCH ×2 (22:40→23:23)
[2018-01-07 23:01] LABS: HGB - HEMOGLOBIN 9.8 g/dL (14.0-18.0); LYMPHOCYTES % (AUTO) 17.1 %; MEAN CORPUSCULAR HEMOGLOBIN 30.3 pg (27.0-31.0); MEAN CORPUSCULAR HGB CONC 33.7 g/dL (32.0-36.0); MEAN CORPUSCULAR VOLUME 89.8 fL (80.0-94.0); MEAN PLATELET VOLUME 6.6 fL (7.4-11.4); MONOCYTES % (AUTO) 1.9 %; PLT - PLATELET COUNT 411 10^3/uL (130-450); RED BLOOD COUNT 3.25 10^6/uL (4.70-6.10); RED CELL DISTRIBUTION WIDTH 14.5 % (12.0-15.0)
[2018-01-07 23:10] LABS: ABNORMAL LYMPHS % (MANUAL) 0 %
[2018-01-07 23:16] LABS: ALBUMIN 1.4 g/dL (3.2-5.5); ALBUMIN/GLOBULIN RATIO 0.6 (1.0-2.2); BILIRUBIN,TOTAL 0.4 mg/dL (0.2-1.0); CALCIUM 6.7 mg/dL (8.5-10.3); MAGNESIUM 1.6 mg/dL (1.7-2.8); PHOSPHORUS 2.9 mg/dL (2.5-4.6); TOTAL PROTEIN 3.8 g/dL (6.7-8.2)
[2018-01-07] MEDS: MORPHINE 2 MG/ML CARPUJECT IVP PRN (23:22)
[2018-01-07] MEDS: MORPHINE ER 15 MG TABLET PO SCH (23:24)
--- NOTE | 2018-01-07 23:30 | XRAY Report ---
Reason: Sepsis Procedure Date: 01/07/2018 Accession Number: [id number] / [id number] Procedure: XR - Chest 1 View X-Ray CPT Code: 68150 FULL RESULT: EXAM: CHEST RADIOGRAPHY EXAM DATE: 01/07/2018 10:03 PM. CLINICAL HISTORY: Sepsis. Shortness of breath. COMPARISON: CHEST 1 VIEW 11/26/2017 8:50 PM. TECHNIQUE: 1 view. FINDINGS: Lungs/Pleura: Small lung volumes. Pulmonary vascular congestion with possible pulmonary edema. Small right pleural effusion. No pneumothorax. Mediastinum: Rotated. Within exam limitations, heart appears mildly enlarged. Tortuous ectatic atherosclerotic aorta. Other: Osteopenia. IMPRESSION: 1. Cardiomegaly and pulmonary vascular congestion with possible pulmonary edema. 2. Small right pleural effusion. [facility]
--- NOTE | 2018-01-08 00:03 | ANESTHESIA PROCEDURE NOTE ---
Anesth Central Line Template - Central Line Central Line Preparation: Consent Obtained Central line location: Right IJ Central line type: Triple lumen Central line aftercare: Chlorhexidine disc placed, Secured, Placement confirmed, No pneumothorax, No complications, Bundle checklist complete, Pt tolerated well, Other
--- NOTE | 2018-01-08 00:15 | XRAY Report ---
Reason: central line placement Procedure Date: 01/07/2018 Accession Number: [id number] / [id number] Procedure: XR - Chest 1 View X-Ray CPT Code: 20388 FULL RESULT: EXAM: CHEST RADIOGRAPHY EXAM DATE: 01/07/2018 11:49 PM. CLINICAL HISTORY: Central line placement. COMPARISON: CHEST 1 VIEW 01/07/2018 9:49 PM, ABDOMEN/PELVIS ANGIO 01/07/2018 6:36 P, CHEST 1 VIEW 11/26/2017 8:50 PM. TECHNIQUE: 1 view. FINDINGS IMPRESSION: 1. There is a right IJ central venous catheter with the tip projecting over the upper SVC. No definite evidence of a pneumothorax seen on this examination. 2. Small amount of soft tissue gas projects over the right upper chest, potentially related to vascular access attempts. 3. Hazy opacification of the right hemithorax is noted, likely due to a small layering effusion. 4. Bilateral perihilar streaky opacities, probably related to pulmonary venous congestion. There is at least mild enlargement of the cardiac silhouette as before. 5. Rounded ossific objects projecting over the shoulders bilaterally may be para-articular calcifications or artifact on the imaging plate. These are not seen on the prior studies from 11/26/2017. 6. Possible trace left effusion. RADIA
[2018-01-08] MEDS: FAMOTIDINE 20 MG/50 ML 50 ML IV SCH ×3 (00:18→20:35)
[2018-01-08] MEDS: SODIUM CHLORIDE 0.9% 1,000 ML IV SCH ×2 (00:18→11:16)
[2018-01-08] MEDS: MEROPENEM 1 GM in SODIUM CHLORIDE 0.9% MINIBAG 100 ML IV SCH ×4 (00:19→21:59)
[2018-01-08 00:42] LABS: BAND NEUTROPHILS % (MANUAL) 27 %; DIFFERENTIAL COMMENT MANUAL DIFFERENTIAL; LYMPHOCYTES # (MANUAL) 2.3 10^3/uL (1.5-3.5); LYMPHOCYTES % (MANUAL) 6 %; NEUTROPHILS # (MANUAL) 35.7 10^3/uL (1.5-6.6); NEUTROPHILS % (MANUAL) 67 %; PLATELET ESTIMATE, MANUAL NORMAL (130-450,000) (NORMAL); PLATELET MORPHOLOGY NORMAL APPEARANCE (NORMAL); RBC MORPHOLOGY (MULTIPLE) NORMAL APPEARANCE (NORMAL)
[2018-01-08] MEDS: MORPHINE 2 MG/ML CARPUJECT IVP PRN ×3 (04:09→17:36)
[2018-01-08] MEDS ORDERED: HEPARIN 5,000 UNIT/ML VIAL ONE (04:21)
[2018-01-08] MEDS: HEPARIN 25000UNITS/500ML (D5W) 25,000 UNIT/500 ML BAG IV SCH (04:26)
[2018-01-08] MEDS: SODIUM CHLORIDE FLUSH 0.9% 10 ML SYRINGE IVP PRN ×3 (04:28→18:03)
[2018-01-08 05:44] LABS: INR 1.5 (0.8-1.2); PT - PROTHROMBIN TIME 16.9 secs (9.9-12.6)
[2018-01-08 05:45] LABS: EOSINOPHILS % (AUTO) 0.1 %; HGB - HEMOGLOBIN 10.8 g/dL (14.0-18.0); LYMPHOCYTES # (AUTO) 6.9 10^3/uL (1.5-3.5); LYMPHOCYTES % (AUTO) 17.3 %; MEAN CORPUSCULAR HEMOGLOBIN 30.5 pg (27.0-31.0); MEAN CORPUSCULAR HGB CONC 34.3 g/dL (32.0-36.0); MEAN PLATELET VOLUME 7.1 fL (7.4-11.4); MONOCYTES # (AUTO) 0.7 10^3/uL (0.0-1.0); MONOCYTES % (AUTO) 1.7 %; NEUTROPHILS % (AUTO) 80.9 %; PLT - PLATELET COUNT 449 10^3/uL (130-450); RED BLOOD COUNT 3.55 10^6/uL (4.70-6.10); RED CELL DISTRIBUTION WIDTH 14.7 % (12.0-15.0)
[2018-01-08 05:48] LABS: WHITE BLOOD COUNT 39.7 x10^3/uL (4.8-10.8)
[2018-01-08 05:52] LABS: ALBUMIN 1.6 g/dL (3.2-5.5); ALBUMIN/GLOBULIN RATIO 0.6 (1.0-2.2); BILIRUBIN,TOTAL 0.5 mg/dL (0.2-1.0); MAGNESIUM 1.7 mg/dL (1.7-2.8); PHOSPHORUS 3.1 mg/dL (2.5-4.6); TOTAL PROTEIN 4.3 g/dL (6.7-8.2)
[2018-01-08 06:13] LABS: PLATELET ESTIMATE, MANUAL NORMAL (130-450,000) (NORMAL); PLATELET MORPHOLOGY NORMAL APPEARANCE (NORMAL); RBC MORPHOLOGY (MULTIPLE) NORMAL APPEARANCE (NORMAL)
[2018-01-08] MEDS ORDERED: VANCOMYCIN INJ 0.75 GM in SODIUM CHLORIDE 0.9% 250 ML IV SCH (07:00)
[2018-01-08] MEDS ORDERED: SODIUM CHLORIDE 0.9% 1,000 ML IV ONE (08:36)
[2018-01-08] MEDS ORDERED: ENOXAPARIN 40 MG/0.4 ML SYRINGE SUBQ SCH (09:00)
[2018-01-08] MEDS ORDERED: DULoxetine 20 MG CAPSULE PO SCH (09:00)
--- NOTE | 2018-01-08 09:30 | XRAY Report ---
Reason: NGT placement Procedure Date: 01/08/2018 Accession Number: [id number] / [id number] Procedure: XR - Abdomen 1 View X-Ray CPT Code: 15118 FULL RESULT: EXAM: ABDOMEN RADIOGRAPHY EXAM DATE: 01/08/2018 08:12 AM. CLINICAL HISTORY: NGT placement. COMPARISON: ABDOMEN 1 VIEW 12/28/2017 6:13 AM. TECHNIQUE: 1 view. FINDINGS: The enteric tube projects in the left upper quadrant. A large gas-distended structure in the left upper quadrant is felt to represent massively dilated redundant transverse colon. While the enteric tube is likely appropriately positioned, installation of non-barium contrast and confirmatory radiograph are suggested. There is massive dilation of large bowel up to approximately 13 cm reaching to at least the splenic flexure. No definite large bowel gas is seen in the rectal region. Background of dilated gas-distended small bowel loops is also seen. Cannot evaluate extraintestinal gas on supine radiographs. IMPRESSION: Distal large bowel obstruction versus ileus. Recommend confirmation of enteric tube position by contrast injection and follow-up radiograph. [facility]
[2018-01-08] MEDS: SODIUM CHLORIDE FLUSH 0.9% 10 ML SYRINGE IVP SCH ×2 (10:44→17:03)
[2018-01-08] MEDS: MORPHINE ER 15 MG TABLET PO SCH (10:44)
[2018-01-08] MEDS: NICOTINE 21 MG PATCH TOP SCH (11:22)
[2018-01-08] MEDS ORDERED: ACETAMINOPHEN 650 MG SUPP PR PRN (12:28)
--- NOTE | 2018-01-08 12:59 | PROVIDER PROGRESS NOTE ---
Subjective - Prog Note Date Prog Note Date: 01/08/18 Prog Note Time: 12:56 - Subjective Subjective: Transferred this morning he remained hypotensive and I had to do fluid bolus of normal saline. He did not respond to that and still remained in the 70s-80s systolic and I have started Levophed. We are increasing his levo fed drip and right now he is above 90 systolic. Continues to be minimally responsive. He will open his eyes and look at his and look at his daughter but essentially nonverbal. His oxygen requirement is dated 3 L. Pulse is in the 120s and is stable with atrial fibrillation. He has been hypothermic to 36 degrees. This morning he is 37.1. and daughter are at the bedside. White cell count has gone from 46,000 down to 39,000. Current Medications - Current Medications Current Medications: Active Medications Acetaminophen (Tylenol) 650 mg NE Q6HR PRN PRN Reason: Pain or Fever > 38C (100.4F) Hydrocodone Bitart/Acetaminophen ([place] 10 Mg/325 Mg) 1 tab PO Q4HR PRN PRN Reason: Pain 8 to 10 Enoxaparin Sodium (Lovenox) 40 mg SUBQ DAILY [facility] Last Admin: 01/08/18 09:37 Dose: Not Given Famotidine (Pepcid 20 Mg/50 Ml) 50 mls @ 100 mls/hr IV BID [facility] Last Infusion: 01/08/18 10:27 Dose: Infused Meropenem 1 gm/ Sodium (Chloride) 100 mls @ 200 mls/hr IV Q8H [facility] Last Admin: 01/08/18 06:19 Dose: 200 mls/hr Sodium Chloride (Normal Saline 0.9%) 1,000 mls @ 100 mls/hr IV .Q10H [facility] Last Infusion: 01/08/18 12:00 Dose: 100 mls/hr Heparin Sodium/Dextrose () 25,000 unit in 500 mls @ 24.494 mls/hr IV .[id number] [facility]; Protocol Last Admin: 01/08/18 04:26 Dose: 15 unit/kg/hr, 24.494 mls/hr Vancomycin HCl 1.5 gm/ Sodium (Chloride) 250 mls @ 167 mls/hr IV 0100,1300 [facility] Last Admin: 01/08/18 12:57 Dose: 167 mls/hr Norepinephrine Bitartrate 8 mg (/ Dextrose) 250 mls @ 15 mls/hr IV .[id number] [facility]; Protocol Last Titration: 01/08/18 13:04 Dose: 16 mcg/min, 30 mls/hr Morphine Sulfate (Morphine (Carpuject)) 2 mg IVP Q2HR PRN PRN Reason: Pain 8 to 10 Last Admin: 01/08/18 10:42 Dose: 2 mg Nicotine (Nicoderm) 1 patch TOP DAILY [facility] Last Admin: 01/08/18 11:22 Dose: 1 patch Ondansetron HCl (Zofran Inj) 4 mg IVP Q6HR PRN PRN Reason: Nausea / Vomiting Prochlorperazine Edisylate (Compazine Inj) 10 mg IVP Q6HR PRN PRN Reason: Nausea / Vomiting Promethazine HCl (Phenergan Inj) 25 mg IM Q6HR PRN PRN Reason: Nausea / Vomiting Sodium Chloride (Normal Saline Flush 0.9%) 10 ml IVP 0100,0900,1700 [facility] Last Admin: 01/08/18 10:44 Dose: 10 ml Sodium Chloride (Normal Saline Flush 0.9%) 10 ml IVP PRN PRN PRN Reason: NEEDED PER PROVIDER ORDERS Last Admin: 01/08/18 05:03 Dose: 20 ml Aspirin 325 mg PO QDAC 12/31/12 Duloxetine HCl 20 mg PO DAILY 12/26/17 Furosemide 40 mg PO DAILY 12/26/17 Omeprazole [PriLOSEC] 20 mg PO DAILY 12/26/17 Ondansetron [Zofran Odt] 8 mg PO TID PRN 12/26/17 Polyethylene Glycol 3350 [Miralax] 17 gm PO DAILY 12/26/17 Potassium Chloride [Klor-Con M20] 20 meq PO DAILY 12/26/17 Senna [Senokot] 8.6 mg PO BID PRN 12/26/17 Spironolactone 50 mg PO BID 12/26/17 Tamsulosin HCl [Flomax] 0.8 mg PO DAILY 12/26/17 traMADol [Ultram] 50 mg PO QID PRN 12/26/17 Objective - Vital Signs/Intake & Output Reviewed Vital Signs: Yes Vital Signs: Vital Signs Pulse Resp BP Pulse Ox 10/02/18 12:00 121 H 18 99/62 97 01/08/18 10:05 123 H 87/59 L 94 01/08/18 10:00 124 H 84/59 L 94 01/08/18 09:55 124 H 19 81/52 L 95 01/08/18 09:50 122 H 20 97/56 L 95 01/08/18 09:45 123 H 20 70/55 L 96 01/08/18 09:40 121 H 19 91/65 97 01/08/18 09:35 124 H 20 89/51 L 96 01/08/18 09:30 123 H 19 76/55 L 96 01/08/18 09:25 124 H 18 90/64 97 01/08/18 09:20 123 H 18 83/57 L 97 01/08/18 09:15 127 H 17 84/51 L 96 01/08/18 09:10 125 H 17 88/51 L 95 01/08/18 09:05 129 H 17 82/57 L 96 01/08/18 09:00 125 H 19 85/54 L 96 Intake & Output: Intake & Output 01/05/18 01/06/18 01/07/18 01/08/18 23:59 23:59 23:59 23:59 Intake Total 1250.5 6517.208 Output Total 1095 Balance 1250.5 5422.208 - Objective General Appearance: positive: Lethargic (Opens eyes to my voice but nonresponsive verbally. Eyes are usually closed, with no labored respiration.) Eyes Bilateral: positive: PERRL, EOMI ENT: positive: Dry mucous membranes (Mouth breathing with a positive "o" sign) Neck: positive: No JVD. negative: Stiff neck, Carotid bruit Respiratory: positive: Chest non-tender, Rhonchi, Other (Really diminished at bases. I do not start hearing lung sounds until mid lung field or in the axilla) Cardiovascular: positive: Irregularly irregular, Tachycardia, Systolic murmur. negative: Gallop/S4, Friction rub Abdomen: positive: Other (Mild distention, 2 hypoactive bowel sounds, no grimacing of pain when I palpate. Do not feel any masses.) Skin: positive: Warm, Diaphoresis, Pallor Extremities: positive: Other (He is starting to third space and has diffuse edema/anasarca) Neurologic/Psychiatric: positive: Other (Responsive to voice, opens eyes and that is it. Nonverbal.) - Lab Results Fish Bones: 01/08/18 05:00 01/08/18 05:00 Other Labs: Lab Results x24hrs 01/08/18 01/08/18 01/08/18 Range/Units 09:49 05:00 05:00 WBC (4.8-10.8) x10^3/uL RBC (4.70-6.10) 10^6/uL Hgb (14.0-18.0) g/dL Hct (42.0-52.0) % MCV (80.0-94.0) fL MCH (27.0-31.0) pg MCHC (32.0-36.0) g/dL RDW (12.0-15.0) % Plt Count (130-450) 10^3/uL MPV (7.4-11.4) fL Neut # (Auto) Lymph # (Auto) [place] # (Auto) Eos # (Auto) Baso # (Auto) Absolute Nucleated RBC Total Counted Band Neuts % (Manual) (0 - 10) % Abnorm Lymph % (Manual) % Nucleated RBC % Neutrophils # (Manual) (1.5-6.6) 10^3/uL Lymphocytes # (Manual) (1.5-3.5) 10^3/uL Monocytes # (Manual) (0.0-1.0) 10^3/uL Eosinophils # (Manual) (0-0.7) 10^3/uL Basophils # (Manual) (0-0.1) 10^3/uL Differential Comment Manual Slide Review WBC Morphology (NORMAL) Platelet Estimate (NORMAL) Platelet Morphology (NORMAL) RBC Morph Micro Appear (NORMAL) PT 16.9 H (9.9-12.6) secs INR 1.5 H (0.8-1.2) Anti-Xa Level 0.3 ( - 0.7) U/mL Sodium 129 L (135-145) mmol/L Potassium 4.1 (3.5-5.0) mmol/L Chloride 98 L (101-111) mmol/L Carbon Dioxide 20 L (21-32) mmol/L Anion Gap 11.0 (6-13) BUN 39 H (6-20) mg/dL Creatinine 1.0 (0.6-1.2) mg/dL Estimated GFR (MDRD) 72 L (>89) Glucose 105 H (70-100) mg/dL Lactic Acid (0.5-2.2) mmol/L Calcium 7.0 L (8.5-10.3) mg/dL Phosphorus 3.1 (2.5-4.6) mg/dL Magnesium 1.7 (1.7-2.8) mg/dL Total Bilirubin 0.5 (0.2-1.0) mg/dL AST 29 (10-42) IU/L ALT 20 (10-60) IU/L Alkaline Phosphatase 64 (42-121) IU/L Troponin I (<0.49) ng/mL B-Natriuretic Peptide (5-100) pg/mL Total Protein 4.3 L (6.7-8.2) g/dL Albumin 1.6 L (3.2-5.5) g/dL Globulin 2.7 (2.1-4.2) g/dL Albumin/Globulin Ratio 0.6 L (1.0-2.2) Lipase (22-51) U/L Urine Color Urine Clarity (CLEAR) Urine pH (5.0-7.5) PH Ur Specific [place] (1.002-1.030) Urine Protein (NEGATIVE) mg/dL Urine Glucose (UA) (NEGATIVE) mg/dL Urine Ketones (NEGATIVE) mg/dL Urine Occult Blood (NEGATIVE) Urine Nitrite (NEGATIVE) Urine Bilirubin (NEGATIVE) Urine Urobilinogen (NORMAL) E.U./dL Ur Leukocyte Esterase (NEGATIVE) Ur Microscopic Review Urine Culture Comments 01/08/18 01/07/18 01/07/18 Range/Units 05:00 22:48 22:48 WBC 39.7 H* (4.8-10.8) x10^3/uL RBC 3.55 L (4.70-6.10) 10^6/uL Hgb 10.8 L (14.0-18.0) g/dL Hct 31.6 L (42.0-52.0) % MCV 89.0 (80.0-94.0) fL MCH 30.5 (27.0-31.0) pg MCHC 34.3 (32.0-36.0) g/dL RDW 14.7 (12.0-15.0) % Plt Count 449 (130-450) 10^3/uL MPV 7.1 L (7.4-11.4) fL Neut # (Auto) 32.0 H Lymph # (Auto) 6.9 H [place] # (Auto) 0.7 Eos # (Auto) 0.0 Baso # (Auto) 0.0 Absolute Nucleated RBC 0.01 Total Counted Band Neuts % (Manual) (0 - 10) % Abnorm Lymph % (Manual) % Nucleated RBC % 0.0 Neutrophils # (Manual) (1.5-6.6) 10^3/uL Lymphocytes # (Manual) (1.5-3.5) 10^3/uL Monocytes # (Manual) (0.0-1.0) 10^3/uL Eosinophils # (Manual) (0-0.7) 10^3/uL Basophils # (Manual) (0-0.1) 10^3/uL Differential Comment Manual Slide Review Indicated WBC Morphology TOXIC GRANULATION (NORMAL) Platelet Estimate NORMAL (130-450,000) (NORMAL) Platelet Morphology NORMAL APPEARANCE (NORMAL) RBC Morph Micro Appear NORMAL APPEARANCE (NORMAL) PT (9.9-12.6) secs INR (0.8-1.2) Anti-Xa Level ( - 0.7) U/mL Sodium (135-145) mmol/L Potassium (3.5-5.0) mmol/L Chloride (101-111) mmol/L Carbon Dioxide (21-32) mmol/L Anion Gap (6-13) BUN (6-20) mg/dL Creatinine (0.6-1.2) mg/dL Estimated GFR (MDRD) (>89) Glucose (70-100) mg/dL Lactic Acid (0.5-2.2) mmol/L Calcium (8.5-10.3) mg/dL Phosphorus (2.5-4.6) mg/dL Magnesium (1.7-2.8) mg/dL Total Bilirubin (0.2-1.0) mg/dL AST (10-42) IU/L ALT (10-60) IU/L Alkaline Phosphatase (42-121) IU/L Troponin I 0.05 (<0.49) ng/mL B-Natriuretic Peptide 281 H (5-100) pg/mL Total Protein (6.7-8.2) g/dL Albumin (3.2-5.5) g/dL Globulin (2.1-4.2) g/dL Albumin/Globulin Ratio (1.0-2.2) Lipase (22-51) U/L Urine Color Urine Clarity (CLEAR) Urine pH (5.0-7.5) PH Ur Specific [place] (1.002-1.030) Urine Protein (NEGATIVE) mg/dL Urine Glucose (UA) (NEGATIVE) mg/dL Urine Ketones (NEGATIVE) mg/dL Urine Occult Blood (NEGATIVE) Urine Nitrite (NEGATIVE) Urine Bilirubin (NEGATIVE) Urine Urobilinogen (NORMAL) E.U./dL Ur Leukocyte Esterase (NEGATIVE) Ur Microscopic Review Urine Culture Comments 01/07/18 01/07/18 01/07/18 Range/Units 22:48 22:48 22:48 WBC 38.0 H* (4.8-10.8) x10^3/uL RBC 3.25 L (4.70-6.10) 10^6/uL Hgb 9.8 L (14.0-18.0) g/dL Hct 29.2 L (42.0-52.0) % MCV 89.8 (80.0-94.0) fL MCH 30.3 (27.0-31.0) pg MCHC 33.7 (32.0-36.0) g/dL RDW 14.5 (12.0-15.0) % Plt Count 411 (130-450) 10^3/uL MPV 6.6 L (7.4-11.4) fL Neut # (Auto) Not Reportable Lymph # (Auto) Not Reportable [place] # (Auto) Not Reportable Eos # (Auto) Not Reportable Baso # (Auto) Not Reportable Absolute Nucleated RBC Not Reportable Total Counted 100 Band Neuts % (Manual) 27 H (0 - 10) % Abnorm Lymph % (Manual) 0 % Nucleated RBC % Not Reportable Neutrophils # (Manual) 35.7 H (1.5-6.6) 10^3/uL Lymphocytes # (Manual) 2.3 (1.5-3.5) 10^3/uL Monocytes # (Manual) 0.0 (0.0-1.0) 10^3/uL Eosinophils # (Manual) 0.0 (0-0.7) 10^3/uL Basophils # (Manual) 0.0 (0-0.1) 10^3/uL Differential Comment MANUAL DIFFERENTIAL Manual Slide Review Indicated WBC Morphology TOXIC GRANULATION (NORMAL) Platelet Estimate NORMAL (130-450,000) (NORMAL) Platelet Morphology NORMAL APPEARANCE (NORMAL) RBC Morph Micro Appear NORMAL APPEARANCE (NORMAL) PT (9.9-12.6) secs INR (0.8-1.2) Anti-Xa Level 0.1 ( - 0.7) U/mL Sodium 126 L (135-145) mmol/L Potassium 4.2 (3.5-5.0) mmol/L Chloride 97 L (101-111) mmol/L Carbon Dioxide 22 (21-32) mmol/L Anion Gap 7.0 (6-13) BUN 39 H (6-20) mg/dL Creatinine 1.0 (0.6-1.2) mg/dL Estimated GFR (MDRD) 72 L (>89) Glucose 98 (70-100) mg/dL Lactic Acid (0.5-2.2) mmol/L Calcium 6.7 L (8.5-10.3) mg/dL Phosphorus 2.9 (2.5-4.6) mg/dL Magnesium 1.6 L (1.7-2.8) mg/dL Total Bilirubin 0.4 (0.2-1.0) mg/dL AST 30 (10-42) IU/L ALT 19 (10-60) IU/L Alkaline Phosphatase 59 (42-121) IU/L Troponin I (<0.49) ng/mL B-Natriuretic Peptide (5-100) pg/mL Total Protein 3.8 L (6.7-8.2) g/dL Albumin 1.4 L (3.2-5.5) g/dL Globulin 2.4 (2.1-4.2) g/dL Albumin/Globulin Ratio 0.6 L (1.0-2.2) Lipase (22-51) U/L Urine Color Urine Clarity (CLEAR) Urine pH (5.0-7.5) PH Ur Specific [place] (1.002-1.030) Urine Protein (NEGATIVE) mg/dL Urine Glucose (UA) (NEGATIVE) mg/dL Urine Ketones (NEGATIVE) mg/dL Urine Occult Blood (NEGATIVE) Urine Nitrite (NEGATIVE) Urine Bilirubin (NEGATIVE) Urine Urobilinogen (NORMAL) E.U./dL Ur Leukocyte Esterase (NEGATIVE) Ur Microscopic Review Urine Culture Comments 01/07/18 01/07/18 01/07/18 Range/Units 22:48 17:30 15:42 WBC (4.8-10.8) x10^3/uL RBC (4.70-6.10) 10^6/uL Hgb (14.0-18.0) g/dL Hct (42.0-52.0) % MCV (80.0-94.0) fL MCH (27.0-31.0) pg MCHC (32.0-36.0) g/dL RDW (12.0-15.0) % Plt Count (130-450) 10^3/uL MPV (7.4-11.4) fL Neut # (Auto) Lymph # (Auto) [place] # (Auto) Eos # (Auto) Baso # (Auto) Absolute Nucleated RBC Total Counted Band Neuts % (Manual) (0 - 10) % Abnorm Lymph % (Manual) % Nucleated RBC % Neutrophils # (Manual) (1.5-6.6) 10^3/uL Lymphocytes # (Manual) (1.5-3.5) 10^3/uL Monocytes # (Manual) (0.0-1.0) 10^3/uL Eosinophils # (Manual) (0-0.7) 10^3/uL Basophils # (Manual) (0-0.1) 10^3/uL Differential Comment Manual Slide Review WBC Morphology (NORMAL) Platelet Estimate (NORMAL) Platelet Morphology (NORMAL) RBC Morph Micro Appear (NORMAL) PT (9.9-12.6) secs INR (0.8-1.2) Anti-Xa Level ( - 0.7) U/mL Sodium (135-145) mmol/L Potassium (3.5-5.0) mmol/L Chloride (101-111) mmol/L Carbon Dioxide (21-32) mmol/L Anion Gap (6-13) BUN (6-20) mg/dL Creatinine (0.6-1.2) mg/dL Estimated GFR (MDRD) (>89) Glucose (70-100) mg/dL Lactic Acid 1.7 2.4 H (0.5-2.2) mmol/L Calcium (8.5-10.3) mg/dL Phosphorus (2.5-4.6) mg/dL Magnesium (1.7-2.8) mg/dL Total Bilirubin (0.2-1.0) mg/dL AST (10-42) IU/L ALT (10-60) IU/L Alkaline Phosphatase (42-121) IU/L Troponin I (<0.49) ng/mL B-Natriuretic Peptide (5-100) pg/mL Total Protein (6.7-8.2) g/dL Albumin (3.2-5.5) g/dL Globulin (2.1-4.2) g/dL Albumin/Globulin Ratio (1.0-2.2) Lipase (22-51) U/L Urine Color DARK YELLOW Urine Clarity CLEAR (CLEAR) Urine pH 5.5 (5.0-7.5) PH Ur Specific [place] 1.020 (1.002-1.030) Urine Protein NEGATIVE (NEGATIVE) mg/dL Urine Glucose (UA) NEGATIVE (NEGATIVE) mg/dL Urine Ketones NEGATIVE (NEGATIVE) mg/dL Urine Occult Blood NEGATIVE (NEGATIVE) Urine Nitrite NEGATIVE (NEGATIVE) Urine Bilirubin NEGATIVE (NEGATIVE) Urine Urobilinogen 0.2 (NORMAL) (NORMAL) E.U./dL Ur Leukocyte Esterase NEGATIVE (NEGATIVE) Ur Microscopic Review NOT INDICATED Urine Culture Comments NOT INDICATED 01/07/18 01/07/18 01/07/18 Range/Units 15:42 15:42 15:42 WBC 46.4 H* (4.8-10.8) x10^3/uL RBC 4.26 L (4.70-6.10) 10^6/uL Hgb 12.9 L (14.0-18.0) g/dL Hct 38.1 L (42.0-52.0) % MCV 89.6 (80.0-94.0) fL MCH 30.3 (27.0-31.0) pg MCHC 33.9 (32.0-36.0) g/dL RDW 14.4 (12.0-15.0) % Plt Count 532 H (130-450) 10^3/uL MPV 6.7 L (7.4-11.4) fL Neut # (Auto) Not Reportable Lymph # (Auto) Not Reportable [place] # (Auto) Not Reportable Eos # (Auto) Not Reportable Baso # (Auto) Not Reportable Absolute Nucleated RBC Not Reportable Total Counted 100 Band Neuts % (Manual) 31 H (0 - 10) % Abnorm Lymph % (Manual) 0 % Nucleated RBC % Not Reportable Neutrophils # (Manual) 44.1 H (1.5-6.6) 10^3/uL Lymphocytes # (Manual) 2.3 (1.5-3.5) 10^3/uL Monocytes # (Manual) 0.0 (0.0-1.0) 10^3/uL Eosinophils # (Manual) 0.0 (0-0.7) 10^3/uL Basophils # (Manual) 0.0 (0-0.1) 10^3/uL Differential Comment MANUAL DIFFERENTIAL Manual Slide Review Indicated WBC Morphology TOXIC GRANULATION (NORMAL) Platelet Estimate INCREASED (>450,000) (NORMAL) Platelet Morphology NORMAL APPEARANCE (NORMAL) RBC Morph Micro Appear NORMAL APPEARANCE (NORMAL) PT (9.9-12.6) secs INR (0.8-1.2) Anti-Xa Level ( - 0.7) U/mL Sodium 122 L (135-145) mmol/L Potassium 5.0 (3.5-5.0) mmol/L Chloride 90 L (101-111) mmol/L Carbon Dioxide 21 (21-32) mmol/L Anion Gap 11.0 (6-13) BUN 40 H (6-20) mg/dL Creatinine 1.3 H (0.6-1.2) mg/dL Estimated GFR (MDRD) 53 L (>89) Glucose 134 H (70-100) mg/dL Lactic Acid (0.5-2.2) mmol/L Calcium 7.9 L (8.5-10.3) mg/dL Phosphorus (2.5-4.6) mg/dL Magnesium (1.7-2.8) mg/dL Total Bilirubin 0.4 (0.2-1.0) mg/dL AST 31 (10-42) IU/L ALT 21 (10-60) IU/L Alkaline Phosphatase 94 (42-121) IU/L Troponin I (<0.49) ng/mL B-Natriuretic Peptide 109 H (5-100) pg/mL Total Protein 5.4 L (6.7-8.2) g/dL Albumin 2.0 L (3.2-5.5) g/dL Globulin 3.4 (2.1-4.2) g/dL Albumin/Globulin Ratio 0.6 L (1.0-2.2) Lipase 24 (22-51) U/L Urine Color Urine Clarity (CLEAR) Urine pH (5.0-7.5) PH Ur Specific [place] (1.002-1.030) Urine Protein (NEGATIVE) mg/dL Urine Glucose (UA) (NEGATIVE) mg/dL Urine Ketones (NEGATIVE) mg/dL Urine Occult Blood (NEGATIVE) Urine Nitrite (NEGATIVE) Urine Bilirubin (NEGATIVE) Urine Urobilinogen (NORMAL) E.U./dL Ur Leukocyte Esterase (NEGATIVE) Ur Microscopic Review Urine Culture Comments Assessment/Plan - Problem List (1) Severe sepsis Impression: Patient presented to the emergency department with severe sepsis with heart rate in the 120s, respiratory rate of 24, hypotension and leukocytosis of 46.4 with a 31% bandemia. The patient also had lethargy due to metabolic encephalopathy, acute kidney injury and an elevated lactic acid of 2.4 on presentation. The patient was recently hospitalized for UTI with ESBL producing Klebsiella p neumonia. The patient's urinalysis on presentation however was negative. The patient presented with abdominal distention, abdominal pain, back pain, nausea and vomiting. Initially the source of the patient's infection was thought to likely be an intra-abdominal source. Patient underwent CT of his abdomen and pelvis as well as CT angiogram of chest abdomen and pelvis. The imaging revealed a partial distal colonic obstruction, consolidation of the lower lungs and right sided pulmonary emboli. Given these findings likely source is healthcare associated pneumonia given the patient's recent hospitalization. However the patient also had recent spinal surgery and the pulmonary emboli could be septic emboli. It is therefore also imperative that we rule out possibility of spinal abscess as well as possibility of endocarditis. The patient also was found to have possible rectal abscess with CT however surgery was consulted and ruled out the possibility of a rectal abscess at this time. He has not responded to IVF and abx. Still hypotensive and less and less responsive. Plan: Continue to treat with broad-spectrum IV antibiotics vancomycin and meropenem Continue IV fluids and another bolus done this am without response. Blood cultures done and pending Echocardiogram ordered and pending MRI lumbar spine ordered and pending. He is now on levophed. Will take him to MRI, get him on table, remove tubing for levophed, then resume once MRI done. Being monitored closely in the intensive care unit and he is not responding to IVF and IV abx. Start Levophed. Central line placement done (2) HCAP (healthcare-associated pneumonia) Conclusion/Plan: The patient presented with severe sepsis with unclear source. Currently the only possible source that has been found is pneumonia. The patient's CT abdomen pelvis revealed bilateral pleural effusions with underlying consolidation right more than left. Given that the patient has been bedbound on narcotics and dealing with the pain he was at high risk for pneumonia. He has had likely atelectasis and may have developed pneumonia which could have been the cause of his presenting sepsis. The patient is only mildly hypoxic and was tachypneic on presentation. The patient has not been having fevers. The patient has not been having significant respiratory distress. The patient was recently hospitalized and therefore will be treated as a healthcare associated pneumonia. So far his oxygen requirement has been stable at 3 liters. Plan IV antibiotics with vancomycin and meropenem for broad coverage IV fluids Supplemental oxygen Blood cultures done and pending I have discussed his wishes from last admission where he told me he did not want to be intubated if he stopped breathing. remembers that conversation. Daughter is here. He was supposed to have discussed this with her and feel that a new POLST form. But they never did it last admission. Long discussion today. Daughter will talk to her sister in [place]. They will let me know if they want me to proceed with intubation if necessary. (3) Bowel obstruction Conclusion/Plan: Patient had a recent admission where he had a small bowel obstruction secondary to ileus which appeared to have resolved. Now patient has had no bowel movement for the last 3 days and has been having increasing abdominal distention, abdominal pain and nausea and vomiting. The patient's CT of the abdomen reveals a distended colon concerning for likely ileus versus partial distal colon obstruction. Most likely this is secondary to a ileus given his risk factors of having had a recent spinal surgery, being primarily bedbound with decreased ambulation, being on chronic opioids and with ongoing sepsis. Plan: IV fluids N.p.o. With oral Tylenol, Cymbalta discontinued Surgical consult Thought of. But at this time I am holding off since he is doing so poorly. He is not a candidate for surgery. Limit IV narcotics But I do not want him to go through withdrawal, and have stopped p.o. medications IV antiemetics Once patient is improved encourage ambulation. Qualifiers: Intestinal obstruction type: unspecified ileus Qualified Code(s): K56.7 - Ileus, unspecified (4) Pulmonary embolism Conclusion/Plan: The patient had a recent spinal surgery in December and has been primarily bedbound since the surgery limited to a bed and wheelchair with limited ability to participate in physical therapy. The patient is very high risk for a pulmonary embolism and CT angiogram done of chest and the abdomen shows small right sided pulmonary emboli. Patient will be treated with anticoagulation. For now we will place him on IV heparin infusion in case patient needs any surgical intervention. Patient will get an echocardiogram to look for right heart strain. There is also possibility of these being septic emboli given the patient is septic and echocardiogram will be needed to rule out endocarditis. Qualifiers: Pulmonary embolism type: other Chronicity: acute Acute cor pulmonale presence: without acute cor pulmonale Qualified Code(s): I26.99 - Other pulmonary embolism without acute cor pulmonale (5) Metabolic encephalopathy Conclusion/Plan: The patient appears to have metabolic encephalopathy which is likely secondary to sepsis. Although the patient is also on narcotics which could also be contributing to his lethargy. For now while patient is lethargic his oral narcotics will be held. Still on IV since I don't want him to withdraw. We will treat his sepsis with IV antibiotics and fluids. We will continue to monitor the patient's encephalopathy. If the patient continues to have lethargy despite treatment we will need to consider getting a CT of his head. (6) AGUEDA (acute kidney injury) Conclusion/Plan: On presentation to the emergency department the patient does have acute kidney injury with a creatinine of 1.3 which is elevated from his baseline of 0.6. Patient's renal failure appears to be prerenal secondary to dehydration from sepsis. Creatinine now down to 1.0 this am. Plan: IV fluids Monitor creatinine Avoid nephrotoxic agents Hold diuretics (7) Hyponatremia Conclusion/Plan: The patient presents with hyponatremia. His sodium on presentation is 122 which is significantly below his baseline. The patient appears to have hypovolemic hyponatremia as he is very dry on exam and patient and hypotensive on presentation. This is likely secondary to sepsis. Patient will be given IV fluids and we will continue to monitor his sodium. He has gone from 122>126 and 129 this am. (8) B-cell lymphoproliferative disorder Conclusion/Plan: The patient underwent a bone marrow biopsy in December when he had his spinal surgery. 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 The patient is [place] [facility] [place] 06 for initial assessment. The patient has a leukocytosis of 46.4 on presentation however speaking to the lab there are no abnormal cells or blasts and the differential looks very much like inflammation or infection with a significant bandemia. For now plan will be for patient to follow-up as an outpatient with oncology regarding his bone marrow biopsy. Patient's current leukocytosis appears to be secondary to sepsis and not related to his lymphoproliferative disorder. (9) Chronic atrial fibrillation Conclusion/Plan: The patient has a history of chronic atrial fibrillation. He is not on Coumadin nor is he on anything for rate control. On presentation to the emergency department the patient is tachycardic with heart rate in the 120s. This appears to be a normal response to his sepsis rather than A. fib with rapid ventricular rate. We will continue to monitor the patient on telemetry and patient will get an echocardiogram while he is hospitalized. The patient will be started on anticoagulation given his finding of pulmonary embolism and there will need to be further discussion with his primary care physician as to whether the patient should be on chronic anticoagulation with his history of A. fib. (10) Obstructive uropathy Conclusion/Plan: The patient recently has developed obstructive uropathy for which he has an indwelling Gutierrez catheter. The patient was recently admitted with urinary tract infection growing ESBL producing Klebsiella pneumonia. Patient's obstructive uropathy is likely secondary to his BPH but also likely worsened due to his need for chronic opioids due to his back pain. We will continue with his chronic Gutierrez catheter. (11) Status post laminectomy Conclusion/Plan: Surgery done 12/18/2017 Given the patient's ongoing sepsis we will get an MRI of the patient's lumbar spine to rule out a spinal abscess although given the patient's symptoms this does appear to be less likely. Once patient is recovering from sepsis we will need to restart physical therapy. Patient will be continued on narcotics for pain relief once he is more alert and awake. (12) UTI (urinary tract infection) Conclusion/Plan: Patient was recently admitted for urinary tract infection. The patient's urine culture grew ESBL producing Klebsiella pneumonia which was susceptible to Levaquin and patient completed treatment. The patient's urinalysis is negative on presentation despite presenting with sepsis. The patient's sepsis appears to be from other source. The patient continues to have an indwelling Gutierrez catheter. Resolved
[2018-01-08] MEDS ORDERED: VANCOMYCIN INJ 1.5 GM in SODIUM CHLORIDE 0.9% 250 ML IV SCH (13:00)
[2018-01-08] MEDS ORDERED: MAGNESIUM SULFATE 2 GRAM 2 GM/50 ML BAG IV ONE (13:59)
[2018-01-08] MEDS ORDERED: VANCOMYCIN INJ 1.5 GM in SODIUM CHLORIDE 0.9% 500 ML IV SCH (15:49)
--- NOTE | 2018-01-08 17:33 | PROVIDER PROGRESS NOTE ---
Subjective - Prog Note Date Prog Note Date: 01/08/18 Prog Note Time: 17:31 - Subjective Pt reports feeling: Improved (pt is now awake, alert, comfortable, c/o mild lower back pain; no abd pain; passing flatus and small amt stool.) Objective - Vital Signs/Intake & Output Reviewed Vital Signs: Yes Vital Signs: Vital Signs Temp Pulse Resp BP Pulse Ox 01/08/18 16:00 37.2 C 117 H 16 98/70 96 01/08/18 15:00 117 H 16 94/58 L 98 01/08/18 14:00 114 H 15 106/61 98 Intake & Output: Intake & Output 01/05/18 01/06/18 01/07/18 01/08/18 23:59 23:59 23:59 23:59 Intake Total 1250.5 7953.019 Output Total 1435 Balance 1250.5 6518.019 - Objective General Appearance: positive: No acute distress, Alert Abdomen: positive: Tenderness (mild at umbilical hernia site; reducible; ow abd soft, mod distended (less than this am or yesterday), non tender; also has reducible bilat inguinal hernias), Abnml bowel sounds (hypoactive). negative: Guarding, Rebound, Hepatomegaly, Splenomegaly, Mass Skin: positive: Warm, Pallor Extremities: positive: Pedal edema. negative: Calf tenderness - Lab Results Fish Bones: 01/08/18 05:00 01/08/18 05:00 Other Labs: Lab Results x24hrs 01/08/18 01/08/18 01/08/18 Range/Units 16:14 09:49 05:00 WBC (4.8-10.8) x10^3/uL RBC (4.70-6.10) 10^6/uL Hgb (14.0-18.0) g/dL Hct (42.0-52.0) % MCV (80.0-94.0) fL MCH (27.0-31.0) pg MCHC (32.0-36.0) g/dL RDW (12.0-15.0) % Plt Count (130-450) 10^3/uL MPV (7.4-11.4) fL Neut # (Auto) Lymph # (Auto) [place] # (Auto) Eos # (Auto) Baso # (Auto) Absolute Nucleated RBC Total Counted Band Neuts % (Manual) (0 - 10) % Abnorm Lymph % (Manual) % Nucleated RBC % Neutrophils # (Manual) (1.5-6.6) 10^3/uL Lymphocytes # (Manual) (1.5-3.5) 10^3/uL Monocytes # (Manual) (0.0-1.0) 10^3/uL Eosinophils # (Manual) (0-0.7) 10^3/uL Basophils # (Manual) (0-0.1) 10^3/uL Differential Comment Manual Slide Review WBC Morphology (NORMAL) Platelet Estimate (NORMAL) Platelet Morphology (NORMAL) RBC Morph Micro Appear (NORMAL) PT (9.9-12.6) secs INR (0.8-1.2) Anti-Xa Level 0.2 0.3 ( - 0.7) U/mL Sodium 129 L (135-145) mmol/L Potassium 4.1 (3.5-5.0) mmol/L Chloride 98 L (101-111) mmol/L Carbon Dioxide 20 L (21-32) mmol/L Anion Gap 11.0 (6-13) BUN 39 H (6-20) mg/dL Creatinine 1.0 (0.6-1.2) mg/dL Estimated GFR (MDRD) 72 L (>89) Glucose 105 H (70-100) mg/dL Lactic Acid (0.5-2.2) mmol/L Calcium 7.0 L (8.5-10.3) mg/dL Phosphorus 3.1 (2.5-4.6) mg/dL Magnesium 1.7 (1.7-2.8) mg/dL Total Bilirubin 0.5 (0.2-1.0) mg/dL AST 29 (10-42) IU/L ALT 20 (10-60) IU/L Alkaline Phosphatase 64 (42-121) IU/L Troponin I (<0.49) ng/mL B-Natriuretic Peptide (5-100) pg/mL Total Protein 4.3 L (6.7-8.2) g/dL Albumin 1.6 L (3.2-5.5) g/dL Globulin 2.7 (2.1-4.2) g/dL Albumin/Globulin Ratio 0.6 L (1.0-2.2) Urine Color Urine Clarity (CLEAR) Urine pH (5.0-7.5) PH Ur Specific [place] (1.002-1.030) Urine Protein (NEGATIVE) mg/dL Urine Glucose (UA) (NEGATIVE) mg/dL Urine Ketones (NEGATIVE) mg/dL Urine Occult Blood (NEGATIVE) Urine Nitrite (NEGATIVE) Urine Bilirubin (NEGATIVE) Urine Urobilinogen (NORMAL) E.U./dL Ur Leukocyte Esterase (NEGATIVE) Ur Microscopic Review Urine Culture Comments 01/08/18 01/08/18 01/07/18 Range/Units 05:00 05:00 22:48 WBC 39.7 H* (4.8-10.8) x10^3/uL RBC 3.55 L (4.70-6.10) 10^6/uL Hgb 10.8 L (14.0-18.0) g/dL Hct 31.6 L (42.0-52.0) % MCV 89.0 (80.0-94.0) fL MCH 30.5 (27.0-31.0) pg MCHC 34.3 (32.0-36.0) g/dL RDW 14.7 (12.0-15.0) % Plt Count 449 (130-450) 10^3/uL MPV 7.1 L (7.4-11.4) fL Neut # (Auto) 32.0 H Lymph # (Auto) 6.9 H [place] # (Auto) 0.7 Eos # (Auto) 0.0 Baso # (Auto) 0.0 Absolute Nucleated RBC 0.01 Total Counted Band Neuts % (Manual) (0 - 10) % Abnorm Lymph % (Manual) % Nucleated RBC % 0.0 Neutrophils # (Manual) (1.5-6.6) 10^3/uL Lymphocytes # (Manual) (1.5-3.5) 10^3/uL Monocytes # (Manual) (0.0-1.0) 10^3/uL Eosinophils # (Manual) (0-0.7) 10^3/uL Basophils # (Manual) (0-0.1) 10^3/uL Differential Comment Manual Slide Review Indicated WBC Morphology TOXIC GRANULATION (NORMAL) Platelet Estimate NORMAL (130-450,000) (NORMAL) Platelet Morphology NORMAL APPEARANCE (NORMAL) RBC Morph Micro Appear NORMAL APPEARANCE (NORMAL) PT 16.9 H (9.9-12.6) secs INR 1.5 H (0.8-1.2) Anti-Xa Level ( - 0.7) U/mL Sodium (135-145) mmol/L Potassium (3.5-5.0) mmol/L Chloride (101-111) mmol/L Carbon Dioxide (21-32) mmol/L Anion Gap (6-13) BUN (6-20) mg/dL Creatinine (0.6-1.2) mg/dL Estimated GFR (MDRD) (>89) Glucose (70-100) mg/dL Lactic Acid (0.5-2.2) mmol/L Calcium (8.5-10.3) mg/dL Phosphorus (2.5-4.6) mg/dL Magnesium (1.7-2.8) mg/dL Total Bilirubin (0.2-1.0) mg/dL AST (10-42) IU/L ALT (10-60) IU/L Alkaline Phosphatase (42-121) IU/L Troponin I (<0.49) ng/mL B-Natriuretic Peptide 281 H (5-100) pg/mL Total Protein (6.7-8.2) g/dL Albumin (3.2-5.5) g/dL Globulin (2.1-4.2) g/dL Albumin/Globulin Ratio (1.0-2.2) Urine Color Urine Clarity (CLEAR) Urine pH (5.0-7.5) PH Ur Specific [place] (1.002-1.030) Urine Protein (NEGATIVE) mg/dL Urine Glucose (UA) (NEGATIVE) mg/dL Urine Ketones (NEGATIVE) mg/dL Urine Occult Blood (NEGATIVE) Urine Nitrite (NEGATIVE) Urine Bilirubin (NEGATIVE) Urine Urobilinogen (NORMAL) E.U./dL Ur Leukocyte Esterase (NEGATIVE) Ur Microscopic Review Urine Culture Comments 01/07/18 01/07/18 01/07/18 Range/Units 22:48 22:48 22:48 WBC (4.8-10.8) x10^3/uL RBC (4.70-6.10) 10^6/uL Hgb (14.0-18.0) g/dL Hct (42.0-52.0) % MCV (80.0-94.0) fL MCH (27.0-31.0) pg MCHC (32.0-36.0) g/dL RDW (12.0-15.0) % Plt Count (130-450) 10^3/uL MPV (7.4-11.4) fL Neut # (Auto) Lymph # (Auto) [place] # (Auto) Eos # (Auto) Baso # (Auto) Absolute Nucleated RBC Total Counted Band Neuts % (Manual) (0 - 10) % Abnorm Lymph % (Manual) % Nucleated RBC % Neutrophils # (Manual) (1.5-6.6) 10^3/uL Lymphocytes # (Manual) (1.5-3.5) 10^3/uL Monocytes # (Manual) (0.0-1.0) 10^3/uL Eosinophils # (Manual) (0-0.7) 10^3/uL Basophils # (Manual) (0-0.1) 10^3/uL Differential Comment Manual Slide Review WBC Morphology (NORMAL) Platelet Estimate (NORMAL) Platelet Morphology (NORMAL) RBC Morph Micro Appear (NORMAL) PT (9.9-12.6) secs INR (0.8-1.2) Anti-Xa Level 0.1 ( - 0.7) U/mL Sodium 126 L (135-145) mmol/L Potassium 4.2 (3.5-5.0) mmol/L Chloride 97 L (101-111) mmol/L Carbon Dioxide 22 (21-32) mmol/L Anion Gap 7.0 (6-13) BUN 39 H (6-20) mg/dL Creatinine 1.0 (0.6-1.2) mg/dL Estimated GFR (MDRD) 72 L (>89) Glucose 98 (70-100) mg/dL Lactic Acid (0.5-2.2) mmol/L Calcium 6.7 L (8.5-10.3) mg/dL Phosphorus 2.9 (2.5-4.6) mg/dL Magnesium 1.6 L (1.7-2.8) mg/dL Total Bilirubin 0.4 (0.2-1.0) mg/dL AST 30 (10-42) IU/L ALT 19 (10-60) IU/L Alkaline Phosphatase 59 (42-121) IU/L Troponin I 0.05 (<0.49) ng/mL B-Natriuretic Peptide (5-100) pg/mL Total Protein 3.8 L (6.7-8.2) g/dL Albumin 1.4 L (3.2-5.5) g/dL Globulin 2.4 (2.1-4.2) g/dL Albumin/Globulin Ratio 0.6 L (1.0-2.2) Urine Color Urine Clarity (CLEAR) Urine pH (5.0-7.5) PH Ur Specific [place] (1.002-1.030) Urine Protein (NEGATIVE) mg/dL Urine Glucose (UA) (NEGATIVE) mg/dL Urine Ketones (NEGATIVE) mg/dL Urine Occult Blood (NEGATIVE) Urine Nitrite (NEGATIVE) Urine Bilirubin (NEGATIVE) Urine Urobilinogen (NORMAL) E.U./dL Ur Leukocyte Esterase (NEGATIVE) Ur Microscopic Review Urine Culture Comments 01/07/18 01/07/18 01/07/18 Range/Units 22:48 22:48 17:30 WBC 38.0 H* (4.8-10.8) x10^3/uL RBC 3.25 L (4.70-6.10) 10^6/uL Hgb 9.8 L (14.0-18.0) g/dL Hct 29.2 L (42.0-52.0) % MCV 89.8 (80.0-94.0) fL MCH 30.3 (27.0-31.0) pg MCHC 33.7 (32.0-36.0) g/dL RDW 14.5 (12.0-15.0) % Plt Count 411 (130-450) 10^3/uL MPV 6.6 L (7.4-11.4) fL Neut # (Auto) Not Reportable Lymph # (Auto) Not Reportable [place] # (Auto) Not Reportable Eos # (Auto) Not Reportable Baso # (Auto) Not Reportable Absolute Nucleated RBC Not Reportable Total Counted 100 Band Neuts % (Manual) 27 H (0 - 10) % Abnorm Lymph % (Manual) 0 % Nucleated RBC % Not Reportable Neutrophils # (Manual) 35.7 H (1.5-6.6) 10^3/uL Lymphocytes # (Manual) 2.3 (1.5-3.5) 10^3/uL Monocytes # (Manual) 0.0 (0.0-1.0) 10^3/uL Eosinophils # (Manual) 0.0 (0-0.7) 10^3/uL Basophils # (Manual) 0.0 (0-0.1) 10^3/uL Differential Comment MANUAL DIFFERENTIAL Manual Slide Review Indicated WBC Morphology TOXIC GRANULATION (NORMAL) Platelet Estimate NORMAL (130-450,000) (NORMAL) Platelet Morphology NORMAL APPEARANCE (NORMAL) RBC Morph Micro Appear NORMAL APPEARANCE (NORMAL) PT (9.9-12.6) secs INR (0.8-1.2) Anti-Xa Level ( - 0.7) U/mL Sodium (135-145) mmol/L Potassium (3.5-5.0) mmol/L Chloride (101-111) mmol/L Carbon Dioxide (21-32) mmol/L Anion Gap (6-13) BUN (6-20) mg/dL Creatinine (0.6-1.2) mg/dL Estimated GFR (MDRD) (>89) Glucose (70-100) mg/dL Lactic Acid 1.7 (0.5-2.2) mmol/L Calcium (8.5-10.3) mg/dL Phosphorus (2.5-4.6) mg/dL Magnesium (1.7-2.8) mg/dL Total Bilirubin (0.2-1.0) mg/dL AST (10-42) IU/L ALT (10-60) IU/L Alkaline Phosphatase (42-121) IU/L Troponin I (<0.49) ng/mL B-Natriuretic Peptide (5-100) pg/mL Total Protein (6.7-8.2) g/dL Albumin (3.2-5.5) g/dL Globulin (2.1-4.2) g/dL Albumin/Globulin Ratio (1.0-2.2) Urine Color DARK YELLOW Urine Clarity CLEAR (CLEAR) Urine pH 5.5 (5.0-7.5) PH Ur Specific [place] 1.020 (1.002-1.030) Urine Protein NEGATIVE (NEGATIVE) mg/dL Urine Glucose (UA) NEGATIVE (NEGATIVE) mg/dL Urine Ketones NEGATIVE (NEGATIVE) mg/dL Urine Occult Blood NEGATIVE (NEGATIVE) Urine Nitrite NEGATIVE (NEGATIVE) Urine Bilirubin NEGATIVE (NEGATIVE) Urine Urobilinogen 0.2 (NORMAL) (NORMAL) E.U./dL Ur Leukocyte Esterase NEGATIVE (NEGATIVE) Ur Microscopic Review NOT INDICATED Urine Culture Comments NOT INDICATED 01/07/18 Range/Units 15:42 WBC 46.4 H* (4.8-10.8) x10^3/uL RBC (4.70-6.10) 10^6/uL Hgb (14.0-18.0) g/dL Hct (42.0-52.0) % MCV (80.0-94.0) fL MCH (27.0-31.0) pg MCHC (32.0-36.0) g/dL RDW (12.0-15.0) % Plt Count (130-450) 10^3/uL MPV (7.4-11.4) fL Neut # (Auto) Lymph # (Auto) [place] # (Auto) Eos # (Auto) Baso # (Auto) Absolute Nucleated RBC Total Counted Band Neuts % (Manual) (0 - 10) % Abnorm Lymph % (Manual) % Nucleated RBC % Neutrophils # (Manual) (1.5-6.6) 10^3/uL Lymphocytes # (Manual) (1.5-3.5) 10^3/uL Monocytes # (Manual) (0.0-1.0) 10^3/uL Eosinophils # (Manual) (0-0.7) 10^3/uL Basophils # (Manual) (0-0.1) 10^3/uL Differential Comment Manual Slide Review WBC Morphology (NORMAL) Platelet Estimate (NORMAL) Platelet Morphology (NORMAL) RBC Morph Micro Appear (NORMAL) PT (9.9-12.6) secs INR (0.8-1.2) Anti-Xa Level ( - 0.7) U/mL Sodium (135-145) mmol/L Potassium (3.5-5.0) mmol/L Chloride (101-111) mmol/L Carbon Dioxide (21-32) mmol/L Anion Gap (6-13) BUN (6-20) mg/dL Creatinine (0.6-1.2) mg/dL Estimated GFR (MDRD) (>89) Glucose (70-100) mg/dL Lactic Acid (0.5-2.2) mmol/L Calcium (8.5-10.3) mg/dL Phosphorus (2.5-4.6) mg/dL Magnesium (1.7-2.8) mg/dL Total Bilirubin (0.2-1.0) mg/dL AST (10-42) IU/L ALT (10-60) IU/L Alkaline Phosphatase (42-121) IU/L Troponin I (<0.49) ng/mL B-Natriuretic Peptide (5-100) pg/mL Total Protein (6.7-8.2) g/dL Albumin (3.2-5.5) g/dL Globulin (2.1-4.2) g/dL Albumin/Globulin Ratio (1.0-2.2) Urine Color Urine Clarity (CLEAR) Urine pH (5.0-7.5) PH Ur Specific [place] (1.002-1.030) Urine Protein (NEGATIVE) mg/dL Urine Glucose (UA) (NEGATIVE) mg/dL Urine Ketones (NEGATIVE) mg/dL Urine Occult Blood (NEGATIVE) Urine Nitrite (NEGATIVE) Urine Bilirubin (NEGATIVE) Urine Urobilinogen (NORMAL) E.U./dL Ur Leukocyte Esterase (NEGATIVE) Ur Microscopic Review Urine Culture Comments - Diagnostic Imaging Diagnostic Imaging Results: positive: Final report reviewed, Read independently (abd films show NG in good position and markedly dilated colon, up to 13 cm in transverse colon.) Assessment/Plan - Problem List (1) Abdominal distension Impression: 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 Rec: continue bowel rest, NG suction, observation, repeat abd films in am. (2) Severe sepsis Impression: etiology still unclear; agree with plans for MRI of spine and BRUNILDA for further evaluation, and continuing present management.
[2018-01-08] MEDS: ONDANSETRON 4 MG/2 ML VIAL IVP PRN (17:36)
[2018-01-08] MEDS ORDERED: GADOBUTROL 10 MMOL/10 ML VIAL ONE (18:23)
[2018-01-08] MEDS ORDERED: GADOBUTROL 10 MMOL/10 ML VIAL IVP ONE (18:52)
[2018-01-08] MEDS ORDERED: ZINC OXIDE 20% OINT 28.35 GM TUBE TOP PRN (20:25)
[2018-01-09] MEDS: SODIUM CHLORIDE 0.9% 1,000 ML IV SCH ×3 (00:23→11:50)
[2018-01-09] MEDS: HEPARIN 25000UNITS/500ML (D5W) 25,000 UNIT/500 ML BAG IV SCH ×2 (00:24→20:14)
[2018-01-09] MEDS: VANCOMYCIN INJ 1.5 GM in SODIUM CHLORIDE 0.9% 500 ML IV SCH ×2 (00:33→12:49)
[2018-01-09] MEDS: SODIUM CHLORIDE FLUSH 0.9% 10 ML SYRINGE IVP SCH ×3 (01:30→19:31)
[2018-01-09] MEDS: SODIUM CHLORIDE FLUSH 0.9% 10 ML SYRINGE IVP PRN ×3 (01:30→04:31)
[2018-01-09] MEDS: MORPHINE 2 MG/ML CARPUJECT IVP PRN ×6 (02:20→19:31)
[2018-01-09 04:50] LABS: BASOPHILS % (AUTO) 0.1 %; HGB - HEMOGLOBIN 11.6 g/dL (14.0-18.0); LYMPHOCYTES % (AUTO) 22.6 %; MEAN CORPUSCULAR VOLUME 90.9 fL (80.0-94.0); MEAN PLATELET VOLUME 6.9 fL (7.4-11.4); MONOCYTES % (AUTO) 2.8 %; NEUTROPHILS % (AUTO) 74.5 %; PLT - PLATELET COUNT 451 10^3/uL (130-450); RED BLOOD COUNT 3.85 10^6/uL (4.70-6.10); RED CELL DISTRIBUTION WIDTH 14.7 % (12.0-15.0)
[2018-01-09 04:54] LABS: WHITE BLOOD COUNT 35.6 x10^3/uL (4.8-10.8)
[2018-01-09 04:55] LABS: ABNORMAL LYMPHS % (MANUAL) 0 %
[2018-01-09 05:02] LABS: ALBUMIN 1.5 g/dL (3.2-5.5); ALBUMIN/GLOBULIN RATIO 0.5 (1.0-2.2); BILIRUBIN,TOTAL 0.6 mg/dL (0.2-1.0); CALCIUM 6.9 mg/dL (8.5-10.3); MAGNESIUM 2.1 mg/dL (1.7-2.8); PHOSPHORUS 3.2 mg/dL (2.5-4.6); TOTAL PROTEIN 4.3 g/dL (6.7-8.2)
[2018-01-09 05:28] LABS: BAND NEUTROPHILS % (MANUAL) 33 %; LYMPHOCYTES # (MANUAL) 6.1 10^3/uL (1.5-3.5); LYMPHOCYTES % (MANUAL) 17 %; METAMYELOCYTES % (MANUAL) 3 %; MONOCYTES # (MANUAL) 1.8 10^3/uL (0.0-1.0); MYELOCYTES % (MANUAL) 3 %; NEUTROPHILS # (MANUAL) 25.6 10^3/uL (1.5-6.6); NEUTROPHILS % (MANUAL) 39 %
[2018-01-09 05:29] LABS: DIFFERENTIAL COMMENT MANUAL DIFFERENTIAL; PLATELET ESTIMATE, MANUAL NORMAL (130-450,000) (NORMAL); RBC MORPHOLOGY (MULTIPLE) NORMAL APPEARANCE (NORMAL)
[2018-01-09] MEDS: MEROPENEM 1 GM in SODIUM CHLORIDE 0.9% MINIBAG 100 ML IV SCH ×3 (05:54→22:13)
--- NOTE | 2018-01-09 06:01 | MRI Report ---
Reason: s/p laminectomy, severe pain, sepsis Procedure Date: 01/08/2018 Accession Number: [id number] / [id number] Procedure: MRI - Lumbar Spine W/WO CPT Code: FULL RESULT: EXAM: MRI LUMBAR SPINE WITHOUT AND WITH CONTRAST EXAM DATE: 01/08/2018 07:10 PM. CLINICAL HISTORY: S/p laminectomy, severe pain, sepsis. COMPARISONS: MR lumbar spine 12/07/2017, CT abdomen and pelvis 01/07/2018.. TECHNIQUE: Multiplanar, multisequence T1-weighted and fluid-sensitive sequences of the lumbar spine from T12 to S1 before and after administration of intravenous contrast. Other: None. IV contrast: 10 cc Gadavist. FINDINGS: Spinal Canal: The conus terminates at L1-L2. The conus medullaris and cauda equina are unremarkable. Alignment: No scoliosis or spondylolisthesis. Bone Marrow: Five [id number] lumbar vertebral bodies are assumed. Compared to the prior MR, interval vertebroplasty at L3 and L4. Cement is seen extending through the superior endplate of L4 into the disk space, as before. Disk Levels/Facets: T12-L1: No significant abnormality. L1-L2: Mild disk space narrowing. Minimal bulging disk. No significant central stenosis. Mild bilateral foraminal stenosis. T2 signal prolongation within the disk space is new. L2-L3: Interval right-sided laminectomy. Moderate disk space narrowing. No significant central stenosis. Mild bilateral foraminal stenosis. L3-L4: Interval right-sided laminectomy. Central canal appears significantly decompressed since the prior MR. Moderate bilateral foraminal stenosis. T2 signal prolongation within the disk space is new. L4-L5: Moderate disk space narrowing. Interval right-sided laminectomy. No significant central stenosis, central canal appears decompressed. Mild right-sided foraminal stenosis. L5-S1: Severe disk space narrowing. No significant central stenosis. Mild bilateral foraminal stenosis, the appearances unchanged. Spinal Canal: No enhancing masses within the spinal canal. No epidural abscess. Musculature: Expected postoperative change from multilevel right-sided laminectomy. There is also fairly extensive edema seen within the left posterior paraspinal musculature, new since the prior MR. No fluid collection amenable to drainage is identified. Other: The visualized retroperitoneum is unremarkable. IMPRESSION: Degraded by motion. Compared to the MR from 12/07/2017, interval vertebroplasty at L3 and L4. Interval right-sided laminectomy from L2-L3 through L4-L5. Patency of the central canal appears improved over the levels of surgery. T2 signal prolongation within the disk spaces of L2-L3 and L3-L4, new since the prior MR. Early diskitis could have this appearance, there is no adjacent marrow edema or abnormal enhancement, however. No findings concerning for osteomyelitis or epidural abscess. Bilateral posterior paraspinal muscular edema. On the right this is likely related to postoperative changes from laminectomy. Left-sided edema is also present, nonspecific. No fluid collection amenable to drainage identified. RADIA
[2018-01-09] MEDS: ONDANSETRON 4 MG/2 ML VIAL IVP PRN ×2 (07:54→17:13)
--- NOTE | 2018-01-09 08:51 | PROVIDER PROGRESS NOTE ---
Subjective - Prog Note Date Prog Note Date: 01/09/18 Prog Note Time: 08:51 - Subjective Subjective: From yesterday to today, he is stayed on Levophed. Blood pressures remained above 90 systolic but not much more than that. His A. fib rate is controlled. Urine output has been low. NG tube is still in place. 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 Abdomen is less distended and he has had 2 bowel movements. No fever. No further arrhythmias. He is more awake and able to communicate a little bit with his daughters and his . Current Medications - Current Medications Current Medications: Active Medications Acetaminophen (Tylenol) 650 mg WV Q6HR PRN PRN Reason: Pain or Fever > 38C (100.4F) Hydrocodone Bitart/Acetaminophen (Tracy 10 Mg/325 Mg) 1 tab PO Q4HR PRN PRN Reason: Pain 8 to 10 Enoxaparin Sodium (Lovenox) 40 mg SUBQ DAILY [facility] Last Admin: 01/08/18 09:37 Dose: Not Given Heparin Sodium (Beef Lung) () 30 - 50 unit IVP PRN PRN PRN Reason: Central Line Protocol (<24 hr) Famotidine (Pepcid 20 Mg/50 Ml) 50 mls @ 100 mls/hr IV BID YENI Last Infusion: 01/08/18 21:05 Dose: Infused Meropenem 1 gm/ Sodium (Chloride) 100 mls @ 200 mls/hr IV Q8H YENI Last Infusion: 01/09/18 06:30 Dose: Infused Sodium Chloride (Normal Saline 0.9%) 1,000 mls @ 100 mls/hr IV .Q10H YENI Last Admin: 01/09/18 04:52 Dose: Not Given Heparin Sodium/Dextrose () 25,000 unit in 500 mls @ 24.494 mls/hr IV .[id number] YENI; Protocol Last Admin: 01/09/18 00:24 Dose: 17 unit/kg/hr, 27.76 mls/hr Norepinephrine Bitartrate 8 mg (/ Dextrose) 250 mls @ 15 mls/hr IV .[id number] YENI; Protocol Last Admin: 01/08/18 22:06 Dose: 10 mcg/min, 18.75 mls/hr Vancomycin HCl 1.5 gm/ Sodium (Chloride) 500 mls @ 167 mls/hr IV 0100,1300 [facility] Last Infusion: 01/09/18 03:40 Dose: Infused Morphine Sulfate (Morphine (Carpuject)) 2 mg IVP Q2HR PRN PRN Reason: Pain 8 to 10 Last Admin: 01/09/18 04:25 Dose: 2 mg Multi-Ingredient Ointment (Zinc Oxide) 1 applic TOP PRN PRN PRN Reason: Skin Care Last Admin: 01/08/18 21:08 Dose: 1 applic Nicotine (Nicoderm) 1 patch TOP DAILY Y[facility] Last Admin: 01/08/18 11:22 Dose: 1 patch Ondansetron HCl (Zofran Inj) 4 mg IVP Q6HR PRN PRN Reason: Nausea / Vomiting Last Admin: 01/09/18 07:54 Dose: 4 mg Prochlorperazine Edisylate (Compazine Inj) 10 mg IVP Q6HR PRN PRN Reason: Nausea / Vomiting Promethazine HCl (Phenergan Inj) 25 mg IM Q6HR PRN PRN Reason: Nausea / Vomiting Sodium Chloride (Normal Saline Flush 0.9%) 10 ml IVP 0100,0900,1700 [facility] Last Admin: 01/09/18 08:01 Dose: 10 ml Sodium Chloride (Normal Saline Flush 0.9%) 10 ml IVP PRN PRN PRN Reason: NEEDED PER PROVIDER ORDERS Last Admin: 01/09/18 04:31 Dose: 20 ml Aspirin 325 mg PO QDAC 12/31/12 Duloxetine HCl 20 mg PO DAILY 12/26/17 Furosemide 40 mg PO DAILY 12/26/17 Omeprazole [PriLOSEC] 20 mg PO DAILY 12/26/17 Ondansetron [Zofran Odt] 8 mg PO TID PRN 12/26/17 Polyethylene Glycol 3350 [Miralax] 17 gm PO DAILY 12/26/17 Potassium Chloride [Klor-Con M20] 20 meq PO DAILY 12/26/17 Senna [Senokot] 8.6 mg PO BID PRN 12/26/17 Spironolactone 50 mg PO BID 12/26/17 Tamsulosin HCl [Flomax] 0.8 mg PO DAILY 12/26/17 traMADol [Ultram] 50 mg PO QID PRN 12/26/17 Objective - Vital Signs/Intake & Output Reviewed Vital Signs: Yes Vital Signs: Vital Signs Pulse Resp BP Pulse Ox 01/09/18 08:00 116 H 17 97 99 01/09/18 07:00 115 H 17 97 01/09/18 06:00 114 H 16 97/65 97 01/09/18 05:00 113 H 14 /67 97 Intake & Output: Intake & Output 01/06/18 01/07/18 01/08/18 01/09/18 23:59 23:59 23:59 23:59 Intake Total 1250.5 8551.432 1199.568 Output Total 1745 395 Balance 1250.5 6806.432 804.568 - Objective General Appearance: positive: No acute distress, Lethargic Eyes Bilateral: positive: PERRL ENT: positive: Dry mucous membranes Neck: positive: No JVD. negative: Stiff neck, Carotid bruit Respiratory: positive: Chest non-tender, No respiratory distress, Rales, Rhonchi. negative: Wheezes Cardiovascular: positive: Irregularly irregular. negative: Gallop/S4, Friction rub Abdomen: positive: No organomegaly, Nml bowel sounds, No distention. negative: Guarding, Rebound Skin: positive: Warm, Pallor Extremities: positive: Full ROM, Pedal edema (Is still with anasarca) Neurologic/Psychiatric: positive: Disoriented to person, Disoriented to place, Disoriented to time, Weakness, Slurred/abnml speech - Lab Results Fish Bones: 01/09/18 04:30 01/09/18 04:30 Other Labs: Lab Results x24hrs 01/09/18 01/09/18 01/09/18 Range/Units 08:00 04:30 04:30 WBC 35.6 H* (4.8-10.8) x10^3/uL RBC 3.85 L (4.70-6.10) 10^6/uL Hgb 11.6 L (14.0-18.0) g/dL Hct 35.0 L (42.0-52.0) % MCV 90.9 (80.0-94.0) fL MCH 30.0 (27.0-31.0) pg MCHC 33.0 (32.0-36.0) g/dL RDW 14.7 (12.0-15.0) % Plt Count 451 H (130-450) 10^3/uL MPV 6.9 L (7.4-11.4) fL Neut # (Auto) Not Reportable Lymph # (Auto) Not Reportable [place] # (Auto) Not Reportable Eos # (Auto) Not Reportable Baso # (Auto) Not Reportable Absolute Nucleated RBC Not Reportable Total Counted 100 Band Neuts % (Manual) 33 H (0 - 10) % Abnorm Lymph % (Manual) 0 % Metamyelocytes % 3 H ( - 0) % Myelocytes % 3 H ( - 0) % Nucleated RBC % Not Reportable Neutrophils # (Manual) 25.6 H (1.5-6.6) 10^3/uL Lymphocytes # (Manual) 6.1 H (1.5-3.5) 10^3/uL Monocytes # (Manual) 1.8 H (0.0-1.0) 10^3/uL Eosinophils # (Manual) 0.0 (0-0.7) 10^3/uL Basophils # (Manual) 0.0 (0-0.1) 10^3/uL Differential Comment MANUAL DIFFERENTIAL Platelet Estimate NORMAL (130-450,000) (NORMAL) RBC Morph Micro Appear NORMAL APPEARANCE (NORMAL) Anti-Xa Level 0.3 ( - 0.7) U/mL Sodium 131 L (135-145) mmol/L Potassium 4.5 (3.5-5.0) mmol/L Chloride 103 (101-111) mmol/L Carbon Dioxide 19 L (21-32) mmol/L Anion Gap 9.0 (6-13) BUN 40 H (6-20) mg/dL Creatinine 1.0 (0.6-1.2) mg/dL Estimated GFR (MDRD) 72 L (>89) Glucose 133 H (70-100) mg/dL Calcium 6.9 L (8.5-10.3) mg/dL Phosphorus 3.2 (2.5-4.6) mg/dL Magnesium 2.1 (1.7-2.8) mg/dL Total Bilirubin 0.6 (0.2-1.0) mg/dL AST 26 (10-42) IU/L ALT 19 (10-60) IU/L Alkaline Phosphatase 63 (42-121) IU/L Total Protein 4.3 L (6.7-8.2) g/dL Albumin 1.5 L (3.2-5.5) g/dL Globulin 2.8 (2.1-4.2) g/dL Albumin/Globulin Ratio 0.5 L (1.0-2.2) 01/09/18 01/08/18 01/08/18 Range/Units 01:20 16:14 09:49 WBC (4.8-10.8) x10^3/uL RBC (4.70-6.10) 10^6/uL Hgb (14.0-18.0) g/dL Hct (42.0-52.0) % MCV (80.0-94.0) fL MCH (27.0-31.0) pg MCHC (32.0-36.0) g/dL RDW (12.0-15.0) % Plt Count (130-450) 10^3/uL MPV (7.4-11.4) fL Neut # (Auto) Lymph # (Auto) [place] # (Auto) Eos # (Auto) Baso # (Auto) Absolute Nucleated RBC Total Counted Band Neuts % (Manual) (0 - 10) % Abnorm Lymph % (Manual) % Metamyelocytes % ( - 0) % Myelocytes % ( - 0) % Nucleated RBC % Neutrophils # (Manual) (1.5-6.6) 10^3/uL Lymphocytes # (Manual) (1.5-3.5) 10^3/uL Monocytes # (Manual) (0.0-1.0) 10^3/uL Eosinophils # (Manual) (0-0.7) 10^3/uL Basophils # (Manual) (0-0.1) 10^3/uL Differential Comment Platelet Estimate (NORMAL) RBC Morph Micro Appear (NORMAL) Anti-Xa Level 0.3 0.2 0.3 ( - 0.7) U/mL Sodium (135-145) mmol/L Potassium (3.5-5.0) mmol/L Chloride (101-111) mmol/L Carbon Dioxide (21-32) mmol/L Anion Gap (6-13) BUN (6-20) mg/dL Creatinine (0.6-1.2) mg/dL Estimated GFR (MDRD) (>89) Glucose (70-100) mg/dL Calcium (8.5-10.3) mg/dL Phosphorus (2.5-4.6) mg/dL Magnesium (1.7-2.8) mg/dL Total Bilirubin (0.2-1.0) mg/dL AST (10-42) IU/L ALT (10-60) IU/L Alkaline Phosphatase (42-121) IU/L Total Protein (6.7-8.2) g/dL Albumin (3.2-5.5) g/dL Globulin (2.1-4.2) g/dL Albumin/Globulin Ratio (1.0-2.2) Assessment/Plan - Problem List (1) Severe sepsis Impression: Patient presented to the emergency department with severe sepsis with heart rate in the 120s, respiratory rate of 24, hypotension and leukocytosis of 46.4 with a 31% bandemia. The patient also had lethargy due to metabolic encephalopathy, acute kidney injury and an elevated lactic acid of 2.4 on presentation. The patient was recently hospitalized for UTI with ESBL producing Klebsiella pneumonia. The patient's urinalysis on presentation however was negative. The patient presented with abdominal distention, abdominal pain, back pain, nausea and vomiting. Initially the source of the patient's infection was thought to likely be an intra-abdominal source. Patient underwent CT of his abdomen and pelvis as well as CT angiogram of chest abdomen and pelvis. The imaging revealed a partial distal colonic obstruction, consolidation of the lower lungs and right sided pulmonary emboli. Given these findings likely source is healthcare associated pneumonia given the patient's recent hospitalization. However the patient also had recent spinal surgery and the pulmonary emboli could be septic emboli. It is therefore also imperative that we rule out possibility of spinal abscess as well as possibility of endocarditis. The patient also was found to have possible rectal abscess with CT however surgery was consulted and ruled out the possibility of a rectal abscess at this time. He has not responded to IVF and abx. Still hypotensive and less and less responsi ve 10/2. After levophed more awake by afternoon, spoke to family.Source is still not clear. Still on levophed and UOP is low today. Plan: Continue to treat with broad-spectrum IV antibiotics vancomycin and meropenem, Day #3 Continue IV fluids Blood cultures no growth at 24 hours Echocardiogram And shows poorly visualized valves. So we cannot see or assess for vegetations. His aortic root is dilated to 4.6 cm. Left ventricular ejection fraction hyperdynamic at 75% ejection fraction. Small pericardial effusion. MRI lumbar spine Degraded by motion. He has had an interval vertebroplasty, laminectomy. Early discitis may be. No findings concerning for osteomyelitis or epidural abscess. Some edema of the paraspinal muscles. But no abscess, no infection. He Remains on levophed. Being monitored closely in the intensive care unit and he is Minimally responding to IVF and IV abx. He is not worse than yesterday, with very slight improvement, but still in critical condition Continue Levophed. Central line placement done (2) HCAP (healthcare-associated pneumonia) Conclusion/Plan: The patient presented with severe sepsis with unclear source. Currently the only possible source that has been found is pneumonia. The patient's CT abdomen pelvis revealed bilateral pleural effusions with underlying consolidation right more than left. Given that the patient has been bedbound on narcotics and dealing with the pain he was at high risk for pneumonia. He has had likely atelectasis and may have developed pneumonia which could have been the cause of his presenting sepsis. The patient is only mildly hypoxic and was tachypneic on presentation. The patient has not been having fevers. The patient has not been having significant respiratory distress. The patient was recently hospitalized and therefore will be treated as a healthcare associated pneumonia. So far his oxygen requirement has been stable at 3 liters. Plan IV antibiotics with vancomycin and meropenem for broad coverage. Day #3 IV fluids Supplemental oxygen Blood cultures As above I have discussed his wishes from last admission where he told me he did not want to be intubated if he stopped breathing. remembers that conversation. Daughter is here. He was supposed to have discussed this with her and feel that a new POLST form. But they never did it last admission. Long discussion 01/08. Daughter #2 Is here from [place]. They both feel that their dad should not be intubated and resuscitated further. However they are still in discussions with her stepmother. (3) Bowel obstruction Conclusion/Plan: Patient had a recent admission where he had a small bowel obstruction secondary to ileus which appeared to have resolved. Now patient has had no bowel movement for the last 3 days and has been having increasing abdominal distention, abdominal pain and nausea and vomiting. The patient's CT of the abdomen reveals a distended colon concerning for likely ileus versus partial distal colon obstruction. Most likely this is secondary to a ileus given his risk factors of having had a recent spinal surgery, being primarily bedbound with decreased ambulation, being on chronic opioids and with ongoing sepsis. He is less distended. General surgery will be signing off. He has had 2 liquid stools today.Fecal occult blood positive but not black and tarry. Plan: IV fluids N.p.o. With oral Tylenol, Cymbalta discontinued Surgical consult considered I did not think he is a candidate for surgery because of his critical status. Nevertheless, courtesy call by general surgery. NG was maintained throughout the night. He has limited NG output this morning. Had bowel movements. Limit IV narcotics But I do not want him to go through withdrawal, and have stopped p.o. medications IV antiemetics Once patient is improved encourage ambulation. Pull NG this afternoon if he remains stable this morning. Surgery will sign off. Qualifiers: Intestinal obstruction type: unspecified ileus Qualified Code(s): K56.7 - Ileus, unspecified (4) Pulmonary embolism Conclusion/Plan: The patient had a recent spinal surgery in December and has been primarily bedbound since the surgery limited to a bed and wheelchair with limited ability to participate in physical therapy. The patient is very high risk for a pulmonary embolism and CT angiogram done of chest and the abdomen shows small right sided pulmonary emboli. Patient will be treated with anticoagulation. For now we will continue on IV heparin infusion in case patient needs any surgical intervention. Echocardiogram to look for right heart strain could not see ventricle well. So no help there. Endocarditis not able to be assessed. Qualifiers: Pulmonary embolism type: other Chronicity: acute Acute cor pulmonale presence: without acute cor pulmonale Qualified Code(s): I26.99 - Other pulmonary embolism without acute cor pulmonale (5) Metabolic encephalopathy Conclusion/Plan: The patient appears to have metabolic encephalopathy which is likely secondary to sepsis. Although the patient is also on narcotics which could also be contributing to his lethargy. For now while patient is lethargic his oral na rcotics will be held. Still on IV since I don't want him to withdraw. We will treat his sepsis with IV antibiotics and fluids. We will continue to monitor the patient's encephalopathy. If the patient continues to have lethargy despite treatment we will need to consider getting a CT of his head. He is more awake and verbal than yesterday. No CT for now. (6) AGUEDA (acute kidney injury) Conclusion/Plan: On presentation to the emergency department the patient does have acute kidney injury with a creatinine of 1.3 which is elevated from his baseline of 0.6. Patient's renal failure appears to be prerenal secondary to dehydration from sepsis. Creatinine now down to 1.0 . Plan: IV fluids Monitor creatinine Avoid nephrotoxic agents Hold diuretics (7) Hyponatremia Conclusion/Plan: The patient presents with hyponatremia. His sodium on presentation is 122 which is significantly below his baseline. The patient appears to have hypovolemic hyponatremia as he is very dry on exam and patient and hypotensive on pre sentation. This is likely secondary to sepsis. Patient will be given IV fluids and we will continue to monitor his sodium. He has gone from 122>126> 129 and 131 this am. (8) B-cell lymphoproliferative disorder Conclusion/Plan: The patient underwent a bone marrow biopsy in December when he had his spinal surgery. 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 The patient is to follow-up in the MAC clinic on February 06 for in itial assessment. The patient has a leukocytosis of 46.4 on presentation however speaking to the lab there are no abnormal cells or blasts and the differential looks very much like inflammation or infection with a significant bandemia. For now plan will be for patient to follow-up as an outpatient with oncology regarding his bone marrow biopsy. Patient's current leukocytosis appears to be secondary to sepsis and not related to his lymphoproliferative disorder. (9) Chronic atrial fibrillation Conclusion/Plan: The patient has a history of chronic atrial fibrillation. He is not on Coumadin nor is he on anything for rate control. On presentation to the emergency department the patient is tachycardic with heart rate in the 120s. This appears to be a normal response to his sepsis rather than A. fib with rapid ventricular rate. We will continue to monitor the patient on telemetry and patient will get an echocardiogram while he is hospitalized. The patient will be started on anticoagulation given his finding of pulmonary embolism and there will need to be further discussion with his primary care physician as to whether the patient should be on chronic anticoagulation with his history of A. fib. (10) Obstructive uropathy Conclusion/Plan: The patient recently has developed obstructive uropathy for which he has an indwelling Gutierrez catheter. The patient was recently admitted with urinary tract infection growing ESBL producing Klebsiella pneumonia. Patient's obstructive uropathy is likely secondary to his BPH but also likely worsened due to his need for chronic opioids due to his back pain. We will continue with his chronic Gutierrez catheter. (11) Status post laminectomy Conclusion/Plan: Surgery done 12/18/2017 Given the patient's ongoing sepsis we will get an MRI of the patient's lumbar spine to rule out a spinal abscess although given the patient's symptoms this does appear to be less likely. Once patient is recovering from sepsis we will need to restart physical therapy. Patient will be continued on narcotics for pain relief once he is more alert and awake. (12) UTI (urinary tract infection) Conclusion/Plan: Patient was recently admitted for urinary tract infection. The patient's urine culture grew ESBL producing Klebsiella pneumonia which was susceptible to Levaquin and patient completed treatment. The patient's urinalysis is negative on presentation despite presenting with sepsis. The patient's sepsis appears to be from other source. The patient continues to have an indwelling Gutierrez cath eter.
[2018-01-09] MEDS: FAMOTIDINE 20 MG/50 ML 50 ML IV SCH ×2 (09:08→22:14)
[2018-01-09] MEDS: PROCHLORPERAZINE 10 MG/2 ML VIAL IVP PRN ×2 (09:27→19:31)
[2018-01-09] MEDS: NICOTINE 21 MG PATCH TOP SCH (10:16)
[2018-01-09] MEDS ORDERED: FUROSEMIDE 20 MG/2 ML VIAL IVP STA (15:01)
[2018-01-09] MEDS ORDERED: FUROSEMIDE 20 MG/2 ML VIAL IVP ONE (15:10)
--- NOTE | 2018-01-09 17:45 | PROVIDER PROGRESS NOTE ---
Subjective - Prog Note Date Prog Note Date: 01/09/18 - Subjective Pt reports feeling: No change (somewhat less alert than last night, but able to answer questions, c/o nausea and low back pain, but denies abdominal pain) Objective - Vital Signs/Intake & Output Reviewed Vital Signs: Yes Vital Signs: Vital Signs Temp Pulse Resp BP Pulse Ox 01/09/18 17:00 114 H 14 95/70 97 01/09/18 16:00 37.1 C 117 H 22 100/79 97 01/09/18 15:00 116 H 22 94/70 97 01/09/18 14:00 114 H 14 92/78 96 Intake & Output: Intake & Output 01/06/18 01/07/18 01/08/18 01/09/18 23:59 23:59 23:59 23:59 Intake Total 1250.5 8551.432 2499.568 Output Total 1745 537 Balance 1250.5 6806.432 1962.568 - Objective General Appearance: positive: Moderate distress Eyes Bilateral: positive: Conjunctivae nml, No scleral icterus Abdomen: positive: Abnml bowel sounds (hypoactive), Other (moderately distended but soft,nontender(except at umbilical hernia which is reducible); no guarding/rebound or peritoneal signs; passing liquid grossly nonbloody stool.). negative: Guarding, Rebound, Hepatomegaly, Splenomegaly, Mass Extremities: positive: Pedal edema (anasarca present) - Lab Results Fish Bones: 01/09/18 04:30 01/09/18 04:30 Other Labs: Lab Results x24hrs 01/09/18 01/09/18 01/09/18 Range/Units 08:00 04:30 04:30 WBC 35.6 H* (4.8-10.8) x10^3/uL RBC 3.85 L (4.70-6.10) 10^6/uL Hgb 11.6 L (14.0-18.0) g/dL Hct 35.0 L (42.0-52.0) % MCV 90.9 (80.0-94.0) fL MCH 30.0 (27.0-31.0) pg MCHC 33.0 (32.0-36.0) g/dL RDW 14.7 (12.0-15.0) % Plt Count 451 H (130-450) 10^3/uL MPV 6.9 L (7.4-11.4) fL Neut # (Auto) Not Reportable Lymph # (Auto) Not Reportable [place] # (Auto) Not Reportable Eos # (Auto) Not Reportable Baso # (Auto) Not Reportable Absolute Nucleated RBC Not Reportable Total Counted 100 Band Neuts % (Manual) 33 H (0 - 10) % Abnorm Lymph % (Manual) 0 % Metamyelocytes % 3 H ( - 0) % Myelocytes % 3 H ( - 0) % Nucleated RBC % Not Reportable Neutrophils # (Manual) 25.6 H (1.5-6.6) 10^3/uL Lymphocytes # (Manual) 6.1 H (1.5-3.5) 10^3/uL Monocytes # (Manual) 1.8 H (0.0-1.0) 10^3/uL Eosinophils # (Manual) 0.0 (0-0.7) 10^3/uL Basophils # (Manual) 0.0 (0-0.1) 10^3/uL Differential Comment MANUAL DIFFERENTIAL Platelet Estimate NORMAL (130-450,000) (NORMAL) RBC Morph Micro Appear NORMAL APPEARANCE (NORMAL) Anti-Xa Level 0.3 ( - 0.7) U/mL Sodium 131 L (135-145) mmol/L Potassium 4.5 (3.5-5.0) mmol/L Chloride 103 (101-111) mmol/L Carbon Dioxide 19 L (21-32) mmol/L Anion Gap 9.0 (6-13) BUN 40 H (6-20) mg/dL Creatinine 1.0 (0.6-1.2) mg/dL Estimated GFR (MDRD) 72 L (>89) Glucose 133 H (70-100) mg/dL Calcium 6.9 L (8.5-10.3) mg/dL Phosphorus 3.2 (2.5-4.6) mg/dL Magnesium 2.1 (1.7-2.8) mg/dL Total Bilirubin 0.6 (0.2-1.0) mg/dL AST 26 (10-42) IU/L ALT 19 (10-60) IU/L Alkaline Phosphatase 63 (42-121) IU/L Total Protein 4.3 L (6.7-8.2) g/dL Albumin 1.5 L (3.2-5.5) g/dL Globulin 2.8 (2.1-4.2) g/dL Albumin/Globulin Ratio 0.5 L (1.0-2.2) 01/09/18 Range/Units 01:20 WBC (4.8-10.8) x10^3/uL RBC (4.70-6.10) 10^6/uL Hgb (14.0-18.0) g/dL Hct (42.0-52.0) % MCV (80.0-94.0) fL MCH (27.0-31.0) pg MCHC (32.0-36.0) g/dL RDW (12.0-15.0) % Plt Count (130-450) 10^3/uL MPV (7.4-11.4) fL Neut # (Auto) Lymph # (Auto) [place] # (Auto) Eos # (Auto) Baso # (Auto) Absolute Nucleated RBC Total Counted Band Neuts % (Manual) (0 - 10) % Abnorm Lymph % (Manual) % Metamyelocytes % ( - 0) % Myelocytes % ( - 0) % Nucleated RBC % Neutrophils # (Manual) (1.5-6.6) 10^3/uL Lymphocytes # (Manual) (1.5-3.5) 10^3/uL Monocytes # (Manual) (0.0-1.0) 10^3/uL Eosinophils # (Manual) (0-0.7) 10^3/uL Basophils # (Manual) (0-0.1) 10^3/uL Differential Comment Platelet Estimate (NORMAL) RBC Morph Micro Appear (NORMAL) Anti-Xa Level 0.3 ( - 0.7) U/mL Sodium (135-145) mmol/L Potassium (3.5-5.0) mmol/L Chloride (101-111) mmol/L Carbon Dioxide (21-32) mmol/L Anion Gap (6-13) BUN (6-20) mg/dL Creatinine (0.6-1.2) mg/dL Estimated GFR (MDRD) (>89) Glucose (70-100) mg/dL Calcium (8.5-10.3) mg/dL Phosphorus (2.5-4.6) mg/dL Magnesium (1.7-2.8) mg/dL Total Bilirubin (0.2-1.0) mg/dL AST (10-42) IU/L ALT (10-60) IU/L Alkaline Phosphatase (42-121) IU/L Total Protein (6.7-8.2) g/dL Albumin (3.2-5.5) g/dL Globulin (2.1-4.2) g/dL Albumin/Globulin Ratio (1.0-2.2) Assessment/Plan - Problem List (1) Abdominal distension Impression: 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 Improved since admission. Consider removing NG tube for comfort and better pulmonary function given minimal output to date. Will not see again unless asked.
[2018-01-10] MEDS: VANCOMYCIN INJ 1.5 GM in SODIUM CHLORIDE 0.9% 500 ML IV SCH (00:28)
[2018-01-10] MEDS: SODIUM CHLORIDE 0.9% 1,000 ML IV SCH ×3 (00:28→18:46)
[2018-01-10] MEDS: SODIUM CHLORIDE FLUSH 0.9% 10 ML SYRINGE IVP SCH ×3 (00:47→18:45)
[2018-01-10] MEDS: SODIUM CHLORIDE FLUSH 0.9% 10 ML SYRINGE IVP PRN ×2 (00:47→04:41)
[2018-01-10] MEDS: MORPHINE 2 MG/ML CARPUJECT IVP PRN ×5 (00:48→23:10)
[2018-01-10 05:16] LABS: BASOPHILS % (AUTO) 0.1 %; HGB - HEMOGLOBIN 11.7 g/dL (14.0-18.0); LYMPHOCYTES % (AUTO) 21.6 %; MEAN CORPUSCULAR HEMOGLOBIN 29.8 pg (27.0-31.0); MEAN CORPUSCULAR HGB CONC 32.8 g/dL (32.0-36.0); MEAN CORPUSCULAR VOLUME 90.8 fL (80.0-94.0); MEAN PLATELET VOLUME 6.9 fL (7.4-11.4); MONOCYTES % (AUTO) 2.4 %; NEUTROPHILS % (AUTO) 75.9 %; PLT - PLATELET COUNT 335 10^3/uL (130-450); RED BLOOD COUNT 3.92 10^6/uL (4.70-6.10)
[2018-01-10 05:20] LABS: ALBUMIN 1.4 g/dL (3.2-5.5); ALBUMIN/GLOBULIN RATIO 0.5 (1.0-2.2); BILIRUBIN,TOTAL 0.5 mg/dL (0.2-1.0); CREATININE 1.3 mg/dL (0.6-1.2); MAGNESIUM 2.1 mg/dL (1.7-2.8); PHOSPHORUS 4.2 mg/dL (2.5-4.6); TOTAL PROTEIN 4.3 g/dL (6.7-8.2)
[2018-01-10] MEDS ORDERED: SODIUM CHLORIDE 0.9% 500 ML IV ONE (05:26)
[2018-01-10 05:30] LABS: WHITE BLOOD COUNT 38.8 x10^3/uL (4.8-10.8)
[2018-01-10 05:31] LABS: ABNORMAL LYMPHS % (MANUAL) 0 %
[2018-01-10 05:55] LABS: BAND NEUTROPHILS % (MANUAL) 32 %; EOSINOPHILS # (MANUAL) 0.4 10^3/uL (0-0.7); LYMPHOCYTES # (MANUAL) 8.1 10^3/uL (1.5-3.5); LYMPHOCYTES % (MANUAL) 21 %; METAMYELOCYTES % (MANUAL) 4 %; MONOCYTES # (MANUAL) 2.3 10^3/uL (0.0-1.0); MYELOCYTES % (MANUAL) 4 %; NEUTROPHILS # (MANUAL) 24.8 10^3/uL (1.5-6.6); NEUTROPHILS % (MANUAL) 32 %
[2018-01-10 05:56] LABS: DIFFERENTIAL COMMENT MANUAL DIFFERENTIAL; PLATELET ESTIMATE, MANUAL NORMAL (130-450,000) (NORMAL); RBC MORPHOLOGY (MULTIPLE) NORMAL APPEARANCE (NORMAL)
[2018-01-10] MEDS: MEROPENEM 1 GM in SODIUM CHLORIDE 0.9% MINIBAG 100 ML IV SCH ×3 (06:16→22:15)
[2018-01-10] MEDS: ONDANSETRON 4 MG/2 ML VIAL IVP PRN (08:08)
[2018-01-10] MEDS: FAMOTIDINE 20 MG/50 ML 50 ML IV SCH ×2 (09:41→21:17)
[2018-01-10] MEDS: NICOTINE 21 MG PATCH TOP SCH (09:42)
[2018-01-10] MEDS: HYDROcod/ACETAM 10 MG/325 MG TABLET PO PRN ×2 (11:41→22:18)
[2018-01-10 12:03] LABS: VANCOMYCIN,RANDOM 38.6 ug/mL
[2018-01-10] MEDS: HEPARIN 25000UNITS/500ML (D5W) 25,000 UNIT/500 ML BAG IV SCH (14:39)
--- NOTE | 2018-01-10 17:17 | PROVIDER PROGRESS NOTE ---
Subjective - Prog Note Date Prog Note Date: 01/10/18 Prog Note Time: 17:23 - Subjective Subjective: He has been more awake than is been the last 3 days. His one daughter who flew in from [place] is pleased with his alertness. His , and [id number] are also able to communicate with him effectively. He is just miserable with back pain. He still lethargic. Sometimes difficult to arouse and will go back to sleep. But really, the most alert he has been since he has been here. Able to communicate in full sentences. In the last hour, we have had to increase his levo fed from 10 mics to 16 mics. With that systolic is still in the high 70s. Oxygen is the same, urine output has been minimal. He is close to 15 L positive now. Family was able to get together to fill out a POLST form. He has been changed to DO NOT RESUSCITATE with limited intervention. Current Medications - Current Medications Current Medications: Active Medications Acetaminophen (Tylenol) 650 mg IN Q6HR PRN PRN Reason: Pain or Fever > 38C (100.4F) Hydrocodone Bitart/Acetaminophen ([place] 10 Mg/325 Mg) 1 tab PO Q4HR PRN PRN Reason: Pain 8 to 10 Last Admin: 01/10/18 11:41 Dose: 1 tab Heparin Sodium (Beef Lung) () 30 - 50 unit IVP PRN PRN PRN Reason: Central Line Protocol (<24 hr) Famotidine (Pepcid 20 Mg/50 Ml) 50 mls @ 100 mls/hr IV BID [facility] Last Infusion: 01/10/18 10:20 Dose: Infused Meropenem 1 gm/ Sodium (Chloride) 100 mls @ 200 mls/hr IV Q8H [facility] Last Infusion: 01/10/18 15:15 Dose: Infused Sodium Chloride (Normal Saline 0.9%) 1,000 mls @ 100 mls/hr IV .Q10H [facility] Last Admin: 01/10/18 06:58 Dose: 100 mls/hr Heparin Sodium/Dextrose () 25,000 unit in 500 mls @ 24.494 mls/hr IV .[id number] [facility]; Protocol Last Titration: 01/10/18 14:39 Dose: Infused Norepinephrine Bitartrate 8 mg (/ Dextrose) 250 mls @ 15 mls/hr IV .[id number] [facility]; Protocol Last Titration: 01/10/18 16:40 Dose: 16 mcg/min, 30 mls/hr Morphine Sulfate (Morphine (Carpuject)) 2 mg IVP Q2HR PRN PRN Reason: Pain 8 to 10 Last Admin: 01/10/18 13:55 Dose: 2 mg Multi-Ingredient Ointment (Zinc Oxide) 1 applic TOP PRN PRN PRN Reason: Skin Care Last Admin: 01/08/18 21:08 Dose: 1 applic Nicotine (Nicoderm) 1 patch TOP DAILY [facility] Last Admin: 01/10/18 09:42 Dose: 1 patch Ondansetron HCl (Zofran Inj) 4 mg IVP Q6HR PRN PRN Reason: Nausea / Vomiting Last Admin: 01/10/18 08:08 Dose: 4 mg Prochlorperazine Edisylate (Compazine Inj) 10 mg IVP Q6HR PRN PRN Reason: Nausea / Vomiting Last Admin: 01/09/18 19:31 Dose: 10 mg Promethazine HCl (Phenergan Inj) 25 mg IM Q6HR PRN PRN Reason: Nausea / Vomiting Sodium Chloride (Normal Saline Flush 0.9%) 10 ml IVP 0100,0900,1700 [facility] Last Admin: 01/10/18 11:50 Dose: 10 ml Sodium Chloride (Normal Saline Flush 0.9%) 10 ml IVP PRN PRN PRN Reason: NEEDED PER PROVIDER ORDERS Last Admin: 01/10/18 04:41 Dose: 20 ml Aspirin 325 mg PO QDAC 12/31/12 Duloxetine HCl 20 mg PO DAILY 12/26/17 Furosemide 40 mg PO DAILY 12/26/17 Omeprazole [PriLOSEC] 20 mg PO DAILY 12/26/17 Ondansetron [Zofran Odt] 8 mg PO TID PRN 12/26/17 Polyethylene Glycol 3350 [Miralax] 17 gm PO DAILY 12/26/17 Potassium Chloride [Klor-Con M20] 20 meq PO DAILY 12/26/17 Senna [Senokot] 8.6 mg PO BID PRN 12/26/17 Spironolactone 50 mg PO BID 12/26/17 Tamsulosin HCl [Flomax] 0.8 mg PO DAILY 12/26/17 traMADol [Ultram] 50 mg PO QID PRN 12/26/17 Objective - Vital Signs/Intake & Output Reviewed Vital Signs: Yes Vital Signs: Vital Signs Temp Pulse Resp BP Pulse Ox 01/10/18 16:00 36.0 C L 20 82/62 L 100 01/10/18 15:00 110 H 22 82/65 L 96 01/10/18 14:00 114 H 20 89/65 L 95 Intake & Output: Intake & Output 01/07/18 01/08/18 01/09/18 01/10/18 23:59 23:59 23:59 23:59 Intake Total 1250.5 8551.432 3749.568 3550.300 Output Total 1745 752 253 Balance 1250.5 6806.432 2997.568 3297.300 - Objective General Appearance: positive: No acute distress, Other (Sleepy, but eyes are open and he is speaking in full sentences. He actually thanks me as I leave for taking care of him. He is rolled over on his right side, saying that his back pain is just so severe. , [id number], daughter from [place] at the bedside.) Eyes Bilateral: positive: PERRL, EOMI ENT: positive: Dry mucous membranes Neck: positive: Other (I really cannot assess for JVD in this position). negative: Stiff neck, Carotid bruit Respiratory: positive: Chest non-tender, No respiratory distress, Rales, Rhonchi Cardiovascular: positive: Irregularly irregular, Tachycardia (To the low 100s). negative: Gallop/S4, Friction rub Abdomen: positive: Nml bowel sounds, Other (I still think he looks distended). negative: Guarding, Rebound Skin: positive: Other (Diffuse anasarca, arms and legs are big with edema) Neurologic/Psychiatric: positive: Motor nml, Disoriented to time, Weakness (Diffuse weakness. Severe enough that rolling over needs to be done by the nurse. He can barely lift his arms and cannot lift his legs.Alertness waxes and wanes.) - Lab Results Fish Bones: 01/10/18 04:42 01/10/18 04:42 Other Labs: Lab Results x24hrs 01/10/18 01/10/18 01/10/18 Range/Units 11:49 04:42 04:42 WBC (4.8-10.8) x10^3/uL RBC (4.70-6.10) 10^6/uL Hgb (14.0-18.0) g/dL Hct (42.0-52.0) % MCV (80.0-94.0) fL MCH (27.0-31.0) pg MCHC (32.0-36.0) g/dL RDW (12.0-15.0) % Plt Count (130-450) 10^3/uL MPV (7.4-11.4) fL Neut # (Auto) Lymph # (Auto) [place] # (Auto) Eos # (Auto) Baso # (Auto) Absolute Nucleated RBC Total Counted Band Neuts % (Manual) (0 - 10) % Abnorm Lymph % (Manual) % Metamyelocytes % ( - 0) % Myelocytes % ( - 0) % Nucleated RBC % Neutrophils # (Manual) (1.5-6.6) 10^3/uL Lymphocytes # (Manual) (1.5-3.5) 10^3/uL Monocytes # (Manual) (0.0-1.0) 10^3/uL Eosinophils # (Manual) (0-0.7) 10^3/uL Basophils # (Manual) (0-0.1) 10^3/uL Differential Comment Platelet Estimate (NORMAL) RBC Morph Micro Appear (NORMAL) Anti-Xa Level 0.5 ( - 0.7) U/mL Sodium 132 L (135-145) mmol/L Potassium 4.5 (3.5-5.0) mmol/L Chloride 106 (101-111) mmol/L Carbon Dioxide 19 L (21-32) mmol/L Anion Gap 7.0 (6-13) BUN 49 H (6-20) mg/dL Creatinine 1.3 H (0.6-1.2) mg/dL Estimated GFR (MDRD) 53 L (>89) Glucose 123 H (70-100) mg/dL Calcium 7.0 L (8.5-10.3) mg/dL Phosphorus 4.2 (2.5-4.6) mg/dL Magnesium 2.1 (1.7-2.8) mg/dL Total Bilirubin 0.5 (0.2-1.0) mg/dL AST 26 (10-42) IU/L ALT 18 (10-60) IU/L Alkaline Phosphatase 65 (42-121) IU/L Total Protein 4.3 L (6.7-8.2) g/dL Albumin 1.4 L (3.2-5.5) g/dL Globulin 2.9 (2.1-4.2) g/dL Albumin/Globulin Ratio 0.5 L (1.0-2.2) Last Dose Date UNK Last Dose Time UNK Vancomycin Trough (10.0-20.0) ug/mL Random Vancomycin 38.6 ug/mL 01/10/18 01/10/18 Range/Units 04:42 00:39 WBC 38.8 H* (4.8-10.8) x10^3/uL RBC 3.92 L (4.70-6.10) 10^6/uL Hgb 11.7 L (14.0-18.0) g/dL Hct 35.5 L (42.0-52.0) % MCV 90.8 (80.0-94.0) fL MCH 29.8 (27.0-31.0) pg MCHC 32.8 (32.0-36.0) g/dL RDW 15.0 (12.0-15.0) % Plt Count 335 (130-450) 10^3/uL MPV 6.9 L (7.4-11.4) fL Neut # (Auto) Not Reportable Lymph # (Auto) Not Reportable [place] # (Auto) Not Reportable Eos # (Auto) Not Reportable Baso # (Auto) Not Reportable Absolute Nucleated RBC Not Reportable Total Counted 100 Band Neuts % (Manual) 32 H (0 - 10) % Abnorm Lymph % (Manual) 0 % Metamyelocytes % 4 H ( - 0) % Myelocytes % 4 H ( - 0) % Nucleated RBC % Not Reportable Neutrophils # (Manual) 24.8 H (1.5-6.6) 10^3/uL Lymphocytes # (Manual) 8.1 H (1.5-3.5) 10^3/uL Monocytes # (Manual) 2.3 H (0.0-1.0) 10^3/uL Eosinophils # (Manual) 0.4 (0-0.7) 10^3/uL Basophils # (Manual) 0.0 (0-0.1) 10^3/uL Differential Comment MANUAL DIFFERENTIAL Platelet Estimate NORMAL (130-450,000) (NORMAL) RBC Morph Micro Appear NORMAL APPEARANCE (NORMAL) Anti-Xa Level ( - 0.7) U/mL Sodium (135-145) mmol/L Potassium (3.5-5.0) mmol/L Chloride (101-111) mmol/L Carbon Dioxide (21-32) mmol/L Anion Gap (6-13) BUN (6-20) mg/dL Creatinine (0.6-1.2) mg/dL Estimated GFR (MDRD) (>89) Glucose (70-100) mg/dL Calcium (8.5-10.3) mg/dL Phosphorus (2.5-4.6) mg/dL Magnesium (1.7-2.8) mg/dL Total Bilirubin (0.2-1.0) mg/dL AST (10-42) IU/L ALT (10-60) IU/L Alkaline Phosphatase (42-121) IU/L Total Protein (6.7-8.2) g/dL Albumin (3.2-5.5) g/dL Globulin (2.1-4.2) g/dL Albumin/Globulin Ratio (1.0-2.2) Last Dose Date 01-10-18 Last Dose Time 0028 Vancomycin Trough 45.0 H* (10.0-20.0) ug/mL Random Vancomycin ug/mL Assessment/Plan - Problem List (1) Severe sepsis Impression: Patient presented to the emergency department with severe sepsis with heart rate in the 120s, respiratory rate of 24, hypotension and leukocytosis of 46.4 with a 31% bandemia. The patient also had lethargy due to metabolic encephalopathy, acute kidney injury and an elevated lactic acid of 2.4 on presentation. The patient was recently hospitalized for UTI with ESBL producing Klebsiella pneumonia. The patient's urinalysis on presentation however was negative. The patient presented with abdominal distention, abdominal pain, back pain, nausea and vomiting. Initially the source of the patient's infection was thought to likely be an intra-abdominal source. Patient underwent CT of his abdomen and pelvis as well as CT angiogram of chest abdomen and pelvis. The imaging revealed a partial distal colonic obstruction, consolidation of the lower lungs and right sided pulmonary emboli. Given these findings likely source is healthcare associated pneumonia given the patient's recent hospitalization. However the patient also had recent spinal surgery and the pulmonary emboli could be septic emboli. It is therefore also imperative that we rule out possibility of spinal abscess as well as possibility of endocarditis. The patient also was found to have possible rectal abscess with CT however surgery was consulted and ruled out the possibility of a rectal abscess at this time. He had not responded to IVF and abx and was still hypotensive and less and less responsive so I started levophed on 01/08. He has been holding his systolic at 90-92. Requires 10 mcg of Levophed. In the last hour we had to go up to 16 m ics of levo fed. Plan: Continue to treat with broad-spectrum IV antibiotics vancomycin and meropenem Continue IV fluids And levophed. He is minimally responding to therapy. From an encephalopathic perspective he is much more awake, alert. Actually thanked me for my care as I left the room. Blood cultures Negative after 48 hours Echocardiogram showed ejection fraction greater than 75%, aortic valve not well visualized, small circumferential pericardial effusion present. The aortic root was dilated to 4.6 cm. If we really suspected vegetations we needed to do a BRUNILDA. MRI lumbar spine ordered and Report not ready till yesterday evening. There are no abscesses. Just soft tissue edema. Being monitored closely in the intensive care unit and he is Stable but still very critical with, levophed, IVF and IV abx. I will call Lacie Nava and discussed with community case manager to see if there is anything I can add to this poor man's therapy. Central line placement done (2) HCAP (healthcare-associated pneumonia) Conclusion/Plan: The patient presented with severe sepsis with unclear source. Currently the only possible source that has been found is pneumonia. The patient's CT abdomen pelvis revealed bilateral pleural effusions with underlying consolidation right more than left. Given that the patient has been bedbound on narcotics and dealing with the pain he was at high risk for pneumonia. He has had likely atelectasis and may have developed pneumonia which could have been the cause of his presenting sepsis. The patient is only mildly hypoxic and was tachypneic on presentation. The patient has not been having fevers. The patient has not been having significant respiratory distress. The patient was recently hospitalized and therefore will be treated as a healthcare associated pneumonia. So far his oxygen requirement has been stable at 3 liters. Plan IV antibiotics with vancomycin and meropenem for broad coverage. Day #4 IV fluids Supplemental oxygen Blood cultures negative I have discussed his wishes from last admission where he told me he did not want to be intubated if he stopped breathing. remembers that conversation. One Daughter is here who is a nurse. He was supposed to have discussed this with her last admission and fill out a new POLST form. But they never did it last admission. Daughter from [place] did arrive yesteday. The 2 daughters really feel like dad would never want of this. They really do leaning toward comfort measures, and not being aggressive. There is stepmother still is not sure what she wants to do. At the end of the day yesterday, they did fill out a POLST form and he is DO NOT RESUSCITATE with limited interventions. (3) Bowel obstruction Conclusion/Plan: Resolved. Patient had a recent admission where he had a small bowel obstruction secondary to ileus which appeared to have resolved. Now patient has had no bowel movement for the last 3 days and has been having increasing abdominal distention, abdominal pain and nausea and vomiting. The patient's CT of the abdomen reveals a distended colon concerning for likely ileus versus partial distal colon obstruction. Most likely this is secondary to a ileus given his risk factors of having had a recent spinal surgery, being primarily bedbound with decreased ambulation, being on chronic opioids and with ongoing sepsis. Plan: IV fluids N.p.o. With oral Tylenol, Cymbalta discontinued Surgery consult was obtained after all. Not a candidate for surgery. Bowel obstruction appears to have resolved. NG tube out yesterday and so far no emesis. Limit IV narcotics But I do not want him to go through withdrawal, and have stopped p.o. medications IV antiemetics Once patient is improved encourage ambulation. Qualifiers: Intestinal obstruction type: unspecified ileus Qualified Code(s): K56.7 - Ileus, unspecified (4) Pulmonary embolism Conclusion/Plan: The patient had a recent spinal surgery in December and has been primarily bedbound since the surgery limited to a bed and wheelchair with limited ability to participate in physical therapy. The patient is very high risk for a pulmonary embolism and CT angiogram done of chest and the abdomen shows small right sided pulmonary emboli. Patient will be treated with anticoagulation. For now we will place him on IV heparin infusion in case patient needs any surgical intervention. Patient will get an echocardiogram to look for right heart strain. There is also possibility of these being septic emboli given the patient is septic and echocardiogram will be needed to rule out endocarditis. Qualifiers: Pulmonary embolism type: other Chronicity: acute Acute cor pulmonale presence: without acute cor pulmonale Qualified Code(s): I26.99 - Other pulmonary embolism without acute cor pulmonale (5) Metabolic encephalopathy Conclusion/Plan: The patient appears to have metabolic encephalopathy which is likely secondary to sepsis. Although the patient is also on narcotics which could also be contributing to his lethargy. For now while patient is lethargic his oral n arcotics will be held. Still on IV since I don't want him to withdraw. We will treat his sepsis with IV antibiotics and fluids. He has been more and more responsive since the first day. Today is his best day yet. Able to speak full sentences to and daughter. Again, he thanked me for my care when I left the room (6) AGUEDA (acute kidney injury) Conclusion/Plan: On presentation to the emergency department the patient does have acute kidney injury with a creatinine of 1.3 which is elevated from his baseline of 0.6. Patient's renal failure appears to be prerenal secondary to dehydration from sepsis. Creatinine now down to 1.0 on 01/09 but is 1.3 this am. Plan: IV fluids Monitor creatinine Avoid nephrotoxic agents Hold diuretics (7) Hyponatremia Conclusion/Plan: The patient presents with hyponatremia. His sodium on presentation is 122 which is significantly below his baseline. The patient appears to have hypovolemic hyponatremia as he is very dry on exam and patient and hypotensive on presentation. This is likely secondary to sepsis. Patient will be given IV fluids and we will continue to monitor his sodium. He has gone from 122>126>129>131>132 this am. (8) B-cell lymphoproliferative disorder Conclusion/Plan: The patient underwent a bone marrow biopsy in December when he had his spinal surgery. 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 The patient is to follow-up in the [facility] clinic on February 06 for initial assessment. The patient has a leukocytosis of 46.4 on presentation however speaking to the lab there are no abnormal cells or blasts and the differential looks very much like inflammation or infection with a significant bandemia. For now plan will be for patient to follow-up as an outpatient with oncology regarding his bone marrow biopsy. Patient's current leukocytosis appears to be secondary to sepsis and not related to his lymphoproliferative disorder. (9) Chronic atrial fibrillation Conclusion/Plan: The patient has a history of chronic atrial fibrillation. He is not on Coumadin nor is he on anything for rate control. On presentation to the emergency de partment the patient is tachycardic with heart rate in the 120s. This appears to be a normal response to his sepsis rather than A. fib with rapid ventricular rate. We will continue to monitor the patient on telemetry and patient will get an echocardiogram while he is hospitalized. The patient will be started on anticoagulation given his finding of pulmonary embolism and there will need to be further discussion with his primary care physician as to whether the patient should be on chronic anticoagulation with his history of A. fib. (10) Obstructive uropathy Conclusion/Plan: The patient recently has developed obstructive uropathy for which he has an i ndwelling Gutierrez catheter. The patient was recently admitted with urinary tract infection growing ESBL producing Klebsiella pneumonia. Patient's obstructive uropathy is likely secondary to his BPH but also likely worsened due to his need for chronic opioids due to his back pain. We will continue with his chronic Gutierrez catheter. (11) Status post laminectomy Conclusion/Plan: Surgery done 12/18/2017 Given the patient's ongoing sepsis we will get an MRI of the patient's lumbar spine to rule out a spinal abscess although given the patient's symptoms this do es appear to be less likely. Once patient is recovering from sepsis we will need to restart physical therapy. Patient will be continued on narcotics for pain relief once he is more alert and awake. (12) UTI (urinary tract infection) Conclusion/Plan: Patient was recently admitted for urinary tract infection. The patient's urine culture grew ESBL producing Klebsiella pneumonia which was susceptible to Levaquin and patient completed treatment. The patient's urinalysis is negative on presentation despite presenting with sepsis. The patient's sepsis appears to be from other source. The patient continues to have an indwelling Gutierrez catheter. Resolved
[2018-01-10 17:54] LABS: VBG PCO2 34.1 mmHg (41-51); VBG PH 7.283 (7.31-7.41); VBG PO2 44.1 mmHg (25-47)
[2018-01-10 17:55] LABS: VBG BASE EXCESS -9.9 mmol/L (-2 - +2); VBG TOTAL CO2 16.8 mmol/L (24-29)
[2018-01-10 18:00] LABS: VANCOMYCIN,RANDOM 36.9 ug/mL
[2018-01-10] MEDS ORDERED: SODIUM CHLORIDE 0.9% 250 ML IV ONE (18:40)
[2018-01-10] MEDS: VASOPRESSIN 20 UNIT in DEXTROSE 5% 99 ML IV SCH (19:58)
[2018-01-11 00:39] LABS: VANCOMYCIN,RANDOM 29.9 ug/mL
[2018-01-11] MEDS: VASOPRESSIN 20 UNIT in DEXTROSE 5% 99 ML IV SCH ×6 (03:23→23:28)
[2018-01-11] MEDS: SODIUM CHLORIDE FLUSH 0.9% 10 ML SYRINGE IVP SCH ×3 (03:25→16:36)
[2018-01-11] MEDS: SODIUM CHLORIDE 0.9% 1,000 ML IV SCH ×2 (03:26→08:19)
[2018-01-11 05:11] LABS: BASOPHILS % (AUTO) 0.1 %; EOSINOPHILS % (AUTO) 0.1 %; HGB - HEMOGLOBIN 11.4 g/dL (14.0-18.0); LYMPHOCYTES % (AUTO) 19.3 %; MEAN CORPUSCULAR HEMOGLOBIN 29.6 pg (27.0-31.0); MEAN CORPUSCULAR HGB CONC 32.8 g/dL (32.0-36.0); MEAN CORPUSCULAR VOLUME 90.3 fL (80.0-94.0); MEAN PLATELET VOLUME 7.1 fL (7.4-11.4); MONOCYTES % (AUTO) 2.4 %; NEUTROPHILS % (AUTO) 78.1 %; PLT - PLATELET COUNT 201 10^3/uL (130-450); RED BLOOD COUNT 3.84 10^6/uL (4.70-6.10); RED CELL DISTRIBUTION WIDTH 15.3 % (12.0-15.0)
[2018-01-11 05:21] LABS: WHITE BLOOD COUNT 40.2 x10^3/uL (4.8-10.8)
[2018-01-11 05:23] LABS: ABNORMAL LYMPHS % (MANUAL) 0 %
[2018-01-11 05:28] LABS: ALBUMIN 1.4 g/dL (3.2-5.5); ALBUMIN/GLOBULIN RATIO 0.6 (1.0-2.2); BILIRUBIN,TOTAL 0.5 mg/dL (0.2-1.0); CALCIUM 6.8 mg/dL (8.5-10.3); CREATININE 1.7 mg/dL (0.6-1.2); MAGNESIUM 2.2 mg/dL (1.7-2.8); PHOSPHORUS 5.1 mg/dL (2.5-4.6); TOTAL PROTEIN 3.9 g/dL (6.7-8.2)
[2018-01-11 06:26] LABS: BAND NEUTROPHILS % (MANUAL) 38 %; DIFFERENTIAL COMMENT MANUAL DIFFERENTIAL; LYMPHOCYTES # (MANUAL) 5.6 10^3/uL (1.5-3.5); LYMPHOCYTES % (MANUAL) 14 %; METAMYELOCYTES % (MANUAL) 1 %; MONOCYTES # (MANUAL) 2.8 10^3/uL (0.0-1.0); MYELOCYTES % (MANUAL) 3 %; NEUTROPHILS # (MANUAL) 30.2 10^3/uL (1.5-6.6); NEUTROPHILS % (MANUAL) 37 %; PLATELET ESTIMATE, MANUAL NORMAL (130-450,000) (NORMAL); RBC MORPHOLOGY (MULTIPLE) NORMAL APPEARANCE (NORMAL)
[2018-01-11] MEDS: MEROPENEM 1 GM in SODIUM CHLORIDE 0.9% MINIBAG 100 ML IV SCH ×3 (06:35→22:12)
[2018-01-11] MEDS: HYDROcod/ACETAM 10 MG/325 MG TABLET PO PRN (08:27)
[2018-01-11] MEDS: FAMOTIDINE 20 MG/50 ML 50 ML IV SCH ×2 (08:29→21:09)
[2018-01-11] MEDS: HEPARIN 25000UNITS/500ML (D5W) 25,000 UNIT/500 ML BAG IV SCH (08:33)
[2018-01-11] MEDS: NICOTINE 21 MG PATCH TOP SCH (08:45)
[2018-01-11] MEDS: SODIUM BICARBONATE 100 MEQ in DEXTROSE 5% 1,000 ML IV SCH ×2 (11:30→21:53)
--- NOTE | 2018-01-11 12:50 | PROVIDER PROGRESS NOTE ---
Subjective - Prog Note Date Prog Note Date: 01/11/18 Prog Note Time: 12:46 - Subjective Subjective: He was exquisitely sensitive to changing over the levo fed to the vasopressin. In the few moments we disconnected one to start the other, he dropped his sy stolic pressure drastically. Between yesterday and today his systolic which was 77 on the Levophed, Levophed increased to 16 mics, now on vasopressin. His systolic blood pressure has been between 82-97. Urine output is dropping. On January 08 he was able to put out 1745. Then he was 752 on January 09. 321 on January 10. So far today is only 291. With that his creatinine is starting to bump. He was initially 1.3 when he came in. Dropped down to 1 with resuscitation. Yesterday his creatinine was 1.3 and today is 1.7. He has been sleepy, lethargic but appropriate. When you wake him up, he is able to converse with his daughters, stepdaughter, [id number], and . Various people have been at the bedside and continue to be there today. His main complaint is back pain. He denies shortness of breath, chest congestion. He denies any belly pain. Over and over again he just keeps on telling me "it is just my back". He is getting morphine IV as needed. But he asked if he could have a fixed schedule of oxycodone. Current Medications - Current Medications Current Medications: Active Medications Acetaminophen (Tylenol) 650 mg [place] Q6HR PRN PRN Reason: Pain or Fever > 38C (100.4F) Hydrocodone Bitart/Acetaminophen (Abernathy 10 Mg/325 Mg) 1 tab PO Q4HR PRN PRN Reason: Pain 8 to 10 Last Admin: 01/11/18 08:27 Dose: 1 tab Heparin Sodium (Beef Lung) () 30 - 50 unit IVP PRN PRN PRN Reason: Central Line Protocol (<24 hr) Famotidine (Pepcid 20 Mg/50 Ml) 50 mls @ 100 mls/hr IV BID [facility] Last Infusion: 01/11/18 08:59 Dose: Infused Meropenem 1 gm/ Sodium (Chloride) 100 mls @ 200 mls/hr IV Q8H [facility] Last Infusion: 01/11/18 07:05 Dose: Infused Heparin Sodium/Dextrose () 25,000 unit in 500 mls @ 24.494 mls/hr IV .[id number] [facility]; Protocol Last Admin: 01/11/18 08:33 Dose: 17 unit/kg/hr, 27.76 mls/hr Vasopressin 20 unit/ Dextrose 100 mls @ 15 mls/hr IV .[id number] [facility]; Protocol Last Titration: 01/11/18 12:00 Dose: 0.05 unit/min, 15 mls/hr Sodium Bicarbonate 100 meq/ (Dextrose) 1,100 mls @ 100 mls/hr IV .Q11H [facility] Last Infusion: 01/11/18 12:00 Dose: 100 mls/hr Morphine Sulfate (Morphine (Carpuject)) 2 mg IVP Q2HR PRN PRN Reason: Pain 8 to 10 Last Admin: 01/10/18 23:10 Dose: 2 mg Multi-Ingredient Ointment (Zinc Oxide) 1 applic TOP PRN PRN PRN Reason: Skin Care Last Admin: 01/08/18 21:08 Dose: 1 applic Nicotine (Nicoderm) 1 patch TOP DAILY [facility] Last Admin: 01/11/18 08:45 Dose: 1 patch Ondansetron HCl (Zofran Inj) 4 mg IVP Q6HR PRN PRN Reason: Nausea / Vomiting Last Admin: 01/10/18 08:08 Dose: 4 mg Oxycodone HCl (Roxicodone) 5 mg PO Q8H [facility] Prochlorperazine Edisylate (Compazine Inj) 10 mg IVP Q6HR PRN PRN Reason: Nausea / Vomiting Last Admin: 01/09/18 19:31 Dose: 10 mg Promethazine HCl (Phenergan Inj) 25 mg IM Q6HR PRN PRN Reason: Nausea / Vomiting Sodium Chloride (Normal Saline Flush 0.9%) 10 ml IVP 0100,0900,1700 [facility] Last Admin: 01/11/18 08:32 Dose: Not Given Sodium Chloride (Normal Saline Flush 0.9%) 10 ml IVP PRN PRN PRN Reason: NEEDED PER PROVIDER ORDERS Last Admin: 01/10/18 04:41 Dose: 20 ml Aspirin 325 mg PO QDAC 12/31/12 Duloxetine HCl 20 mg PO DAILY 12/26/17 Furosemide 40 mg PO DAILY 12/26/17 Omeprazole [PriLOSEC] 20 mg PO DAILY 12/26/17 Ondansetron [Zofran Odt] 8 mg PO TID PRN 12/26/17 Polyethylene Glycol 3350 [Miralax] 17 gm PO DAILY 12/26/17 Potassium Chloride [Klor-Con M20] 20 meq PO DAILY 12/26/17 Senna [Senokot] 8.6 mg PO BID PRN 12/26/17 Spironolactone 50 mg PO BID 12/26/17 Tamsulosin HCl [Flomax] 0.8 mg PO DAILY 12/26/17 traMADol [Ultram] 50 mg PO QID PRN 12/26/17 Objective - Vital Signs/Intake & Output Reviewed Vital Signs: Yes Vital Signs: Vital Signs Temp Pulse Resp BP Pulse Ox 01/11/18 12:00 106 H 17 82/57 L 96 01/11/18 11:00 116 H 23 82/68 L 94 01/11/18 10:00 106 H 22 86/65 L 94 01/11/18 09:00 36.4 C L 105 H 18 88/55 L 94 Intake & Output: Intake & Output 01/08/18 01/09/18 01/10/18 01/11/18 23:59 23:59 23:59 23:59 Intake Total 8551.432 3749.568 5312.233 1692.404 Output Total 1745 752 321 291 Balance 6806.432 2997.568 4991.233 1401.404 - Objective General Appearance: positive: Alert, Other (very sleepy, wakens w my voice. slow, soft conversation.) Eyes Bilateral: positive: PERRL, EOMI Neck: positive: No JVD. negative: Stiff neck, Carotid bruit Respiratory: positive: Chest non-tender - Lab Results Fish Bones: 01/11/18 04:55 01/11/18 04:55 Other Labs: Lab Results x24hrs 01/11/18 01/11/18 01/11/18 Range/Units 07:00 04:55 04:55 WBC 40.2 H* (4.8-10.8) x10^3/uL RBC 3.84 L (4.70-6.10) 10^6/uL Hgb 11.4 L (14.0-18.0) g/dL Hct 34.7 L (42.0-52.0) % MCV 90.3 (80.0-94.0) fL MCH 29.6 (27.0-31.0) pg MCHC 32.8 (32.0-36.0) g/dL RDW 15.3 H (12.0-15.0) % Plt Count 201 (130-450) 10^3/uL MPV 7.1 L (7.4-11.4) fL Neut # (Auto) Not Reportable Lymph # (Auto) Not Reportable Den[place] # (Auto) Not Reportable Eos # (Auto) Not Reportable Baso # (Auto) Not Reportable Absolute Nucleated RBC Not Reportable Total Counted 100 Band Neuts % (Manual) 38 H (0 - 10) % Abnorm Lymph % (Manual) 0 % Metamyelocytes % 1 H ( - 0) % Myelocytes % 3 H ( - 0) % Nucleated RBC % Not Reportable Neutrophils # (Manual) 30.2 H (1.5-6.6) 10^3/uL Lymphocytes # (Manual) 5.6 H (1.5-3.5) 10^3/uL Monocytes # (Manual) 2.8 H (0.0-1.0) 10^3/uL Eosinophils # (Manual) 0.0 (0-0.7) 10^3/uL Basophils # (Manual) 0.0 (0-0.1) 10^3/uL Nucleated RBCs 1 % Differential Comment MANUAL DIFFERENTIAL Platelet Estimate NORMAL (130-450,000) (NORMAL) RBC Morph Micro Appear NORMAL APPEARANCE (NORMAL) Anti-Xa Level 0.7 ( - 0.7) U/mL VBG pH (7.31-7.41) VBG pCO2 (41-51) mmHg VBG pO2 (25-47) mmHg VBG HCO3 (23-28) mmol/L VBG Total CO2 (24-29) mmol/L VBG O2 Saturation (60-80) % VBG Base Excess (-2 - +2) mmol/L Sodium 130 L (135-145) mmol/L Potassium 4.8 (3.5-5.0) mmol/L Chloride 103 (101-111) mmol/L Carbon Dioxide 16 L (21-32) mmol/L Anion Gap 11.0 (6-13) BUN 54 H (6-20) mg/dL Creatinine 1.7 H (0.6-1.2) mg/dL Estimated GFR (MDRD) 39 L (>89) Glucose 136 H (70-100) mg/dL Calcium 6.8 L (8.5-10.3) mg/dL Phosphorus 5.1 H (2.5-4.6) mg/dL Magnesium 2.2 (1.7-2.8) mg/dL Total Bilirubin 0.5 (0.2-1.0) mg/dL AST 27 (10-42) IU/L ALT 17 (10-60) IU/L Alkaline Phosphatase 64 (42-121) IU/L Total Protein 3.9 L (6.7-8.2) g/dL Albumin 1.4 L (3.2-5.5) g/dL Globulin 2.5 (2.1-4.2) g/dL Albumin/Globulin Ratio 0.6 L (1.0-2.2) Last Dose Date Last Dose Time Random Vancomycin ug/mL 01/11/18 01/10/18 01/10/18 Range/Units 00:20 17:45 17:45 WBC (4.8-10.8) x10^3/uL RBC (4.70-6.10) 10^6/uL Hgb (14.0-18.0) g/dL Hct (42.0-52.0) % MCV (80.0-94.0) fL MCH (27.0-31.0) pg MCHC (32.0-36.0) g/dL RDW (12.0-15.0) % Plt Count (130-450) 10^3/uL MPV (7.4-11.4) fL Neut # (Auto) Lymph # (Auto) [place] # (Auto) Eos # (Auto) Baso # (Auto) Absolute Nucleated RBC Total Counted Band Neuts % (Manual) (0 - 10) % Abnorm Lymph % (Manual) % Metamyelocytes % ( - 0) % Myelocytes % ( - 0) % Nucleated RBC % Neutrophils # (Manual) (1.5-6.6) 10^3/uL Lymphocytes # (Manual) (1.5-3.5) 10^3/uL Monocytes # (Manual) (0.0-1.0) 10^3/uL Eosinophils # (Manual) (0-0.7) 10^3/uL Basophils # (Manual) (0-0.1) 10^3/uL Nucleated RBCs % Differential Comment Platelet Estimate (NORMAL) RBC Morph Micro Appear (NORMAL) Anti-Xa Level ( - 0.7) U/mL VBG pH 7.283 L (7.31-7.41) VBG pCO2 34.1 L (41-51) mmHg VBG pO2 44.1 (25-47) mmHg VBG HCO3 15.8 L (23-28) mmol/L VBG Total CO2 16.8 L (24-29) mmol/L VBG O2 Saturation 77.7 (60-80) % VBG Base Excess -9.9 L (-2 - +2) mmol/L Sodium (135-145) mmol/L Potassium (3.5-5.0) mmol/L Chloride (101-111) mmol/L Carbon Dioxide (21-32) mmol/L Anion Gap (6-13) BUN (6-20) mg/dL Creatinine (0.6-1.2) mg/dL Estimated GFR (MDRD) (>89) Glucose (70-100) mg/dL Calcium (8.5-10.3) mg/dL Phosphorus (2.5-4.6) mg/dL Magnesium (1.7-2.8) mg/dL Total Bilirubin (0.2-1.0) mg/dL AST (10-42) IU/L ALT (10-60) IU/L Alkaline Phosphatase (42-121) IU/L Total Protein (6.7-8.2) g/dL Albumin (3.2-5.5) g/dL Globulin (2.1-4.2) g/dL Albumin/Globulin Ratio (1.0-2.2) Last Dose Date 01-10-18 UNK Last Dose Time 0122 UNK Random Vancomycin 29.9 36.9 ug/mL Assessment/Plan - Problem List (1) Severe sepsis Impression: Patient presented to the emergency department with severe sepsis with heart rate in the 120s, respiratory rate of 24, hypotension and leukocytosis of 46.4 with a 31% bandemia. The patient also had lethargy due to metabolic encephalopathy, acute kidney injury and an elevated lactic acid of 2.4 on presentation. The patient was recently hospitalized for UTI with ESBL producing Klebsiella pneumonia. The patient's urinalysis on presentation however was negative. The patient presented with abdominal distention, abdominal pain, back pain, nausea and vomiting. Initially the source of the patient's infection was thought to likely be an intra-abdominal source. Patient underwent CT of his abdomen and pelvis as well as CT angiogram of chest abdomen and pelvis. The imaging revealed a partial distal colonic obstruction, consolidation of the lower lungs and right sided pulmonary emboli. Given these findings likely source is healthcare associated pneumonia given the patient's recent hospitalization. However the patient also had recent spinal surgery and the pulmonary emboli could be septic emboli. It is therefore also imperative that we rule out possibility of spinal abscess as well as possibility of endocarditis. The patient also was found to have possible rectal abscess with CT however surgery was consulted and ruled out the possibility of a rectal abscess at this time. He had not responded to IVF and abx and was still hypotensive and less and less responsive so I started levophed on 01/08. He has been holding his systolic at 90-92. Requires 10 mcg of Levophed. In the later part of the day on 01/10 we had to go up to 16 mics of levo fed. Changed to vasopressin. Plan: Continue to treat with broad-spectrum IV antibiotics vancomycin and meropenem. D ay #5. Continue IV fluids as well as vasopressin. He is minimally responding to therapy. From an encephalopathic perspective he is much more awake, alert. I did make sure he understood what was happening to him. He said he understood. I asked if he had any further questions or worries. His only concern was getting something for his back pain. He said to rely on his and children to make major decisions for him and he was content with whatever they said. Blood cultures Negative Echocardiogram showed ejection fraction greater than 75%, aortic valve not well visualized, small circumferential pericardial effusion present. The aortic root was dilated to 4.6 cm. If we really suspected vegetations we needed to do a BRUNILDA. MRI lumbar spine ordered and report not ready till 01/09 evening. There are no abscesses. Just soft tissue edema. Being monitored closely in the intensive care unit and he is stable but still very critical with vasopressin, IVF and IV abx. He is dependent on the pressors to keep him alive. Yesterday showed severe drop in BP for the few moments off of levophed. I called Lacie Nava and discussed with process analyst to see if there is anything I can add to this poor man's therapy. I did give a small fluid bolus, changed to vaospressin. VenousBG did confirm acidosis. I spoke at length to his , [id number], daughter, and 2 stepdaughters. His condition is critical. He is minimally responding to my resuscitative efforts with antibiotics, pressors, IV fluids. Unfortunately he is going in the wrong direction. I did offer them a higher level of care. I expressed that I do not think he will do well overall no matter what is done. However, if they felt strongly enough that they wanted more intensive treatment short of intubation, we could transfer him to [facility] or [place]. They feel that this is as far as they want to go. Their father, , son-in-[place]. They are accepting what of her care we can give them here understanding that we do not have dedicated critical care physicians here. And as such the patient will stay here. If in the next few days he continues to deteriorate, they may consider stopping all treatment and going to comfort measures only. (2) HCAP (healthcare-associated pneumonia) Conclusion/Plan: The patient presented with severe sepsis with unclear source. Currently the only possible source that has been found is pneumonia. The patient's CT abdomen pelvis revealed bilateral pleural effusions with underlying consolidation right more than left. Given that the patient has been bedbound on narcotics and dealing with the pain he was at high risk for pneumonia. He has had likely atelectasis and may have developed pneumonia which could have been the cause of his presenting sepsis. The patient is only mildly hypoxic and was tachypneic on presentation. The patient has not been having fevers. The patient has not bee n having significant respiratory distress. The patient was recently hospitalized and therefore will be treated as a healthcare associated pneumonia. So far his oxygen requirement has been stable at 3 liters. Plan IV antibiotics with vancomycin and meropenem for broad coverage. Day #5 IV fluids Supplemental oxygen Blood cultures negative I have discussed his wishes from last admission where he told me he did not want to be intubated if he stopped breathing. remembers that conversation. One Daughter is here who is a nurse. He was supposed to have discussed this with her last admission and fill out a new POLST form. But they never did it last admission. Daughter from [place] did arrive yesteday. The 2 daughters really feel like dad would never want of this. They really do leaning toward comfort measures, and not being aggressive. There is stepmother still is not sure what she wants to do. At the end of the day 01/09, they did fill out a POLST form and he is DO NOT RESUSCITATE with limited interventions. I did sign that. (3) Bowel obstruction Conclusion/Plan: Resolved. Patient had a recent admission where he had a small bowel obstruction secondary to ileus which appeared to have resolved. On admission, the patient had no bowel movement for the last 3 days and has been having increasing abdominal distention, abdominal pain and nausea and vomiting. The patient's CT of the abdomen reveals a distended colon concerning for likely ileus versus partial distal colon obstruction. Most likely this is secondary to a ileus given his risk factors of having had a recent spinal surgery, being primarily bedbound with decreased ambulation, being on chronic opioids and with ongoing sepsis. He did have a BM and partial SBO resolved 2 days ago. Plan: IV fluids was N.p.o. With oral Tylenol, Cymbalta discontinued, I will let him have clear liquids and resume his oxycodone. Surgery consult was obtained after all. Not a candidate for surgery. Bowel obstruction appears to have resolved. NG tube out 01/09 and so far no emesis. Limit IV narcotics But I do not want him to go through withdrawal, and have stopped p.o. medications IV antiemetics Once patient is improved encourage ambulation. Qualifiers: Intestinal obstruction type: unspecified ileus Qualified Code(s): K56.7 - Ileus, unspecified (4) Pulmonary embolism Conclusion/Plan: The patient had a recent spinal surgery in December and has been primarily bedbound since the surgery limited to a bed and wheelchair with limited ability to participate in physical therapy. The patient is very high risk for a pulmonary embolism and CT angiogram done of chest and the abdomen shows small right sided pulmonary emboli. Patient will be treated with anticoagulation. For now we will place him on IV heparin infusion in case patient needs any surgical intervention. To reduce IVF, will change to lovenox today Echocardiogram to look for right heart strain did not show strain. There is also possibility of these being septic emboli given the patient is septic and echocardiogram will be needed to rule out endocarditis. That would be a BRUNILDA but family is not interested in transferring for that. Qualifiers: Pulmonary embolism type: other Chronicity: acute Acute cor pulmonale presence: without acute cor pulmonale Qualified Code(s): I26.99 - Other pulmonary embolism without acute cor pulmonale (5) Metabolic encephalopathy Conclusion/Plan: The patient appears to have metabolic encephalopathy which is likely secondary to sepsis. Although the patient is also on narcotics which could also be contributing to his lethargy. For now while patient is lethargic his oral narcotics will be held. Still on IV since I don't want him to withdraw. We will treat his sepsis with IV antibiotics and fluids. He has been more and more responsive since the first day. By 01/10 he is able to speak full sentences to and daughter. Again, he thanked me for my care when I left the room 0n 01/10 and recognized me from his first time here. Today he has no further questions after I explained how serious his illness was. (6) AGUEDA (acute kidney injury) Conclusion/Plan: On presentation to the emergency department the patient does have acute kidney injury with a creatinine of 1.3 which is elevated from his baseline of 0.6. Patient's renal failure appears to be prerenal secondary to dehydration from sepsis. Creatinine was down to 1.0 on 01/09 but came up to 1.3>1.7 this am. Plan: IV fluids Monitor creatinine Avoid nephrotoxic agents Hold diuretics (7) Hyponatremia Conclusion/Plan: The patient presents with hyponatremia. His sodium on presentation is 122 which is significantly below his baseline. The patient appears to have hypovolemic hyponatremia as he is very dry on exam and patient and hypotensive on presentation. This is likely secondary to sepsis. Patient will be given IV fluids and we will continue to monitor his sodium. He has gone from 122>126>129>131>132>130 this am. He is (+) ~ 17,446 up until this note for I/O. I hesitate to give lasix IVP bc of his BP. He has diffuse, diffuse anasarca. Try bumex 0.25 mg/hr. If he bottoms out his pressure, stop it. (8) B-cell lymphoproliferative disorder Conclusion/Plan: The patient underwent a bone marrow biopsy in December when he had his spinal surgery. 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 The patient is to follow-up in the [facility] clinic on February 06 for initial assessment. The patient has a leukocytosis of 46.4 on presentation however speaking to the lab there are no abnormal cells or blasts and the differential looks very much like inflammation or infection with a significant bandemia. For now plan will be for patient to follow-up as an outpatient with oncology regarding his bone marrow biopsy. Patient's current leukocytosis appears to be secondary to sepsis and not related to his lymphoproliferative disorder. (9) Chronic atrial fibrillation Conclusion/Plan: The patient has a history of chronic atrial fibrillation. He is not on Coumadin nor is he on anything for rate control. On presentation to the emergency department the patient is tachycardic with heart rate in the 120s. This appears to be a normal response to his sepsis rather than A. fib with rapid ventricular rate. We will continue to monitor the patient on telemetry and patient will get an echocardiogram while he is hospitalized. The patient will be started on anticoagulation given his finding of pulmonary embolism and there will need to be further discussion with his primary care physician as to whether the patient should be on chronic anticoagulation with his history of A. fib. Change heparin to lovenox today. (10) Obstructive uropathy Conclusion/Plan: The patient recently has developed obstructive uropathy for which he has an indwelling Gutierrez catheter. The patient was recently admitted with urinary tract infection growing ESBL producing Klebsiella pneumonia. Patient's obstructive uropathy is likely secondary to his BPH but also likely worsened due to his need for chronic opioids due to his back pain. We will continue with his chronic Gutierrez catheter. (11) Status post laminectomy Conclusion/Plan: Surgery done 12/18/2017 Given the patient's ongoing sepsis we did get an MRI of the patient's lumbar spine to rule out a spinal abscess. MRI negative other than for soft tissue edema. We hoped to restart physical therapy but he isn't getting better. Patient will be started on oxycodone for pain relief at his request. (12) UTI (urinary tract infection) Conclusion/Plan: Patient was recently admitted for urinary tract infection. The patient's urine culture grew ESBL producing Klebsiella pneumonia which was susceptible to Levaq uin and patient completed treatment. The patient's urinalysis is negative on presentation despite presenting with sepsis. The patient's sepsis appears to be from other source. The patient continues to have an indwelling Gutierrez catheter. Resolved
[2018-01-11] MEDS: oxyCODONE 5 MG TABLET PO SCH ×2 (14:15→21:09)
[2018-01-11] MEDS: SODIUM CHLORIDE 0.9% IV SCH ×2 (14:55→21:38)
[2018-01-11] MEDS: BUMETANIDE IV SCH ×2 (14:55→21:38)
[2018-01-11] MEDS: ENOXAPARIN 80 MG/0.8 ML SYRINGE SUBQ SCH ×2 (14:56→21:08)
[2018-01-11] MEDS: ONDANSETRON 4 MG/2 ML VIAL IVP PRN (16:32)
[2018-01-11] MEDS: SODIUM CHLORIDE FLUSH 0.9% 10 ML SYRINGE IVP PRN (16:35)
[2018-01-11] MEDS: MORPHINE 2 MG/ML CARPUJECT IVP PRN (20:13)
[2018-01-11] MEDS ORDERED: SCOPOLAMINE PATCH TOP SCH (21:00)
[2018-01-12 00:14] VITALS: BP 94/71
[2018-01-12] MEDS ORDERED: ATROPINE 1% OPHTH DROPS 2 ML SL PRN (02:40)
[2018-01-12] MEDS ORDERED: LORazepam 0.5 MG TABLET PO PRN (02:40)
[2018-01-12] MEDS ORDERED: CARBOXYMETHYLCELLULOSE OPHTH DROPS EACHEYE PRN (02:40)
[2018-01-12] MEDS ORDERED: GLYCOPYRROLATE 1 MG/5 ML VIAL SUBQ PRN (02:40)
--- NOTE | 2018-01-12 02:40 | PROVIDER PROGRESS NOTE ---
Etcher Hand Note - Etcher Hand Note Etcher Hand Note: Spoke with patient's and 2 daughters who are at bedside at 2:30 AM on 01/12/2018. They were told that their father's condition was continuing to worsen despite aggressive treatment. In the last 2 hours he had put out no urine. The patient was on maximum dose of pressor and legs were beginning to become mottled. The patient was becoming less responsive and his eyes looked glazed over. Decision was made by the patient's and agreed upon by the patient's daughters that at this point it was best to withdraw care and make the patient comfortable. It did not appear that patient was improving despite aggressive treatment and family did not want to him to suffer or prolong things at this point. Pressors, antibiotics, fluids and telemetry monitoring were all discontinued and patient was placed on comfort care only.
--- NOTE | 2018-01-12 03:53 | DISCHARGE SUMMARY ---
Discharge Summary Admit Date: 01/07/18 Discharge Date: 01/12/18 Discharging Provider: Roger Mendoza MD Primary Care Provider: Mesfin Hilton DO, MD Code Status: Do Not Attempt Resuscitation Discharge Disposition: 20 - DIAGNOSES Admission Diagnoses: 1. Severe sepsis 2. Healthcare associated pneumonia 3. Bowel obstruction 4. Pulmonary embolism 5. Metabolic encephalopathy 6. Acute kidney injury 7. Hyponatremia 8. B-cell lymphoproliferative disorder 9. Chronic atrial fibrillation 10. Obstructive uropathy 11. Status post laminectomy 12. Urinary tract infection Discharge Diagnoses with Status of Each Condition: 1. Septic shock: 2. Healthcare associated pneumonia: 3. Bowel obstruction: 4. Pulmonary embolism: 5. Metabolic encephalopathy: 6. Acute kidney injury: 7. Hyponatremia: 8. B-cell lymphoproliferative disorder: 9. Chronic atrial fibrillation: 10. Obstructive uropathy: 11. Status post laminectomy: 12. Urinary tract infection: - HPI History of Present Illness: Patient is a very unfortunate 82-year-old gentleman with an extensive past medical history which includes hypertension, hyperlipidemia, chronic atrial fibrillation, beta cell lymphoproliferative disorder awaiting evaluation with the [facility] clinic on February 06, COPD, BPH with recent urinary retention and a chronic Gutierrez catheter, recent spinal surgery with kyphoplasty of L3 and L4 and laminectomy of L2 through L5 in December and recent hospitalization at [facility] on 12/26/2017 discharged back to [facility] on 12/29/2017 after being treated for a small bowel ileus and ESBL producing Klebsiella pneumonia UTI. He was brought into the emergency department today with increasing abdominal distention. The patient has had a major decline in his health over the last 2 years which is beautifully documented in Dr. Russell's history and physical dictated on 12/26/2017 please refer to that. According to the patient's since his discharge from [facility] back over to [facility] initially the patient was doing much better. He was starting to participate more with physical therapy he had been having increasing bowel movements. She states however over the last 4 days the patient has been complaining of increasing pain in his back which is been gradually getting worse. She states that he has been increasingly drowsy and over the last 2 days was particularly quiet and less interactive which is not his norm. She states he was able to do less and less with physical therapy the last 2 days. She states that his last bowel movement was 3 days ago. She states that yesterday evening she began to notice that he had increasing swelling in his legs and his abdomen was becoming distended. She states that he did not have any vomiting nor did he complain of any abdominal pain but he was increasingly drowsy. She states that when she came to see him this morning his abdominal distention was much worse and he was very difficult to arouse. She also noted that his right arm was swollen. He was also having increasing nausea and vomiting. The patient's states that the physician in charge of [facility]riage Dr. Gallagher saw the patient today and noted the abdominal distention therefore he sent him to the emergency department. The patient was not able to provide any history due to his decreased level of consciousness and what appears to be metabolic encep halopathy. On presentation to the emergency department the patient was afebrile however he was tachycardic with a heart rate up to 120, tachypneic with respiratory rate of 24 and borderline hypotensive with blood pressures in the 90s. The patient underwent routine lab work which revealed a leukocytosis of 46.4 with a 31% bandemia, a creatinine that was elevated at 1.3 from a baseline of 0.8 just 1 week ago. An elevated lactic acid of 2.4 and a sodium of 122. The patient was encephalopathic and difficult to arouse and was assumed to be septic. The emergency room physician was concerned given the patient's abdominal distention, nausea and vomiting that the source was intra-abdominal therefore she got a CT of his abdomen which revealed marked distention of the colon most likely from ileus or partial distal colon obstruction. The patient was also found to have bilateral pleural effusions with underlying consolidation right more than left. The patient also underwent a CT angiogram of his abdomen which was negative for mesenteric ischemia but did reveal a small amount of pulmonary emboli in the right base as well as diffuse wall thickening in the rectum with retrorectal and perianal infiltration and fluid collections suspicious for abscess. Given the suspicion for a perirectal abscess general surgery was consulted and Dr. Contreras did examine the patient in the emergency department. He did not feel that this was a rectal abscess as there was no rectal abscess found on examination and the patient did not have significant pain on rectal examination. The patient was admitted for severe sepsis with presumed source being a healthcare associated pneumonia. The patient was given ertapenem and vancomycin along with Flagyl in the emergency department. Blood cultures were drawn before giving antibiotics. Given the severity of the patient's condition he was admitted to the intensive care unit. - HOSPITAL COURSE Hospital Course: The patient was admitted to the intensive care unit with severe sepsis secondary to healthcare associated pneumonia and was placed on broad-spectrum IV antibiotics with vancomycin and meropenem. Unfortunately the patient's status continued to worsen and patient became hypotensive despite adequate fluid resuscitation the patient then had to be placed on pressors. The patient initially appeared to respond to the pressors as he had improved mentation however the patient's leukocytosis after improving initially continued to worsen through the hospitalization with white blood cell count up to 40.2 on 01/11/2018. Despite multiple efforts to wean off pressors the patient continued to require increasing doses of pressors. The patient was initially on Levophed and then switched to vasopressin and required increasing doses of vasopressin and was maxed out on vasopressin on 01/12/2018. In the gis developer hours of 01/12/2018 the patient's condition seemed to be worsening very quickly. As mentioned the patient was on max dose of vasopressin and blood pressure continued to be low, patient's mentation began to worsen, he began to have decreased urine output with already worsening kidney function. The patient's legs became mottled and it appeared that the patient was not improving despite all our efforts. Earlier in the hospitalization the patient and the patient's family were offered to be transferred to a higher level of care at a tertiary care center however they refused and wanted to just continue current management here. Unfortunately despite our aggressive medical management the patient did not improve. After discussion with the patient's and 2 of his daughters decision was made by the to withdraw care given that the patient was not improving. The patient was discontinued from pressors, IV fluids and IV antibiotics. The patient was placed on comfort care. Within 1 hour of this decision the patient took his last breath. The patient had his and daughters at the bedside and appeared comfortable in his last breaths. The patient at 3:30 AM on 01/12/2018 with his loving family at his side. - ALLERGIES Allergies/Adverse Reactions: Allergies Allergy/AdvReac Type Severity Reaction Status Date / Time cefepime Allergy Rash Verified 01/07/18 15:27 - MEDICATIONS Home Medications: Ambulatory Orders Medication Instructions Recorded Confirmed Aspirin 325 mg PO QDAC 12/31/12 01/08/18 Duloxetine HCl 20 mg PO DAILY 12/26/17 01/08/18 Furosemide 40 mg PO DAILY 12/26/17 01/08/18 Omeprazole [PriLOSEC] 20 mg PO DAILY 12/26/17 01/08/18 Ondansetron [Zofran Odt] 8 mg PO TID PRN 12/26/17 01/08/18 Polyethylene Glycol 3350 [Miralax] 17 gm PO DAILY 12/26/17 01/08/18 Potassium Chloride [Klor-Con M20] 20 meq PO DAILY 12/26/17 01/08/18 Senna [Senokot] 8.6 mg PO BID PRN 12/26/17 01/08/18 Spironolactone 50 mg PO BID 12/26/17 01/08/18 Tamsulosin HCl [Flomax] 0.8 mg PO DAILY 12/26/17 01/08/18 traMADol [Ultram] 50 mg PO QID PRN 12/26/17 01/08/18 Morphine ER 15 mg PO BID #6 tablet 12/29/17 01/08/18 Nicotine 21 mg Patch [Nicoderm] 1 patch TOP DAILY patch 12/29/17 01/08/18 Oxycodone HCl/Acetaminophen 1 each PO Q6H PRN #10 tablet 12/29/17 01/08/18 [Percocet 5-325 mg Tablet] - PHYSICAL EXAM AT DISCHARGE Physical Exam Other/Comments: Breath sounds are absent, heart sounds absent, no pulses palpated, no chest rise, absent pupillary and corneal reflexes. - LABS Result Diagrams: 01/11/18 04:55 01/11/18 04:55 Other Lab Results: Laboratory Results WBC 40.2 x10^3/uL (4.8-10.8) H* 01/11/18 04:55 RBC 3.84 10^6/uL (4.70-6.10) L 01/11/18 04:55 Hgb 11.4 g/dL (14.0-18.0) L 01/11/18 04:55 Hct 34.7 % (42.0-52.0) L 01/11/18 04:55 MCV 90.3 fL (80.0-94.0) 01/11/18 04:55 MCH 29.6 pg (27.0-31.0) 01/11/18 04:55 MCHC 32.8 g/dL (32.0-36.0) 01/11/18 04:55 RDW 15.3 % (12.0-15.0) H 01/11/18 04:55 Plt Count 201 10^3/uL (130-450) 01/11/18 04:55 MPV 7.1 fL (7.4-11.4) L 01/11/18 04:55 Neut # (Auto) Not Reportable 01/11/18 04:55 Lymph # (Auto) Not Reportable 01/11/18 04:55 Donley # (Auto) Not Reportable 01/11/18 04:55 Eos # (Auto) Not Reportable 01/11/18 04:55 Baso # (Auto) Not Reportable 01/11/18 04:55 Absolute Nucleated RBC Not Reportable 01/11/18 04:55 Total Counted 100 01/11/18 04:55 Band Neuts % (Manual) 38 % (0-10) H 01/11/18 04:55 Abnorm Lymph % (Manual) 0 % 01/11/18 04:55 Metamyelocytes % 1 % (-0) H 01/11/18 04:55 Myelocytes % 3 % (-0) H 01/11/18 04:55 Nucleated RBC % Not Reportable 01/11/18 04:55 Neutrophils # (Manual) 30.2 10^3/uL (1.5-6.6) H 01/11/18 04:55 Lymphocytes # (Manual) 5.6 10^3/uL (1.5-3.5) H 01/11/18 04:55 Monocytes # (Manual) 2.8 10^3/uL (0.0-1.0) H 01/11/18 04:55 Eosinophils # (Manual) 0.0 10^3/uL (0-0.7) 01/11/18 04:55 Basophils # (Manual) 0.0 10^3/uL (0-0.1) 01/11/18 04:55 Nucleated RBCs 1 % 01/11/18 04:55 Differential Comment MANUAL DIFFERENTIAL 01/11/18 04:55 Manual Slide Review Indicated 01/08/18 05:00 WBC Morphology TOXIC GRANULATION (NORMAL) 01/07/18 22:48 WBC Morphology TOXIC GRANULATION (NORMAL) 01/08/18 05:00 Platelet Estimate NORMAL (130-450,000) (NORMAL) 01/11/18 04:55 Platelet Morphology NORMAL APPEARANCE (NORMAL) 01/08/18 05:00 RBC Morph Micro Appear NORMAL APPEARANCE (NORMAL) 01/11/18 04:55 PT 16.9 secs (9.9-12.6) H 01/08/18 05:00 INR 1.5 (0.8-1.2) H 01/08/18 05:00 Anti-Xa Level 0.7 U/mL (-0.7) 01/11/18 07:00 VBG pH 7.283 (7.31-7.41) L 01/10/18 17:45 VBG pCO2 34.1 mmHg (41-51) L 01/10/18 17:45 VBG pO2 44.1 mmHg (25-47) 01/10/18 17:45 VBG HCO3 15.8 mmol/L (23-28) L 01/10/18 17:45 VBG Total CO2 16.8 mmol/L (24-29) L 01/10/18 17:45 VBG O2 Saturation 77.7 % (60-80) 01/10/18 17:45 VBG Base Excess -9.9 mmol/L (-2 - +2) L 01/10/18 17:45 Sodium 130 mmol/L (135-145) L 01/11/18 04:55 Potassium 4.8 mmol/L (3.5-5.0) 01/11/18 04:55 Chloride 103 mmol/L (101-111) 01/11/18 04:55 Carbon Dioxide 16 mmol/L (21-32) L 01/11/18 04:55 Anion Gap 11.0 (6-13) 01/11/18 04:55 BUN 54 mg/dL (6-20) H 01/11/18 04:55 Creatinine 1.7 mg/dL (0.6-1.2) H 01/11/18 04:55 Estimated GFR (MDRD) 39 (>89) L 01/11/18 04:55 Glucose 136 mg/dL (70-100) H 01/11/18 04:55 Lactic Acid 1.7 mmol/L (0.5-2.2) 01/07/18 22:48 Calcium 6.8 mg/dL (8.5-10.3) L 01/11/18 04:55 Phosphorus 5.1 mg/dL (2.5-4.6) H 01/11/18 04:55 Magnesium 2.2 mg/dL (1.7-2.8) 01/11/18 04:55 Total Bilirubin 0.5 mg/dL (0.2-1.0) 01/11/18 04:55 AST 27 IU/L (10-42) 01/11/18 04:55 ALT 17 IU/L (10-60) 01/11/18 04:55 Alkaline Phosphatase 64 IU/L (42-121) 01/11/18 04:55 Troponin I 0.05 ng/mL (<0.49) 01/07/18 22:48 B-Natriuretic Peptide 281 pg/mL (5-100) H 01/07/18 22:48 Total Protein 3.9 g/dL (6.7-8.2) L 01/11/18 04:55 Albumin 1.4 g/dL (3.2-5.5) L 01/11/18 04:55 Globulin 2.5 g/dL (2.1-4.2) 01/11/18 04:55 Albumin/Globulin Ratio 0.6 (1.0-2.2) L 01/11/18 04:55 Lipase 24 U/L (22-51) 01/07/18 15:42 Urine Color DARK YELLOW 01/07/18 17:30 Urine Clarity CLEAR (CLEAR) 01/07/18 17:30 Urine pH 5.5 PH (5.0-7.5) 01/07/18 17:30 Ur Specific [place] 1.020 (1.002-1.030) 01/07/18 17:30 Urine Protein NEGATIVE mg/dL (NEGATIVE) 01/07/18 17:30 Urine Glucose (UA) NEGATIVE mg/dL (NEGATIVE) 01/07/18 17:30 Urine Ketones NEGATIVE mg/dL (NEGATIVE) 01/07/18 17:30 Urine Occult Blood NEGATIVE (NEGATIVE) 01/07/18 17:30 Urine Nitrite NEGATIVE (NEGATIVE) 01/07/18 17:30 Urine Bilirubin NEGATIVE (NEGATIVE) 01/07/18 17:30 Urine Urobilinogen 0.2 (NORMAL) E.U./dL (NORMAL) 01/07/18 17:30 Ur Leukocyte Esterase NEGATIVE (NEGATIVE) 01/07/18 17:30 Ur Microscopic Review NOT INDICATED 01/07/18 17:30 Urine Culture Comments NOT INDICATED 01/07/18 17:30 Last Dose Date 01-10-18 01/11/18 00:20 Last Dose Time 01201/11/18 00:20 Vancomycin Trough 45.0 ug/mL (10.0-20.0) H* 01/10/18 00:39 Random Vancomycin 29.9 ug/mL 01/11/18 00:20 - DIAGNOSTIC IMAGING Diagnostic Imaging Results: Final report reviewed Diagnostic Imaging Results Comments: EXAM: CT ABDOMEN AND PELVIS EXAM DATE: 01/07/2018 04:11 PM. CLINICAL HISTORY: Distended abd hypotensive tachy. COMPARISONS: 12/26/2017. TECHNIQUE: Routine helical CT imaging was performed through the abdomen and pelvis. IV contrast: None. Enteric contrast: No. Reconstructions: Coronal and sagittal. In accordance with CT protocol optimization, one or more of the following dose reduction techniques were utilized for this exam: automated exposure control, adjustment of mA and/or KV based on patient size, or use of iterative reconstructive technique. FINDINGS: Lung Bases: Continued moderate right and small left pleural effusions with underlying consolidation, right more than left. Liver: Normal. No masses. Gallbladder/Bile Ducts: Diffusely increased intraluminal density, sludge versus secondary excretion of contrast. No ductal dilation. Spleen: Normal. Pancreas: Normal. Adrenal Glands: Normal. Kidneys: Normal. No masses or hydronephrosis. Peritoneal Cavity/Bowel: Marked distention of the colon with transverse colon measuring 11 cm in diameter, with multiple air-fluid levels. Distention extends to the proximal descending colon. No small bowel dilation. Trace free fluid, less than in the previous exam. No free air or lymphadenopathy. Unremarkable region of appendix. Pelvic Organs: Decompressed urinary bladder with Gutierrez catheter in place and small amount of air in the bladder. Vasculature: No aneurysms or other significant abnormality. Bones: Degenerative changes. Previous vertebroplasty of L3 and L4. Other: Bilateral inguinal hernias with fluid in the hernia sacs, but no definite bowel involvement. Previous bowel involvement with the small umbilical hernia has resolved. IMPRESSION: 1. Marked distention of the colon, most likely ileus, versus partial distal colon obstruction. 2. Continued bilateral pleural effusions with underlying consolidation, right more than left. 3. Resolution of bowel involvement and umbilical hernia; continued fluid in bilateral inguinal hernias. EXAM: CT ANGIOGRAM CHEST, ABDOMEN AND PELVIS EXAM DATE: 01/07/2018 06:51 PM. CLINICAL HISTORY: Afib abd pain distension GIB sepsis ? ischemia. COMPARISONS: Abdomen pelvis CT of this same date. Also abdomen and pelvis CT dated 12/26/2017. TECHNIQUE: Routine axial helical CT angiographic imaging was performed through the chest, abdomen, and pelvis. IV Contrast: ISOVUE 300 100mL. Reconstructions: Coronal, sagittal, and 3D MIP reconstructions of the aorta. In accordance with CT protocol optimization, one or more of the following dose reduction techniques were utilized for this exam: automated exposure control, adjustment of mA and/or KV based on patient size, or use of iterative reconstructive technique. FINDINGS: Vascular Structures: Mild dilation of ascending thoracic aorta measuring 3.7 cm. Circumferential or parallel collections of contrast are seen at the aortic root, probably related to motion artifact. Otherwise unremarkable aorta. No aneurysm, definite dissection, or significant atherosclerotic disease of the thoracic aorta, abdominal aorta, or iliac arteries. The visualized mesenteric, and solid organ vascular structures are also within normal limits. Pulmonary arteries generally well opacified; suspicion of small segmental to subsegmental emboli as exemplified on series 4 image 95 in the right base. Small subsegmental vessels in the bases are not opacified and may be involved. No large or central lesions. Lungs/Pleura: Large right and small to moderate left pleural effusions with underlying atelectasis and consolidation, right more than left. Consolidation may contribute to poor opacification of small vessels. Mild atelectasis versus dependent infiltrate in right upper lobe. Clear left upper lobe. No pneumothorax. Mediastinum: Borderline cardiomegaly. No pericardial effusion. At least one vessel coronary artery calcification. No lymphadenopathy. Fluid-filled esophagus most likely due to reflux. Abdominal Organs: See separate report. Peritoneal Cavity: See separate report; large bowel dilation with trace ascites. Pelvic Organs: Decompressed urinary bladder with Gutierrez catheter in place. Mild diffuse wall thickening of distal sigmoid and rectum measuring about 9 mm with apparent thickening at the level of the anus. Hazy infiltration of presacral fat with fluid collections at the level of the anus measuring about 3.5 x 2.0 cm on each side, extending to the right and to the left. Bones: Degenerative changes and other chronic findings. Other: Fluid in bilateral inguinal hernias. IMPRESSION: 1. Essentially negative aortic angiogram and branch vessels. Apparent parallel tracks at the aortic root are believed artifactual due to motion. If clinical suspicion of disease at this level is high, repeat gated study or echocardiogram may be helpful. 2. Small amount of pulmonary emboli in right lung base; associated consolidation may contribute to this appearance. 3. Mild diffuse wall thickening in the rectum with retrorectal and perianal infiltration and fluid collections suspicious for abscess. Correlation with physical exam may be helpful. 4. Large right and small left pleural effusions with associated atelectasis and consolidation, right more than left. 5. Other chronic or incidental findings. EXAM: CHEST RADIOGRAPHY EXAM DATE: 01/07/2018 11:49 PM. CLINICAL HISTORY: Central line placement. COMPARISON: CHEST 1 VIEW 01/07/2018 9:49 PM, ABDOMEN/PELVIS ANGIO 01/07/2018 6:36 P, CHEST 1 VIEW 11/26/2017 8:50 PM. TECHNIQUE: 1 view. FINDINGS IMPRESSION: 1. There is a right IJ central venous catheter with the tip projecting over the upper SVC. No definite evidence of a pneumothorax seen on this examination. 2. Small amount of soft tissue gas projects over the right upper chest, potentially related to vascular access attempts. 3. Hazy opacification of the right hemithorax is noted, likely due to a small layering effusion. 4. Bilateral perihilar streaky opacities, probably related to pulmonary venous congestion. There is at least mild enlargement of the cardiac silhouette as before. 5. Rounded ossific objects projecting over the shoulders bilaterally may be para-articular calcifications or artifact on the imaging plate. These are not seen on the prior studies from 11/26/2017. 6. Possible trace left effusion. EXAM: CHEST RADIOGRAPHY EXAM DATE: 01/07/2018 10:03 PM. CLINICAL HISTORY: Sepsis. Shortness of breath. COMPARISON: CHEST 1 VIEW 11/26/2017 8:50 PM. TECHNIQUE: 1 view. FINDINGS: Lungs/Pleura: Small lung volumes. Pulmonary vascular congestion with possible pulmonary edema. Small right pleural effusion. No pneumothorax. Mediastinum: Rotated. Within exam limitations, heart appears mildly enlarged. Tortuous ectatic atherosclerotic aorta. Other: Osteopenia. IMPRESSION: 1. Cardiomegaly and pulmonary vascular congestion with possible pulmonary edema. 2. Small right pleural effusion. Abdomen x-ray Impression: Distal large bowel obstruction versus ileus Lumbar spine MRI Impression: Compared to the MR from 12/07/2017, interval vertebroplasty at L3 and L4. Inte rval right-sided laminectomy from L2-L3 through L4-L5. Patency of the central canal appears improved over the levels of surgery. T2 signal prolongation with in the disc spaces of L2-L3 and L3-L4, new since the prior MRI. Early discitis could have this appearance, there is no adjacent marrow edema or abnormal enhancement, however. No findings concerning for osteomyelitis or epidural abscess. Bilateral posterior paraspinal muscular edema. On the right this is likely related to postoperative changes from laminectomy. Left-sided edema is also present, nonspecific. No fluid collection that is drainable. Echocardiogram Conclusions 1. Left ventricular systolic function is hyperdynamic with an ejection fraction of greater than 75% 2. There is small, circumferential pericardial effusion present. 3. The aortic root is dilated measuring 4.6 cm. 4. Poor visualization of valves, no mass or vegetation noted, consider BRUNILDA if clinically indicated. - FOLLOW UP Follow Up: Patient has and remains will be released to the home. - TIME SPENT Time Spent in Discharge (Minutes): 45
== END 2018-01-12 03:35 | disposition expired | DRG 871 ==
LOC: ED 15:19 → ICU 20:27
PROVIDERS: ADMIT Internal Medicine; ATTEND Pediatrics
PROC: 3E0G76Z Introduction of Nutritional Substance into Upper GI, Via Natural or Artificial Opening (ICD-10-PCS; principal; 2018-01-07)
DX: A41.9 Sepsis, unspecified organism (principal); R65.21 Severe sepsis with septic shock; I10 Essential (primary) hypertension; E78.5 Hyperlipidemia, unspecified; I48.91 Unspecified atrial fibrillation; J44.9 Chronic obstructive pulmonary disease, unspecified; N40.1 Benign prostatic hyperplasia with lower urinary tract symptoms; R35.0 Frequency of micturition; R33.8 Other retention of urine; I26.99 Other pulmonary embolism without acute cor pulmonale; J18.9 Pneumonia, unspecified organism; K56.609 Unspecified intestinal obstruction, unspecified as to partial versus complete obstruction; G93.49 Other encephalopathy; N17.9 Acute kidney failure, unspecified; E87.1 Hypo-osmolality and hyponatremia; D47.Z9 Other specified neoplasms of uncertain behavior of lymphoid, hematopoietic and related tissue; N13.6 Pyonephrosis; I48.2 Chronic atrial fibrillation; Z79.891 Long term (current) use of opiate analgesic; E86.0 Dehydration; B96.1 Klebsiella pneumoniae [K. pneumoniae] as the cause of diseases classified elsewhere
CPT/HCPCS: 36415; 71045; 71275; 72158; 74018; 74174; 74176; 80053; 80202; 81001; 81003; 82272; 82803; 83605; 83690; 83735; 83880; 84100; 84484; 85025; 85520; 85610; 87040; 87086; 87150; 93306; 96361; 96365; 96367; 96375; 99284